=== PATIENT | male | born 1960 | race Caucasian/White ===

== ENCOUNTER 2020-02-12 14:51 | Inpatient (IN) ==
[2020-02-12] MEDS ORDERED: ONDANSETRON INJ 2 MG/ML 2 ML VIAL IV PRN (15:06)
[2020-02-12] MEDS ORDERED: NITROGLYCERIN SL 0.4 MG/TAB TAB SL PRN (15:06)
[2020-02-12] MEDS ORDERED: ACETAMINOPHEN 325 MG TAB PO PRN (15:06)
[2020-02-12] MEDS ORDERED: POLYETHYLENE (MIRALAX) 17 GM PACK PO PRN (15:06)
[2020-02-12] MEDS ORDERED: ALUMINUM/MAGNESIUM SUSP 30 ML UDC PO PRN (15:06)
[2020-02-12] MEDS ORDERED: MAGNESIUM HYDROXIDE SUSP 30 ML UDC PO PRN (15:06)
[2020-02-12 16:31] LABS: Basophils # (auto) 0.01 K/uL (0-0.2); Basophils % (auto) 0.1 %; Eosinophils # (auto) 0.14 K/uL (0-0.5); Eosinophils % (auto) 1.5 %; Hematocrit (blood only) 46.6 % (42-52); Hemoglobin 15.5 g/dL (14.0-18.0); Immature Granulocytes # (auto) 0.02 K/uL (0.00-0.02); Immature Granulocytes % (auto) 0.2 %; Lymphocytes # (auto) 1.27 K/uL (1.2-3.4); Lymphocytes % (auto) 13.7 %; Mean Corpuscular Hemoglobin 32.6 pg (25-34); Mean Corpuscular Volume 97.9 fL (80-100); Mean Platelet Volume 11.5 fL (7.4-10.4); Monocytes # (auto) 0.53 K/uL (0.11-0.59); Monocytes % (auto) 5.7 %; Neutrophils # (auto) 7.29 K/uL (1.4-6.5); Neutrophils % (auto) 78.8 %; Platelet Count 164 K/uL (130-400); RDW Coefficient of Variation 14.2 % (11.5-14.5); Red Blood Count 4.76 M/uL (4.7-6.1); White Blood Count 9.26 K/uL (4.8-10.8)
[2020-02-12 16:41] LABS: Mean Corpuscular Hgb Conc 33.3 g/dL (32-36)
[2020-02-12 16:42] LABS: INR 1.1 (0.9-1.1); Partial Thromboplastin Ratio 1.1; Partial Thromboplastin Time 29.3 Seconds (21.0-31.0); Prothrombin Time 11.7 Seconds (9.0-12.0)
[2020-02-12 16:48] LABS: Alanine Aminotransferase 29 U/L (12-78); Albumin Level 3.4 gm/dl (3.4-5.0); Aspartate Aminotransferase 13 U/L (15-37); BUN Creatinine Ratio 13.7 (10-20); Blood Urea Nitrogen 20 mg/dl (7-18); Calcium 9.5 mg/dl (8.5-10.1); Carbon Dioxide 24 mmol/L (21-32); Chloride 103 mmol/L (98-107); Est GFR (African American) 60.2; Glucose 139 mg/dl (70-99); Magnesium 2.3 mg/dl (1.8-2.4); Potassium 4.5 mmol/L (3.5-5.1); Sodium 137 mmol/L (136-145)
[2020-02-12 16:54] LABS: Albumin Globulin Ratio 0.9 (0.9-2); Alkaline Phosphatase 95 U/L (45-117); Bilirubin,Total 0.9 mg/dl (0.2-1); Globulin 3.6 gm/dl (2.5-4.0); Troponin I 0.068 ng/ml (0-0.045)
[2020-02-12] MEDS ORDERED: FUROSEMIDE 60 MG in SYRINGE 0 ML IV ONE (17:15)
--- NOTE | 2020-02-12 17:53 | History & Physical Report ---
Date of Service February 12, 2020 Assessment & Plan (1) Acute CHF: -Directly admitted to telemetry unit from cardiology office for evaluation and management of acute CHF, type to be determined. Suspect underlying ischemic disease. -Echo obtained, awaiting reports -Troponin mildly elevated 0.068, no reports of chest pain. EKG in the cardiology office today demonstrated evidence of prior anterior infarct and T wave inversions in the inferior leads -Lasix 60 mg IV twice daily, heparin drip, metoprolol tartrate 12.5 mg every 6 hours as per cardiology -N.p.o. after midnight for possible cath in the morning (2) Abnormal renal function: -Creatinine 1.45 -01/19-1.5, 02/09-1.6 -Likely underlying CKD -Monitor renal functions (3) DVT prophylaxis: -On IV heparin Admission and Anticipated Discharge Date Admission Date: February 12, 2020 History of Present Illness Chief Complaint: Report to cardiology for direct admission for management of CHF Primary Care Provider: Shaji Summers PA-C 59-year-old male without significant PMH due to lack of medical care over the past several years, was referred to the hospital as a direct admission by cardiology for evaluation and management of CHF. Patient recently reestablished with a PCP about 1 month ago after not being seen by medical provider since about 1994. Patient had reported progressive worsening shortness of breath and lower extremity edema over the past several months. Work-up demonstrated evidence of CHF and patient was referred to cardiology where he was seen in the clinic today. Patient reports progressive worsening of shortness of breath minimal exertion over the past several months and recent development of lower extremity edema and orthopnea over the past couple of weeks. Notes about a 12 pound weight gain. Patient was prescribed Lasix by PCP and reports small amount of improvement in lower extremity edema. Patient denies chest pain. No lightheadedness, dizziness, diaphoresis, syncopal events. Denies abdominal pain, nausea, vomiting, diarrhea. No other recent illnesses, fevers, chills. Denies urinary symptoms. EKG obtained on 01/15 showed evidence of anterior infarct. ProBNP on 02/02 14,460. EKG obtained in the office today demonstrated new T wave inversions in the inferior leads. At the time my exam, patient is resting in bed in no acute distress. Allergies Allergy/AdvReac Type Severity Reaction Status Date / Time rabbit dander Allergy Watery Eye Verified 02/12/20 17:33 ragweed pollen Allergy Watery Eye Verified 02/12/20 17:33 Home Medications Home Medications Medication Instructions Recorded Confirmed Type albuterol sulfate 2 puff INHALATION QID PRN 02/12/20 02/12/20 History bupropion HCl (smoking deter) 150 mg PO BID 02/12/20 02/12/20 History furosemide [Lasix] 20 mg PO DAILY 02/12/20 02/12/20 History tamsulosin [Flomax] 0.4 mg PO DAILY 02/12/20 02/12/20 History Past Med/Surg History Medical History BPH (benign prostatic hyperplasia) Surgical History No significant past surgical history Family History Mother Cancer Father Heart valve replaced Social History Smoking Status: Current every day smoker Cigarettes Per Day: 2; Hx Alcohol Use: Yes Alcohol type: beer Hx Substance Use: No Preferred Language: Gambian Communication Ability: Effective Beliefs That Will Affect Care: None Current Living Situation: Other Other Information That Helps Us Care for You: No Feels Safe at Home: Yes Assistive Devices: None Review of Systems Review of Systems: ROS per HPI, all other systems reviewed and negative Physical Exam Constitutional: WD/WN, vitals as above Eyes: PERRL, conjunctivae normal, anicteric sclerae ENMT: external ear and nose normal, oropharynx normal Respiratory: normal respiratory effort; no respiratory distress Auscultation: + diminished lung sounds Cardiovascular: Rate/Rhythm: regular rate and regular rhythm Vessels: normal peripheral pulses Extremities: + edema (+2 pitting edema BLE) Gastrointestinal (Abdomen): normal bowel sounds, soft, nontender, no hepatosplenomegaly Musculoskeletal: no cyanosis or clubbing, extremities motor strength 5/5 Skin: no rashes, warm and dry Neurologic: PERRL, EOMI, accommodation nl, no face palsy, no dysarthria Psychiatric: A+Ox3, euthymic affect Results & Data Results & Data ([facility]) Vital Signs (Past 12 Hours) Vital Signs Temp Pulse Pulse Resp BP Pulse Ox 02/12/20 17:02 96 H 02/12/20 16:01 36.7 C 99 H 20 133/92 95 Laboratory Results Short CBC 02/12/20 Range/Units 16:07 WBC 9.26 (4.8-10.8) K/uL Hgb 15.5 (14.0-18.0) g/dL Hct 46.6 (42-52) % Plt Count 164 (130-400) K/uL BMP 02/12/20 16:07 Sodium 137 Potassium 4.5 Chloride 103 Carbon Dioxide 24 BUN 20 H Creatinine 1.45 H Glucose 139 H Calcium 9.5 Cardiac Enzymes 02/12/20 Range/Units 16:07 Troponin I 0.068 H* (0-0.045) ng/ml Liver Function 02/12/20 Range/Units 16:07 Total Bilirubin 0.9 (0.2-1) mg/dl AST 13 L (15-37) U/L ALT 29 (12-78) U/L Alkaline Phosphatase 95 (45-117) U/L Albumin 3.4 (3.4-5.0) gm/dl Code Status & VTE Plan Code Status Patient is a full code as per my discussion with him. VTE Prophylaxis Plan VTE Prophylaxis will be ordered: Yes Supervising Physician Co-Signing Physician Notes Patient was seen and examined by me, care coordinated with MADDIE Gaytan. Please see her note above for further details. Pt is a 59-year-old male without significant medical hx due to lack of medical care over the past several years, was referred to the hospital as a direct admission by cardiology for evaluation and management of CHF. Pt is currently sitting up in bed, in no acute distress. He does report history of orthopnea and history of lower extremity edema bilaterally. His is present at the bedside, and reports that patient has been short of breath for past couple of months. Currently he is in no acute distress, he is alert and oriented answering questions appropriately. He denies any fevers, chills, chest pain. He says he has occasional cough however this has been chronic, patient is a smoker. Denies any significant sputum production. Mild diffuse rhonchi noted on lung exam, with bibasilar crackles. Heart sounds regular, with positive systolic murmur. Significant lower extremity edema, about 2+ pitting. Skin is warm dry, well-perfused. Patient moves all 4 extremities spont aneously. Abdomen is soft, obese, nontender mildly distended. Discussed with cardiology, plan for echocardiogram, ECG, basic blood work including renal function and troponin. Plan for aggressive diuresis with IV Lasix. Likely cardiac cath in the future after diuresis. MD Chivo
--- NOTE | 2020-02-12 18:05 | XRay Report ---
XR chest 1V portable HISTORY: Shortness of breath. COMPARISON: None. FINDINGS: The cardiac silhouette is mildly enlarged. There is perihilar interstitial and vascular thi ckening consistent with mild pulmonary edema. No pleural effusions. No pneumothorax. IMPRESSION: Cardiomegaly with mild interstitial pulmonary edema. ACT 112: Negative or not required by law. Electronically signed by: Chandu Ortiz M.D. 02/12/2020 6:04 PM
[2020-02-12] MEDS ORDERED: HEPARIN IV BOLUS 7,000 UNITS in SYRINGE 0 ML IV ONE (18:30)
[2020-02-12] MEDS: METOPROLOL TARTRATE 25 MG TAB PO SCH (18:53)
[2020-02-12] MEDS: HEPARIN SODIUM/DEXTROSE 25,000 UNITS/500 ML BAG IV SCH (18:54)
[2020-02-12] MEDS: PATIENT'S ALLERGY INFO NEEDS ENTERED SCH (19:34)
[2020-02-12] MEDS: BuPROPion SR 150 MG TABCR PO SCH (21:10)
[2020-02-13] MEDS: METOPROLOL TARTRATE 25 MG TAB PO SCH ×5 (00:16→23:57)
[2020-02-13] MEDS ORDERED: ALBUT/IPRATROP 3MG/0.5MG NEB 3 ML VIAL NEB STA (00:34)
[2020-02-13] MEDS ORDERED: FUROSEMIDE 60 MG in SYRINGE 0 ML IV SCH ×2 (01:00→06:00)
[2020-02-13 01:04] LABS: Hematocrit (blood only) 46.9 % (42-52); Mean Corpuscular Hemoglobin 31.6 pg (25-34); Mean Corpuscular Volume 98.7 fL (80-100); Mean Platelet Volume 10.9 fL (7.4-10.4); Platelet Count 182 K/uL (130-400); RDW Coefficient of Variation 14.1 % (11.5-14.5); Red Blood Count 4.75 M/uL (4.7-6.1); White Blood Count 8.63 K/uL (4.8-10.8)
[2020-02-13 01:25] LABS: Partial Thromboplastin Ratio 2.1
[2020-02-13 01:29] LABS: BUN Creatinine Ratio 14.4 (10-20); Calcium 9.3 mg/dl (8.5-10.1); Creatinine Clr Calc Pharmacy 53.3 ml/min; Est GFR (Non-African American) 42.3; Potassium 4.2 mmol/L (3.5-5.1)
[2020-02-13 01:35] LABS: Partial Thromboplastin Time 58.7 Seconds (21.0-31.0)
[2020-02-13 06:02] LABS: Estimated Average Glucose 166 mg/dl; Hemoglobin A1C 7.4 % (4.5-5.6)
[2020-02-13] MEDS: ALBUT/IPRATROP 3MG/0.5MG NEB 3 ML VIAL NEB PRN ×2 (06:05→19:07)
[2020-02-13 07:47] LABS: Partial Thromboplastin Ratio 1.8
[2020-02-13 07:51] LABS: Partial Thromboplastin Time 49.3 Seconds (21.0-31.0)
[2020-02-13] MEDS: TAMSULOSIN HCL 0.4 MG CAP PO SCH (07:52)
[2020-02-13] MEDS: BuPROPion SR 150 MG TABCR PO SCH ×2 (07:53→21:08)
--- NOTE | 2020-02-13 08:30 | Cardiology Consultation ---
Date of Consultation February 13, 2020 Assessment & Plan (1) Severe aortic stenosis: (2) CKD (chronic kidney disease): (3) Tobacco abuse: (4) DM2 (diabetes mellitus, type 2): (5) Heart failure with acute decompensation, type unknown: Patient initially presented in decompensated heart failure with etiology unknown. Stat echocardiogram revealed a severely reduced LV systolic function with apical dyskinesis and critical aortic stenosis. Ischemia has not been ruled out as a possible cause for his decreased EF and will require cardiac catheterization during this admission. Obviously, aortic stenosis is also possible nidus of his failure. He has been started on low-dose beta-astrid, IV Lasix and heparin for possible LV thrombus. We will continue with aggressive diuresis today and follow renal function did bump slightly after 2 doses of Lasix. Electrolytes remain within normal range and will continue to be followed and repleted as necessary. We will repeat a limited echocardiogram to further evaluate for possible apical thrombus and heparin will be continued for now We will hold off on making any other medication at additions at this time given his relative hypotension History of Present Illness Reason for Consultation: Acute decompensated CHF Requesting Physician: Delmis PERKINS Attending Physician: Jose Moncada MD History of Present Illness Chief complaint: Progressive shortness of breath Mr. Duron is a very pleasant 59-year-old gentleman who has been a refugee from medical care since 1996. He initially established with Hunter Lomeli PCP last week with complaints of progressive shortness of breath over several months. He and his state that he is always short of breath at baseline but they have always written that off to his cigarette use. However, over the last 3 months they have noticed he has been having increasing dyspnea with exertion. She states that is to the point now where he if he walks up from the basement steps he has to lean over the kitchen table for several minutes to get his breath back. This is occasionally associated with significant palpitations as well which he describes as his heart beating out of his chest. He completely denies any chest discomfort with these episodes though. He has also noticed significant orthopnea to the point where he can not lie down for more than a few minutes before he starts feeling like he is drowning. He has also developed significant lower extremity edema and abdominal distention. At his initial evaluation blood work was drawn which showed a BNP of over 14,000 and a GFR of 46. Initial EKG showed old anterior infarct pattern with repeat EKG confirming old inferior infarct pattern but now significant ST segment depressions in the inferior and lateral leads as well. During the interview today he was dyspneic with exertion. He was directly admitted to telemetry on 02/12/2020. Repeat chest x-ray confirmed vascular congestion. Stat echocardiogram showed severely reduced LV systolic function with an EF of less than 15% and critical aortic stenosis. Low-dose beta-astrid was started and Lasix was made IV twice daily. Also been well controlled overnight. Allergies Allergy/AdvReac Type Severity Reaction Status Date / Time rabbit dander Allergy Watery Eye Verified 02/12/20 17:33 ragweed pollen Allergy Watery Eye Verified 02/12/20 17:33 Home Medications Home Medications Medication Instructions Recorded Confirmed Type albuterol sulfate 2 puff INHALATION QID PRN 02/12/20 02/12/20 History bupropion HCl (smoking deter) 150 mg PO BID 02/12/20 02/12/20 History furosemide [Lasix] 20 mg PO DAILY 02/12/20 02/12/20 History tamsulosin [Flomax] 0.4 mg PO DAILY 02/12/20 02/12/20 History Patient History Medical History BPH (benign prostatic hyperplasia) Surgical History No significant past surgical history Family History Mother Cancer Father Heart valve replaced Social History Smoking Status: Current every day smoker Cigarettes Per Day: 2; Hx Alcohol Use: Yes Alcohol type: beer Hx Substance Use: No Preferred Language: Malaysian Communication Ability: Effective Beliefs That Will Affect Care: None Current Living Situation: Other Other Information That Helps Us Care for You: No Feels Safe at Home: Yes Assistive Devices: None Review of Systems Review of Systems: All systems reviewed & are unremarkable except as noted in HPI & below Physical Exam Physical Exam: General: Awake, alert and oriented x 3. No acute distress. HEENT: Normocephalic, atraumatic. Pupils equal, round and reactive to light and accommodation. Extraocular muscles are intact. Anicteric sclera. Moist mucous membranes. Neck: No JVD. No bruit. Cardiovascular: Regular. Positive S-4. Normal S-1 and S-2. No S-3. 3/6 mid to late systolic ejection murmur, greatest at the right sternal border, second intercostal space with radiation to the bilateral carotids. No rubs. Pulmonary: Clear to auscultation bilaterally. No rales, rhonchi, or wheezing. Abdomen: Bowel sounds x 4, soft. No rebound, guarding or tenderness. No organomegaly. Extremities: No clubbing, cyanosis or edema. +2 pedal pulses bilaterally. Skin: Warm and dry. Results & Data ([facility]) Vital Signs (Past 12 Hours) Vital Signs Temp Pulse Resp BP BP Pulse Ox 02/13/20 07:18 36.6 C 65 18 117/77 92 02/13/20 06:05 65 14 99 02/13/20 03:10 36.4 C L 70 16 113/83 97 02/13/20 00:42 70 16 97 02/13/20 00:00 36.7 C 75 18 122/87 97 Laboratory Results Laboratory Results - last 24 hr 02/12/20 02/12/20 02/12/20 16:07 16:07 16:07 WBC 9.26 RBC 4.76 Hgb 15.5 Hct 46.6 MCV 97.9 MCH 32.6 MCHC 33.3 RDW Std Deviation 51.0 H RDW Coeff of Alpa 14.2 Plt Count 164 MPV 11.5 H Immature Gran % (Auto) 0.2 Neut % (Auto) 78.8 Lymph % (Auto) 13.7 Edwards % (Auto) 5.7 Eos % (Auto) 1.5 Baso % (Auto) 0.1 Neut # (Auto) 7.29 H Lymph # (Auto) 1.27 Edwards # (Auto) 0.53 Eos # (Auto) 0.14 Baso # (Auto) 0.01 Immature Gran # (Auto) 0.02 PT 11.7 INR 1.1 APTT 29.3 PTT Ratio 1.1 Sodium 137 Potassium 4.5 Chloride 103 Carbon Dioxide 24 Anion Gap 10.0 BUN 20 H Creatinine 1.45 H Est Cr Clr Drug Dosing Not Reportable Est GFR ( Amer) 60.2 Est GFR (Non-Af Amer) 52.0 BUN/Creatinine Ratio 13.7 Glucose 139 H Estimat Average Glucose Hemoglobin A1c Calcium 9.5 Magnesium 2.3 Total Bilirubin 0.9 AST 13 L ALT 29 Alkaline Phosphatase 95 Troponin I 0.068 H* Total Protein 7.0 Albumin 3.4 Globulin 3.6 Albumin/Globulin Ratio 0.9 02/13/20 02/13/20 02/13/20 00:53 00:53 00:53 WBC 8.63 RBC 4.75 Hgb 15.0 Hct 46.9 MCV 98.7 MCH 31.6 MCHC 32.0 RDW Std Deviation 51.0 H RDW Coeff of Alpa 14.1 Plt Count 182 MPV 10.9 H Immature Gran % (Auto) Neut % (Auto) Lymph % (Auto) Edwards % (Auto) Eos % (Auto) Baso % (Auto) Neut # (Auto) Lymph # (Auto) Edwards # (Auto) Eos # (Auto) Baso # (Auto) Immature Gran # (Auto) PT INR APTT PTT Ratio Sodium 137 Potassium 4.2 Chloride 101 Carbon Dioxide 27 Anion Gap 10.0 BUN 25 H Creatinine 1.72 H Est Cr Clr Drug Dosing 53.3 Est GFR ( Amer) 49.0 Est GFR (Non-Af Amer) 42.3 BUN/Creatinine Ratio 14.4 Glucose 135 H Estimat Average Glucose 166 Hemoglobin A1c 7.4 H Calcium 9.3 Magnesium Total Bilirubin AST ALT Alkaline Phosphatase Troponin I Total Protein Albumin Globulin Albumin/Globulin Ratio 02/13/20 02/13/20 00:53 07:12 WBC RBC Hgb Hct MCV MCH MCHC RDW Std Deviation RDW Coeff of Alpa Plt Count MPV Immature Gran % (Auto) Neut % (Auto) Lymph % (Auto) Edwards % (Auto) Eos % (Auto) Baso % (Auto) Neut # (Auto) Lymph # (Auto) Edwards # (Auto) Eos # (Auto) Baso # (Auto) Immature Gran # (Auto) PT INR APTT 58.7 H* 49.3 H* PTT Ratio 2.1 1.8 Sodium Potassium Chloride Carbon Dioxide Anion Gap BUN Creatinine Est Cr Clr Drug Dosing Est GFR ( Amer) Est GFR (Non-Af Amer) BUN/Creatinine Ratio Glucose Estimat Average Glucose Hemoglobin A1c Calcium Magnesium Total Bilirubin AST ALT Alkaline Phosphatase Troponin I Total Protein Albumin Globulin Albumin/Globulin Ratio Medications Administered Current Inpatient Medications Acetaminophen (Acetaminophen 325 Mg Tab) 650 mg PO Q4H PRN PRN Reason: Pain or Fever Stop: 03/13/20 15:05 Al Hydrox/Mg Hydrox/Simethicone (Aluminum/Magnesium Susp 30 Ml Udc) 15 ml PO Q4H PRN PRN Reason: Dyspepsia Stop: 03/13/20 15:05 Albuterol (Albut/Ipratrop 3mg/0.5mg Neb 3 Ml Vial) 3 ml NEB Q2H PRN PRN Reason: Wheezing Stop: 03/14/20 00:33 Last Admin: 02/13/20 06:05 Dose: 3 ml Documented by: Bupropion HCl (Bupropion Sr 150 Mg Tabcr) 150 mg PO BID ESTUARDO Stop: 03/13/20 20:59 Last Admin: 02/13/20 07:53 Dose: 150 mg Documented by: Heparin Sodium/Dextrose (Heparin Sodium/Dextrose) 25,000 units in 500 mls @ 30 mls/hr IV .[id number] [facility]; Protocol Stop: 03/13/20 17:44 Last Titration: 02/13/20 06:52 Dose: 1,500 units/hr, 30 mls/hr Documented by: Furosemide 60 mg/ Syringe 6 mls @ 4 mls/min IV Q12H ESTUARDO Stop: 03/14/20 00:59 Last Admin: 02/13/20 02:27 Dose: 4 mls/min Documented by: Magnesium Hydroxide (Magnesium Hydroxide Susp 30 Ml Udc) 30 ml PO Q12H PRN PRN Reason: Constipation Stop: 03/13/20 15:05 Metoprolol Tartrate (Metoprolol Tartrate 25 Mg Tab) 12.5 mg PO Q6 ESTUARDO Stop: 03/13/20 17:59 Last Admin: 02/13/20 06:01 Dose: 12.5 mg Documented by: Nitroglycerin (Nitroglycerin Sl 0.4 Mg/Tab Tab) 0.4 mg SL UD PRN PRN Reason: Chest Pain Stop: 03/13/20 15:05 Ondansetron HCl (Ondansetron Inj 2 Mg/Ml 2 Ml Vial) 4 mg IV Q6H PRN PRN Reason: Nausea Stop: 03/13/20 15:05 Polyethylene Glycol (Polyethylene (Miralax) 17 Gm Pack) 17 gm PO DAILY PRN PRN Reason: Constipation Stop: 03/13/20 15:05 Tamsulosin HCl (Tamsulosin Hcl 0.4 Mg Cap) 0.4 mg PO DAILY [facility] Stop: 03/14/20 08:59 Last Admin: 02/13/20 07:52 Dose: 0.4 mg Documented by:
[2020-02-13] MEDS ORDERED: PERFLUTREN LIPID MICROSPHERE (DEFINITY) IV ONE (09:46)
[2020-02-13] MEDS: HEPARIN SODIUM/DEXTROSE 25,000 UNITS/500 ML BAG IV SCH (11:12)
[2020-02-13] MEDS: FUROSEMIDE 60 MG in SYRINGE 0 ML IV SCH ×2 (13:24→21:08)
--- NOTE | 2020-02-13 16:43 | Hospitalist Progress Note ---
Date of Service February 13, 2020 Assessment & Plan (1) Acute CHF: was sent from cardiology office for worsening SOB with exertion CXR on admission showed cardiomegaly with mild interstitial pulmonary edema. was starting on lasix 60mg IV BID cardiology on board case discused with Dr. Schneider Lasix increased to 60mg TID IV ECHO showed severely reduced LV systolic function with apical dyskinesis and critical aortic stenosis.EF 15% Will need cardiac work up to r/o any ischemia. 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 Continue IV heparin drip Plan to repeat a limited echo to assess for the apical thrombus Tobacco abuse Counseling on smoking cessation (5) DVT prophylaxis: On IV heparin drip Code status Full code Admission and Anticipated Discharge Date Admission Date: February 12, 2020 Subjective Pt was seen and examined Sitting in bed with no distress Pt said that her breathing slightly improves He said that his LE extremities swelling slightly improve Denies any chest pain, palpitation, dizziness and fever Physical Exam Physical Exam: General- No acute distress Head- atraumatic Eyes- PERRL, EOMI, ENT- oropharynx clear Neck- supple, no JVD Lungs- clear to auscultation Heart- regular rhythm; +murmur Abdomen- normal bowel sounds, soft, nontender Extremities- no calf tenderness, +edema Neuro- alert, oriented x 3; PERRL, EOMI; no facial palsy; no dysarthria Skin- warm & dry Results & Data Results & Data ([facility]) Vital Signs (Past 12 Hours) Vital Signs Temp Pulse Resp BP BP Pulse Ox 02/13/20 15:38 36.3 C L 64 22 107/72 92/62 L 94 02/13/20 11:35 36.9 C 69 13 95/67 L 92 02/13/20 07:18 36.6 C 65 18 117/77 92 02/13/20 06:05 65 14 99
[2020-02-13] MEDS ORDERED: GLUCOSE 10 TABS/TUBE PO PRN (19:22)
[2020-02-13] MEDS ORDERED: CARBOHYDRATES FOR HYPOGLYCEMIA PO PRN (19:22)
[2020-02-13] MEDS ORDERED: GLUCAGON FOR INJ 1 MG VIAL SQ PRN (19:22)
[2020-02-13] MEDS ORDERED: DEXTROSE 50% 50 ML SYRINGE IV PRN (19:22)
[2020-02-13] MEDS ORDERED: GLUCOSE 40% GEL 15 GM TUBE PO PRN (19:22)
[2020-02-13] MEDS: INSULIN ASPART 100 UNITS/ML 3 ML PEN SC SCH (21:08)
[2020-02-14] MEDS: ALBUT/IPRATROP 3MG/0.5MG NEB 3 ML VIAL NEB PRN ×2 (01:02→21:06)
[2020-02-14] MEDS: HEPARIN SODIUM/DEXTROSE 25,000 UNITS/500 ML BAG IV SCH ×2 (03:05→19:10)
[2020-02-14 05:00] LABS: Hematocrit (blood only) 45.4 % (42-52); Hemoglobin 15.3 g/dL (14.0-18.0); Mean Corpuscular Hemoglobin 32.8 pg (25-34); Mean Corpuscular Hgb Conc 33.7 g/dL (32-36); Mean Corpuscular Volume 97.2 fL (80-100); Mean Platelet Volume 11.3 fL (7.4-10.4); Platelet Count 166 K/uL (130-400); RDW Coefficient of Variation 14.1 % (11.5-14.5); RDW Standard Deviation 50.3 fL (36.4-46.3); Red Blood Count 4.67 M/uL (4.7-6.1); White Blood Count 8.74 K/uL (4.8-10.8)
[2020-02-14 05:18] LABS: BUN Creatinine Ratio 19.1 (10-20); Creatinine Clr Calc Pharmacy 43.9 ml/min; Est GFR (African American) 39.2; Est GFR (Non-African American) 33.8; Potassium 4.1 mmol/L (3.5-5.1)
[2020-02-14 05:27] LABS: Partial Thromboplastin Time 56.5 Seconds (21.0-31.0)
[2020-02-14] MEDS: FUROSEMIDE 60 MG in SYRINGE 0 ML IV SCH ×2 (05:53→14:43)
[2020-02-14] MEDS: INSULIN ASPART 100 UNITS/ML 3 ML PEN SC SCH ×4 (05:55→21:14)
[2020-02-14] MEDS: METOPROLOL TARTRATE 25 MG TAB PO SCH ×3 (06:34→17:45)
[2020-02-14] MEDS: BuPROPion SR 150 MG TABCR PO SCH ×2 (07:58→19:53)
[2020-02-14] MEDS: TAMSULOSIN HCL 0.4 MG CAP PO SCH (07:58)
--- NOTE | 2020-02-14 10:54 | Cardiology Progress Note ---
Date of Service February 14, 2020 Assessment & Plan (1) Severe aortic stenosis: (2) CKD (chronic kidney disease): (3) Tobacco abuse: (4) DM2 (diabetes mellitus, type 2): (5) Heart failure with acute decompensation, type unknown: Patient initially presented in decompensated heart failure with etiology unknown. Stat echocardiogram revealed a severely reduced LV systolic function with apical dyskinesis and critical aortic stenosis. Ischemia has not been ruled out as a possible cause for his decreased EF and will require cardiac catheterization during this admission. Obviously, aortic stenosis is also possible nidus of his failure. He has been started on low-dose beta-astrid, IV Lasix and heparin I will defer diuretic management to our Nephrology colleagues now that his creatinine is continue to dip. My hope is that his renal function will improve and he will continue to diurese it when may be all form cardiac catheterization early next week. At this point I am unable to increase his medications any further given his relative bradycardia and hypotension. My hope is that with further diuresis and the effect on the Starling curve was of of his LV we will see an increase in his blood pressure. Ultimately, will require CT surgery evaluation for aortic valve replacement and possible CABG depending on results of his catheterization. Continue monitor on telemetry. Admission and Anticipated Discharge Date Admission Date: February 12, 2020 Subjective Patient seen and examined, chart reviewed. and daughter at the bedside. States he still significantly orthopneic overnight and has not noticed much change in his breathing. He has been diuresing well and does feel his lower extremity edema is improving somewhat. He continues to deny any chest pain, palpitations, lightheadedness or dizziness. Telemetry reviewed: Normal sinus rhythm without arrhythmias or significant ectopy. Review of Systems Review of Systems: All systems reviewed & are unremarkable except as noted in HPI & below Physical Exam Physical Exam: General: Awake, alert and oriented x 3. No acute distress. HEENT: Normocephalic, atraumatic. Pupils equal, round and reactive to light and accommodation. Extraocular muscles are intact. Anicteric sclera. Moist mucous membranes. Neck: No JVD. No bruit. Cardiovascular: Regular. Positive S-4. Normal S-1 and S-2. No S-3. 3/6 mid to late systolic ejection murmur, greatest at the right sternal border, second intercostal space with radiation to the bilateral carotids. No rubs. Pulmonary: Clear to auscultation bilaterally. No rales, rhonchi, or wheezing. Abdomen: Bowel sounds x 4, soft. No rebound, guarding or tenderness. No organomegaly. Extremities: No clubbing, cyanosis or edema. +2 pedal pulses bilaterally. Skin: Warm and dry. Results & Data ([facility]) Vital Signs (Past 12 Hours) Vital Signs Temp Pulse Resp BP BP Pulse Ox 02/14/20 08:13 36.4 C L 66 18 104/70 93 02/14/20 06:33 63 118/85 02/14/20 05:52 66 101/61 02/14/20 02:55 36.3 C L 66 17 90/62 L 95 02/14/20 01:04 65 16 98 02/13/20 23:25 36.5 C 63 18 110/78 94
--- NOTE | 2020-02-14 12:37 | Electrocardiogram Report ---
Test Reason : Blood Pressure : / mmHG Vent. Rate : 066 BPM Atrial Rate : 066 BPM P-R Int : 182 ms QRS Dur : 094 ms QT Int : 460 ms P-R-T Axes : 057 039 107 degrees QTc Int : 482 ms Sinus rhythm Premature atrial complexes Possible Left atrial enlargement Anterior infarct , age undetermined Abnormal ECG No previous ECG available for comparison Confirmed by Rob Marlow ([id number]) on 02/14/2020 12:37:39 PM Referred By: True Stern Confirmed By:Rob Marlow
--- NOTE | 2020-02-14 16:01 | Hospitalist Progress Note ---
Date of Service February 14, 2020 Assessment & Plan (1) Acute CHF: was sent from cardiology office for worsening SOB with exertion CXR on admission showed cardiomegaly with mild interstitial pulmonary edema. was starting on lasix 60mg IV BID Cardiology on board lasix help due to bumped on creatinine ECHO showed severely reduced LV systolic function with apical dyskinesis and critical aortic stenosis.EF 15% Will need cardiac work up to r/o any ischemia. 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 Continue IV heparin drip Plan to repeat a limited echo to assess for the apical thrombus Tobacco abuse Counseling on smoking cessation (5) DVT prophylaxis: On IV heparin drip Code status Full code Admission and Anticipated Discharge Date Admission Date: February 12, 2020 Subjective Pt was seen and examined Sitting at the edge of the bed with no distress Pt said that he feels ok He said that his breathing is ok Denies any chest pain, palpitation, dizziness and SOB Physical Exam Physical Exam: General- No acute distress Head- atraumatic Eyes- PERRL, EOMI, ENT- oropharynx clear Neck- supple, no JVD Lungs- clear to auscultation Heart- regular rhythm; +murmur Abdomen- normal bowel sounds, soft, nontender Extremities- no calf tenderness, +edema Neuro- alert, oriented x 3; PERRL, EOMI; no facial palsy; no dysarthria Skin- warm & dry Results & Data Results & Data ([facility]) Vital Signs (Past 12 Hours) Vital Signs Temp Pulse Resp BP BP Pulse Ox 02/14/20 15:23 36.5 C 64 21 94/66 L 90/60 L 93 02/14/20 11:57 36.4 C L 64 18 94/60 L 91 02/14/20 08:13 36.4 C L 66 18 104/70 93 02/14/20 06:33 63 118/85 02/14/20 05:52 66 101/61
--- NOTE | 2020-02-14 16:08 | Nephrology Consultation ---
Date of Consultation February 14, 2020 Assessment & Plan (1) FRANSISCO (acute kidney injury): Patient with acute kidney injury likely due to cardiorenal syndrome. Patient has severe aortic stenosis and low EF. He likely preload dependent. Admission creatinine was 1.5. Patient likely has baseline CKD stage 3. He had a creatinine of 1.5 in December as well. -patient will need the gentle diuresis as discussed below -will check renal ultrasound for morphology. -will check urine protein and urine microscopy -avoid hypotension and monitor renal function with daily BMP. (2) Heart failure with acute decompensation, type unknown: Patient with the CHF responding well to Lasix. Agree with the diuresis to optimize his volume status before cardiac catheterization. Given severe aortic stenosis, will do gentle diuresis. Patient has already received 60 mg of IV Lasix this morning. Will not given additional Lasix today. Consider starting Lasix tomorrow at 20 mg IV twice daily. Target the net loss of about 1-2 L daily. (3) Severe aortic stenosis: Patient with severe aortic stenosis on echocardiogram and the preload dependent. Avoid aggressive diuresis. Cardiology planning cardiac catheterization early next week. Recommend holding Lasix the day prior to cardiac catheterization. History of Present Illness Reason for Consultation: FRANSISCO on CKD Requesting Physician: Jose Moncada MD Attending Physician: Jose Moncada MD History of Present Illness This 59-year-old male being seen for acute kidney injury on CKD. He was admitted on 02/12/2020 with shortness of breath due to CHF exacerbation. Creatinine on admission was 1.5 but has increased to 2 after starting him on IV Lasix 60 mg twice daily. Patient has not seen doctors since 1996. For he told me he had the a big kidney stone in the left kidney in 1996 and it was dissolved with medications. He has not seen doctors since then. He is making urine and was net -3 L yesterday. His breathing has improved. He still has leg swelling but is also improving. Echo shows an EF of 20 25% and severe aortic stenosis. Patient lives at home with his . He was seen today with the daughter at the bedside. 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 He currently smokes 2 cigarettes a day but has been a long-term heavy smoker Allergies Allergy/AdvReac Type Severity Reaction Status Date / Time rabbit dander Allergy Watery Eye Verified 02/12/20 17:33 ragweed pollen Allergy Watery Eye Verified 02/12/20 17:33 Home Medications Home Medications Medication Instructions Recorded Confirmed Type albuterol sulfate 2 puff INHALATION QID PRN 02/12/20 02/12/20 History bupropion HCl (smoking deter) 150 mg PO BID 02/12/20 02/12/20 History furosemide [Lasix] 20 mg PO DAILY 02/12/20 02/12/20 History tamsulosin [Flomax] 0.4 mg PO DAILY 02/12/20 02/12/20 History Patient History Medical History BPH (benign prostatic hyperplasia) Surgical History No significant past surgical history Family History Mother Cancer Father Heart valve replaced Social History Smoking Status: Current every day smoker Cigarettes Per Day: 2; Hx Alcohol Use: Yes Alcohol type: beer Hx Substance Use: No Preferred Language: Urdu Communication Ability: Effective Beliefs That Will Affect Care: None marital status: Single Current Living Situation: Other Other Information That Helps Us Care for You: No Feels Safe at Home: Yes Assistive Devices: None Review of Systems Review of Systems: All systems reviewed & are unremarkable except as noted in HPI & below Physical Exam Physical Exam: General exam: Appears comfortable, no acute distress HEENT: Pupils are equal and reactive to light Neck: No JVD, neck is supple trachea is midline Respiratory system: Clear breath sounds bilaterally. Gastrointestinal: Abdomen is soft, non distended, non tender, bowel sounds are present CVS: Regular rate and rhythm. No murmurs, rubs or gallops Musculoskeletal: No joint or muscle tenderness Extremities: Non tender, 1+ edema, peripheral pulses are present Neuro: Oriented, no tremors, no focal neurological deficits Skin: No rashes Results & Data ([facility]) Vital Signs (Past 12 Hours) Vital Signs Temp Pulse Resp BP BP Pulse Ox 02/14/20 15:23 36.5 C 64 21 94/66 L 90/60 L 93 02/14/20 11:57 36.4 C L 64 18 94/60 L 91 02/14/20 08:13 36.4 C L 66 18 104/70 93 09/25/20 06:33 63 118/85 02/14/20 05:52 66 101/61 Laboratory Results 02/14/20 04:52 02/14/20 04:52 WBC 8.74 RBC 4.67 L MCV 97.2 MCH 32.8 MCHC 33.7 RDW Std Deviation 50.3 H RDW Coeff of Alpa 14.1 Plt Count 166 MPV 11.3 H
[2020-02-14 16:29] LABS: Appearance Urine Cloudy (Clear); Bacteria Urine Automated 1+ (Negative); Bilirubin Urine Negative (Negative); Blood Urine Trace (Negative); Color Urine Yellow; Glucose Urine UA Negative (Negative); Ketones Urine Negative (Negative); Leukocyte Esterase Urine 3+ (Negative); Nitrite Urine Positive (Negative); Protein Urine Negative (Negative); Specific Gravity Urine 1.012 (1.000-1.030); Urobilinogen Urine Negative (Negative); WBC Urine Automated >30 /hpf (0-5); pH Urine 5.5 (4.5-7.5)
[2020-02-14 16:53] LABS: Creatinine Urine Random 67.1 mg/dl; Protein Creatinine Ratio Urine 0.2 (0-0.2); Total Protein Urine Random 13.4 mg/dl (0-11.9)
[2020-02-14 16:56] LABS: RBC Urine Automated 0-4 /hpf (0-4)
--- NOTE | 2020-02-14 20:48 | Ultrasound Report ---
RENAL ULTRASOUND CLINICAL HISTORY: CKD, renal stones COMPARISON STUDY: None. TECHNIQUE: Sonography of the kidneys and the urinary bladder was performed. FINDINGS: Left kidney is partially obscured on this examination. The left kidney measures approximate ly 8 cm in length. There is moderate left renal atrophy. No hydronephrosis is present. The right kidn ey measures 11.2 cm in maximal dimension. No calculus or mass is identified although sensitivity is d iminished on this exam. Both ureteral jets were identified. Mild bladder wall irregularity is noted. IMPRESSION: 1. No hydronephrosis. 2. Moderate left renal atrophy. 3. Mild bladder wall irregularity. ACT 112: Negative or not required by law. Electronically signed by: Moshe Jackson M.D. 02/14/2020 8:47 PM
[2020-02-15] MEDS: METOPROLOL TARTRATE 25 MG TAB PO SCH ×5 (00:04→23:35)
[2020-02-15 06:09] LABS: Partial Thromboplastin Ratio 1.8
[2020-02-15 06:26] LABS: Partial Thromboplastin Time 50.7 Seconds (21.0-31.0)
[2020-02-15 06:28] LABS: BUN Creatinine Ratio 20.5 (10-20); Calcium 9.6 mg/dl (8.5-10.1); Est GFR (African American) 32.8; Est GFR (Non-African American) 28.3; Potassium 4.2 mmol/L (3.5-5.1)
[2020-02-15] MEDS: TAMSULOSIN HCL 0.4 MG CAP PO SCH (08:27)
[2020-02-15] MEDS: BuPROPion SR 150 MG TABCR PO SCH ×2 (08:27→20:33)
[2020-02-15] MEDS: INSULIN ASPART 100 UNITS/ML 3 ML PEN SC SCH ×4 (08:28→20:36)
--- NOTE | 2020-02-15 08:56 | Nephrology Progress Note ---
Date of Service February 15, 2020 Assessment & Plan (1) FRANSISCO (acute kidney injury): Patient with acute kidney injury likely due to cardiorenal syndrome. Patient has severe aortic stenosis and low EF. He likely preload dependent. Admission creatinine was 1.5. Patient likely has baseline CKD stage 3. He had a creatinine of 1.5 in December as well. -Decrease the diuretic to 20 mg IV BID -USS shows L-8.0. R- 11.2 with mild left renal atrophy -PCR-0.4, few red cells. -avoid hypotension and monitor renal function with daily BMP. (2) Heart failure with acute decompensation, type unknown: Patient with the CHF responding well to Lasix. Agree with the diuresis to optimize his volume status before cardiac catheterization. Given severe aortic stenosis, will do gentle diuresis. Patient has already received 60 mg of IV Lasix this morning. Will not given additional Lasix today. Consider starting Lasix tomorrow at 20 mg IV twice daily. Target the net loss of about 1-2 L daily. (3) Severe aortic stenosis: Patient with severe aortic stenosis on echocardiogram and the preload dependent. Avoid aggressive diuresis. Cardiology planning cardiac catheterization early next week. Recommend holding Lasix the day prior to cardiac catheterization. Admission and Anticipated Discharge Date Admission Date: February 12, 2020 Results & Data ([facility]) Vital Signs (Past 12 Hours) Vital Signs Temp Pulse Resp BP BP Pulse Ox 02/15/20 08:13 36.5 C 56 L 18 108/72 90 02/15/20 05:50 68 115/80 02/15/20 03:45 36.7 C 60 18 110/75 93 02/15/20 00:02 37 C 62 18 102/69 94 02/14/20 21:07 72 20 96
[2020-02-15 10:50] LABS: Appearance Urine Cloudy (Clear); Bacteria Urine Automated 1+ (Negative); Bilirubin Urine Negative (Negative); Blood Urine Trace (Negative); Cast Urine Automated 0 /lpf (0-5); Color Urine Yellow; Glucose Urine UA Trace (Negative); Ketones Urine Negative (Negative); Leukocyte Esterase Urine 3+ (Negative); Nitrite Urine Positive (Negative); Protein Urine 1+ (Negative); Specific Gravity Urine 1.017 (1.000-1.030); Urobilinogen Urine Negative (Negative); WBC Urine Automated >30 /hpf (0-5); pH Urine 6.5 (4.5-7.5)
--- NOTE | 2020-02-15 10:57 | XRay Report ---
XR chest 2V PA/lateral HISTORY: 59 years-old Male chf patient presents with acute shortness of breath and possible congesti ve heart failure COMPARISON: Chest radiograph 02/12/2020 TECHNIQUE: PA and lateral views of the chest FINDINGS: Cardiac silhouette is moderately enlarged. No pneumothorax, pleural effusion or airspace consolidatio n for pneumonia. There is decreased pulmonary vascular congestion. No overt pulmonary edema. Degenera tive changes of the shoulders and spine. IMPRESSION: Cardiomegaly with decreased pulmonary vascular congestion. ACT 112: Negative or not required by law. The above report was generated using voice recognition software. It may contain grammatical, syntax o r spelling errors. Electronically signed by: Arthur Simon M.D. 02/15/2020 10:55 AM
--- NOTE | 2020-02-15 13:16 | Cardiology Progress Note ---
Date of Service February 15, 2020 Assessment & Plan (1) Severe aortic stenosis: (2) CKD (chronic kidney disease): (3) Tobacco abuse: (4) DM2 (diabetes mellitus, type 2): (5) Heart failure with acute decompensation, type unknown: Patient initially presented in decompensated heart failure with etiology unknown. Stat echocardiogram revealed a severely reduced LV systolic function with apical dyskinesis and critical aortic stenosis. Ischemia has not been ruled out as a possible cause for his decreased EF and will require cardiac catheterization during this admission. Obviously, aortic stenosis is also possible nidus of his failure. He has been started on low-dose beta-astrid, IV Lasix Apical thrombus ruled out we will discontinue IV heparin at this time. I will defer diuretic management to our Nephrology colleagues now that his creatinine is continue to dip. My hope is that his renal function will improve and he will continue to diurese it when may be all form cardiac catheterization early next week. At this point I am unable to increase his medications any further given his relative bradycardia and hypotension. My hope is that with further diuresis and the effect on the Starling curve was of of his LV we will see an increase in his blood pressure. Ultimately, will require CT surgery evaluation for aortic valve replacement and possible CABG depending on results of his catheterization. Continue monitor on telemetry. Admission and Anticipated Discharge Date Admission Date: February 12, 2020 Subjective Patient seen and examined, chart reviewed. Patient's at bedside. States he is feeling better. Notes he continues to diurese. Still unable to lie flat at night but no shortness of breath while up and around during the day. Contin ues to deny chest pain, palpitations, lightheadedness, dizziness or syncope. Telemetry reviewed: Normal sinus rhythm without arrhythmia or significant ectopy. Review of Systems Review of Systems: All systems reviewed & are unremarkable except as noted in HPI & below Physical Exam Physical Exam: General: Awake, alert and oriented x 3. No acute distress. HEENT: Normocephalic, atraumatic. Pupils equal, round and reactive to light and accommodation. Extraocular muscles are intact. Anicteric sclera. Moist mucous membranes. Neck: No JVD. No bruit. Cardiovascular: Regular. Positive S-4. Normal S-1 and S-2. No S-3. 3/6 mid to late systolic ejection murmur, greatest at the right sternal border, second intercostal space with radiation to the bilateral carotids. No rubs. Pulmonary: Clear to auscultation bilaterally. No rales, rhonchi, or wheezing. Abdomen: Bowel sounds x 4, soft. No rebound, guarding or tenderness. No organomegaly. Extremities: No clubbing, cyanosis or edema. +2 pedal pulses bilaterally. Skin: Warm and dry. Results & Data ([facility]) Vital Signs (Past 12 Hours) Vital Signs Temp Pulse Pulse Resp BP BP Pulse Ox 02/15/20 12:29 36.7 C 66 18 103/70 91 02/15/20 08:13 36.5 C 56 L 18 108/72 90 02/15/20 08:00 61 02/15/20 05:50 68 115/80 02/15/20 03:45 36.7 C 60 18 110/75 93
[2020-02-15] MEDS: HEPARIN SODIUM/DEXTROSE 25,000 UNITS/500 ML BAG IV SCH (13:49)
--- NOTE | 2020-02-15 19:21 | Hospitalist Progress Note ---
Date of Service February 15, 2020 Assessment & Plan (1) Acute CHF: acute systolic CHF was sent from cardiology office for worsening SOB with exertion CXR on admission showed cardiomegaly with mild interstitial pulmonary edema. was starting on lasix 60mg IV BID Cardiology on board lasix was on hold due to bumped on creatinine ECHO showed severely reduced LV systolic function with apical dyskinesis and critical aortic stenosis.EF 15% case discussed with Nephrology that recommended lasix 20mg BID IV Will need cardiac work up to r/o any ischemia. 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 Continue IV heparin drip Plan to repeat a limited echo to assess for the apical thrombus Tobacco abuse Counseling on smoking cessation (5) DVT prophylaxis: On IV heparin drip Code status Full code Admission and Anticipated Discharge Date Admission Date: February 12, 2020 Subjective Pt was seen and examined Sitting in chair with no distress Pt said that he feels fine denies any chest pain, palpitation and SOB Physical Exam Physical Exam: General- No acute distress Head- atraumatic Eyes- PERRL, EOMI, ENT- oropharynx clear Neck- supple, no JVD Lungs- clear to auscultation Heart- regular rhythm; +murmur Abdomen- normal bowel sounds, soft, nontender Extremities- no calf tenderness, +edema Neuro- alert, oriented x 3; PERRL, EOMI; no facial palsy; no dysarthria Skin- warm & dry Results & Data Results & Data ([facility]) Vital Signs (Past 12 Hours) Vital Signs Temp Pulse Pulse Resp BP BP Pulse Ox 02/15/20 18:29 77 109/74 02/15/20 16:16 63 02/15/20 15:27 36.4 C L 61 20 96/68 L 95 02/15/20 12:29 36.7 C 66 18 103/70 91 02/15/20 08:13 36.5 C 56 L 18 108/72 90 02/15/20 08:00 61
[2020-02-15] MEDS: FUROSEMIDE 20 MG in SYRINGE 0 ML IV SCH (19:49)
--- NOTE | 2020-02-15 19:57 | Nephrology Progress Note ---
Date of Service February 15, 2020 Assessment & Plan (1) FRANSISCO (acute kidney injury): Patient with acute kidney injury likely due to cardiorenal syndrome. Patient has severe aortic stenosis and low EF, likely preload dependent. Admission creatinine was 1.5. Patient likely has baseline CKD stage 3. He had a creatinine of 1.5 in December as well. - Now has metabolic alkalosis and Rise in serum creatinine secondary to overdiuresis. -Decrease the diuretic to 20 mg IV BID -USS shows L-8.0. R- 11.2 with mild left renal atrophy -PCR-0.4, few red cells. -avoid hypotension and monitor renal function with daily BMP. (2) Heart failure with acute decompensation, type unknown: Patient with the CHF responded well to Lasix. Needs to optimize his volume status before cardiac catheterization. Given severe aortic stenosis , needs gentle diuresis as he is preload dependant..Target the net loss of about 1-2 L daily. Decrease lasix to 20 mg BID as his Blood pressure has been soft. (3) Severe aortic stenosis: Patient with severe aortic stenosis on echocardiogram and the preload dependent.Cardiology on board.. Admission and Anticipated Discharge Date Admission Date: February 12, 2020 Subjective Seen and examined , looks comfortable, Pedal edema almost resoved. Review of Systems Review of Systems: All systems reviewed & are unremarkable except as noted in HPI & below Physical Exam Physical Exam: General- No acute distress Head- atraumatic Eyes- PERRL, EOMI, ENT- oropharynx clear Neck- supple, no JVD Lungs- clear to auscultation Heart- regular rhythm; +murmur Abdomen- normal bowel sounds, soft, nontender Extremities- no calf tenderness, +edema Neuro- alert, oriented x 3; PERRL, EOMI; no facial palsy; no dysarthria Skin- warm & dry Results & Data ([facility]) Vital Signs (Past 12 Hours) Vital Signs Temp Pulse Pulse Resp BP BP Pulse Ox 02/15/20 19:23 36.4 C L 61 19 105/70 95 02/15/20 18:29 77 109/74 02/15/20 16:16 63 02/15/20 15:27 36.4 C L 61 20 96/68 L 95 02/15/20 12:29 36.7 C 66 18 103/70 91 02/15/20 08:13 36.5 C 56 L 18 108/72 90 02/15/20 08:00 61 Laboratory Results 02/14/20 04:52 02/15/20 05:41
[2020-02-16] MEDS: HEPARIN SODIUM/DEXTROSE 25,000 UNITS/500 ML BAG IV SCH ×2 (05:01→19:54)
[2020-02-16] MEDS: METOPROLOL TARTRATE 25 MG TAB PO SCH ×4 (05:37→17:30)
[2020-02-16 06:19] LABS: Partial Thromboplastin Time 28.4 Seconds (21.0-31.0)
[2020-02-16 06:26] LABS: BUN Creatinine Ratio 24.8 (10-20); Calcium 9.3 mg/dl (8.5-10.1); Creatinine Clr Calc Pharmacy 40.5 ml/min; Est GFR (African American) 36.4; Est GFR (Non-African American) 31.4; Potassium 4.7 mmol/L (3.5-5.1)
--- NOTE | 2020-02-16 07:41 | Electrocardiogram Report ---
Test Reason : Blood Pressure : / mmHG Vent. Rate : 064 BPM Atrial Rate : 064 BPM P-R Int : 164 ms QRS Dur : 092 ms QT Int : 462 ms P-R-T Axes : 062 002 109 degrees QTc Int : 476 ms Normal sinus rhythm Anterior infarct (cited on or before 13-FEB-2020) Abnormal ECG When compared with ECG of 13-FEB-2020 06:57, (unconfirmed) No significant change was found Confirmed by Rob Marlow ([id number]) on 02/16/2020 7:41:20 AM Referred By: True Stern Confirmed By:Rob Marlow
[2020-02-16] MEDS: FUROSEMIDE 20 MG in SYRINGE 0 ML IV SCH ×2 (08:34→17:24)
[2020-02-16] MEDS: TAMSULOSIN HCL 0.4 MG CAP PO SCH (08:35)
[2020-02-16] MEDS: BuPROPion SR 150 MG TABCR PO SCH ×2 (08:35→19:54)
[2020-02-16] MEDS: INSULIN ASPART 100 UNITS/ML 3 ML PEN SC SCH ×4 (08:36→19:54)
--- NOTE | 2020-02-16 09:55 | Nephrology Progress Note ---
Date of Service February 16, 2020 Assessment & Plan (1) FRANSISCO (acute kidney injury): Patient with acute kidney injury likely due to cardiorenal syndrome. Patient has severe aortic stenosis and low EF, likely preload dependent. Admission creatinine was 1.5. Patient likely has baseline CKD stage 3. He had a creatinine of 1.5 in December as well. -serum Creatinine improved with lowering the diuretic dose. -Continue on diuretic to 20 mg IV BID -USS shows L-8.0. R- 11.2 with mild left renal atrophy -PCR-0.4, few red cells, repeat U/A on monday. -avoid hypotension and monitor renal function with daily BMP. - will need MAG -2 scan as non urgent for split renal function. (2) Heart failure with acute decompensation, type unknown: Patient with the CHF responded well to Lasix. Needs to optimize his volume status before cardiac catheterization. Given severe aortic stenosis , needs gentle diuresis as he is preload dependant.Target the net loss of about 1-2 L daily. Continue on 20 mg BID of Lasix Can convert to oral tomorrow. (3) Severe aortic stenosis: Patient with severe aortic stenosis on echocardiogram and the preload dependent.Cardiology on board.. Admission and Anticipated Discharge Date Admission Date: February 12, 2020 Subjective Comfortable, no shortness of breath.Pedal edema resolved. UOP has been good. Review of Systems Review of Systems: All systems reviewed & are unremarkable except as noted in Subjective Physical Exam Physical Exam: General- No acute distress Head- atraumatic Eyes- PERRL, EOMI, ENT- oropharynx clear Neck- supple, no JVD Lungs- clear to auscultation Heart- regular rhythm; +murmur Abdomen- normal bowel sounds, soft, nontender Extremities- no calf tenderness, +edema Neuro- alert, oriented x 3; PERRL, EOMI; no facial palsy; no dysarthria Skin- warm & dry Results & Data ([facility]) Vital Signs (Past 12 Hours) Vital Signs Temp Pulse Resp BP BP Pulse Ox 02/16/20 07:28 36.5 C 58 L 18 103/66 97 02/16/20 05:38 60 112/74 02/16/20 04:09 36.5 C 58 L 22 98/59 L 96 02/15/20 23:32 36.4 C L 61 18 100/67 94 Laboratory Results 02/14/20 04:52 02/16/20 05:43
[2020-02-16] MEDS: ALBUT/IPRATROP 3MG/0.5MG NEB 3 ML VIAL NEB PRN (13:11)
--- NOTE | 2020-02-16 14:21 | Cardiology Progress Note ---
Date of Service February 16, 2020 Assessment & Plan (1) Severe aortic stenosis: (2) CKD (chronic kidney disease): (3) Tobacco abuse: (4) DM2 (diabetes mellitus, type 2): (5) Heart failure with acute decompensation, type unknown: Patient initially presented in decompensated heart failure with etiology unknown. Stat echocardiogram revealed a severely reduced LV systolic function with apical dyskinesis and critical aortic stenosis. Ischemia has not been ruled out as a possible cause for his decreased EF and will require cardiac catheterization during this admission. Obviously, aortic stenosis is also possible nidus of his failure. He has been started on low-dose beta-astrid, IV Lasix We will plan for cardiac catheterization in the a.m. At this point I am unable to increase his medications any further given his relative bradycardia and hypotension. Ultimately, will require CT surgery evaluation for aortic valve replacement and possible CABG depending on results of his catheterization. Continue monitor on telemetry. If patient remains symptomatic after cardiac catheterization may require inpatient transfer for aortic valve replacement plus or minus CABG. Admission and Anticipated Discharge Date Admission Date: February 12, 2020 Subjective Patient seen and examined, chart reviewed. Patient's at bedside. States he is feeling well today. Was able to lie a little flatter overnight and denies any shortness of breath at rest. His states that he did have significant shortness of breath with walking the halls last evening. Telemetry reviewed: Normal sinus rhythm without significant arrhythmia or ectopy. Review of Systems Review of Systems: All systems reviewed & are unremarkable except as noted in HPI & below Physical Exam Physical Exam: General: Awake, alert and oriented x 3. No acute distress. HEENT: Normocephalic, atraumatic. Pupils equal, round and reactive to light and accommodation. Extraocular muscles are intact. Anicteric sclera. Moist mucous membranes. Neck: No JVD. No bruit. Cardiovascular: Regular. Positive S-4. Normal S-1 and S-2. No S-3. 3/6 mid to late systolic ejection murmur, greatest at the right sternal border, second intercostal space with radiation to the bilateral carotids. No rubs. Pulmonary: Clear to auscultation bilaterally. No rales, rhonchi, or wheezing. Abdomen: Bowel sounds x 4, soft. No rebound, guarding or tenderness. No organomegaly. Extremities: No clubbing, cyanosis or edema. +2 pedal pulses bilaterally. Skin: Warm and dry. Results & Data ([facility]) Vital Signs (Past 12 Hours) Vital Signs Temp Pulse Pulse Pulse Resp BP BP 02/16/20 13:13 64 18 02/16/20 12:59 64 99/64 L 02/16/20 11:47 36.6 C 59 L 18 99/63 L 02/16/20 10:09 53 L 02/16/20 07:28 36.5 C 58 L 18 103/66 02/16/20 05:38 60 112/74 02/16/20 04:09 36.5 C 58 L 22 98/59 L Pulse Ox 02/16/20 13:13 90 02/16/20 12:59 02/16/20 11:47 93 02/16/20 10:09 02/16/20 07:28 97 02/16/20 05:38 02/16/20 04:09 96
--- NOTE | 2020-02-16 19:16 | Hospitalist Progress Note ---
Date of Service February 16, 2020 Assessment & Plan (1) Acute CHF: Acute systolic CHF was sent from cardiology office for worsening SOB with exertion CXR on admission showed cardiomegaly with mild interstitial pulmonary edema. was starting on lasix 60mg IV BID Cardiology on board lasix was on hold due to bumped on creatinine ECHO showed severely reduced LV systolic function with apical dyskinesis and critical aortic stenosis.EF 15% case discussed with Nephrology that recommended lasix 20mg BID IV Continue lasix 20mg IV, will transition to oral tomorrow Continue low dose beta astrid Will monitor I/O and continue 2L fluid restrictions Plan for cardiac cath in am . 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 Continue IV heparin drip Plan to repeat a limited echo to assess for the apical thrombus Tobacco abuse Counseling on smoking cessation (5) DVT prophylaxis: On IV heparin drip Code status Full code Admission and Anticipated Discharge Date Admission Date: February 12, 2020 Subjective Pt was seen and examined Sitting in bed with no distress Pt said that his breathing feels much better today Denies any chest pain, palpitation, dizziness and SOB Physical Exam Physical Exam: General- No acute distress Head- atraumatic Eyes- PERRL, EOMI, ENT- oropharynx clear Neck- supple, no JVD Lungs- clear to auscultation Heart- regular rhythm; +murmur Abdomen- normal bowel sounds, soft, nontender Extremities- no calf tenderness, +edema Neuro- alert, oriented x 3; PERRL, EOMI; no facial palsy; no dysarthria Skin- warm & dry Results & Data Results & Data ([facility]) Vital Signs (Past 12 Hours) Vital Signs Temp Pulse Pulse Pulse Resp BP BP 02/16/20 17:30 95/64 L 02/16/20 15:26 36.6 C 61 18 103/70 02/16/20 13:13 64 18 02/16/20 12:59 64 99/64 L 02/16/20 11:47 36.6 C 59 L 18 99/63 L 02/16/20 10:09 53 L 02/16/20 07:28 36.5 C 58 L 18 103/66 Pulse Ox 02/16/20 17:30 02/16/20 15:26 94 02/16/20 13:13 90 02/16/20 12:59 02/16/20 11:47 93 02/16/20 10:09 02/16/20 07:28 97
[2020-02-17] MEDS: METOPROLOL TARTRATE 25 MG TAB PO SCH ×5 (00:04→23:38)
[2020-02-17 06:48] LABS: Partial Thromboplastin Time 27.3 Seconds (21.0-31.0)
[2020-02-17 07:10] LABS: Calcium 9.3 mg/dl (8.5-10.1); Creatinine Clr Calc Pharmacy 41.3 ml/min; Est GFR (African American) 37.4; Est GFR (Non-African American) 32.3; Potassium 4.9 mmol/L (3.5-5.1)
[2020-02-17] MEDS: INSULIN ASPART 100 UNITS/ML 3 ML PEN SC SCH ×4 (08:08→21:06)
[2020-02-17] MEDS: BuPROPion SR 150 MG TABCR PO SCH ×2 (08:09→20:58)
[2020-02-17] MEDS: TAMSULOSIN HCL 0.4 MG CAP PO SCH (08:09)
[2020-02-17] MEDS: FUROSEMIDE 20 MG in SYRINGE 0 ML IV SCH (08:09)
[2020-02-17] MEDS ORDERED: SODIUM CHLORIDE 0.9% 1000ML 1,000 ML IV SCH (09:15)
--- NOTE | 2020-02-17 09:25 | Cardiology Progress Note ---
Date of Service February 17, 2020 Assessment & Plan (1) Severe aortic stenosis: (2) CKD (chronic kidney disease): (3) Tobacco abuse: (4) DM2 (diabetes mellitus, type 2): (5) Heart failure with acute decompensation, type unknown: The patient has critical aortic stenosis by echocardiography and heart failure on the basis of valvular heart disease. He needs to be further evaluated with a cardiac catheterization especially in light of the need for possible aortic valve replacement. I have explained the risk, benefit and intent to the cardiac catheterization to the patient. He accepts these risks including the potential of contrast-induced renal failure. I think the patient is hemodynamically stable and out of heart failure. I will hold his diuretics until he is reassessed after the heart catheterization. He will receive gentle IV hydration to limit contrast-induced nephropathy. We will have further recommendations following the heart catheterization. Admission and Anticipated Discharge Date Admission Date: February 12, 2020 Subjective The patient had an uneventful night. He is diuresed quite a bit and was able to sleep laying down last night without orthopnea. Review of Systems Review of Systems: All systems reviewed & are unremarkable except as noted in HPI & below Nothing additional to add. Physical Exam Physical Exam: General: no acute distress and stated age Head: normocephalic, no masses, lesions, tenderness or abnormalities Eyes: conjunctiva are pink and non-injected, sclera clear Neck: supple, no adenopathy, no bruits, normal jugular venous pulse, no hepatojugular reflux Chest: normal shape and normal respiratory effort Lungs: clear to auscultation and percussion Cardiac Exam: - regular rate & rhythm, systolic murmur left sternal border- normal S1, normal S2 Pulses: 2(+) throughout Abdomen: abdomen soft, non-tender, no abnormal masses and no hepatosplenomegaly Musculoskeletal: no gait disturbance, no joint inflammation, no deforming arthritis Extremities: no edema and no cyanosis Neuro: grossly normal exam Results & Data ([facility]) Vital Signs (Past 12 Hours) Vital Signs Temp Pulse Pulse Resp BP Pulse Ox 02/17/20 08:55 64 02/17/20 08:07 36.4 C L 71 20 111/75 94 02/17/20 04:23 36.7 C 63 16 93/57 L 96 02/17/20 00:00 63 02/16/20 23:49 36.3 C L 61 16 88/57 L 93 Laboratory Results Laboratory Results - last 24 hr 02/16/20 02/16/20 02/16/20 11:18 16:23 19:48 APTT PTT Ratio Sodium Potassium Chloride Carbon Dioxide Anion Gap BUN Creatinine Est Cr Clr Drug Dosing Est GFR ( Amer) Est GFR (Non-Af Amer) BUN/Creatinine Ratio Glucose POC Glucose 177 H 298 H 154 H Calcium 02/17/20 02/17/20 02/17/20 06:04 06:04 07:05 APTT 27.3 PTT Ratio 1.0 Sodium 140 Potassium 4.9 Chloride 102 Carbon Dioxide 34 H Anion Gap 4.0 BUN 52 H Creatinine 2.15 H Est Cr Clr Drug Dosing 41.3 Est GFR ( Amer) 37.4 Est GFR (Non-Af Amer) 32.3 BUN/Creatinine Ratio 24.0 H Glucose 124 H POC Glucose 159 H Calcium 9.3 Medications Administered Current Inpatient Medications Acetaminophen (Acetaminophen 325 Mg Tab) 650 mg PO Q4H PRN PRN Reason: Pain or Fever Stop: 03/13/20 15:05 Al Hydrox/Mg Hydrox/Simethicone (Aluminum/Magnesium Susp 30 Ml Udc) 15 ml PO Q4H PRN PRN Reason: Dyspepsia Stop: 03/13/20 15:05 Albuterol (Albut/Ipratrop 3mg/0.5mg Neb 3 Ml Vial) 3 ml NEB Q2H PRN PRN Reason: Wheezing Stop: 03/14/20 00:33 Last Admin: 02/16/20 13:11 Dose: 3 ml Documented by: Bupropion HCl (Bupropion Sr 150 Mg Tabcr) 150 mg PO BID ESTUARDO Stop: 03/13/20 20:59 Last Admin: 02/17/20 08:09 Dose: 150 mg Documented by: Dextrose (Dextrose 50% 50 Ml Syringe) 25 - 50 ml IV UD PRN; Protocol PRN Reason: Hypoglycemia Protocol Stop: 03/14/20 19:21 Glucagon (Glucagon For Inj 1 Mg Vial) 1 mg SQ UD PRN; Protocol PRN Reason: Hypoglycemia Protocol Stop: 03/14/20 19:21 Glucose (Glucose 10 Tabs/Tube) 4 - 8 tabs PO UD PRN; Protocol PRN Reason: Hypoglycemia Protocol Stop: 03/14/20 19:21 Glucose (Glucose 40% Gel 15 Gm Tube) 15 - 30 gm PO UD PRN; Protocol PRN Reason: Hypoglycemia Protocol Stop: 03/14/20 19:21 Heparin Sodium/Dextrose (Heparin Sodium/Dextrose) 25,000 units in 500 mls @ 30 mls/hr IV .[id number] [facility]; Protocol Stop: 03/13/20 17:44 Last Admin: 02/16/20 19:54 Dose: Not Given Documented by: Furosemide 20 mg/ Syringe 2 mls @ 4 mls/min IV [id number] ESTUARDO Stop: 03/16/20 19:24 Last Admin: 02/17/20 08:09 Dose: 4 mls/min Documented by: Sodium Chloride (Nss 1000ml) 1,000 mls @ 100 mls/hr IV .Q10H [facility] Stop: 03/18/20 09:14 Insulin Aspart (Insulin Aspart 100 Units/Ml 3 Ml Pen) 0 units SC ACHS ESTUARDO Stop: 03/14/20 20:59 Last Admin: 02/17/20 08:08 Dose: Not Given Documented by: Magnesium Hydroxide (Magnesium Hydroxide Susp 30 Ml Udc) 30 ml PO Q12H PRN PRN Reason: Constipation Stop: 03/13/20 15:05 Metoprolol Tartrate (Metoprolol Tartrate 25 Mg Tab) 12.5 mg PO Q6 ESTUARDO Stop: 03/13/20 17:59 Last Admin: 02/17/20 06:25 Dose: Not Given Documented by: Miscellaneous (Carbohydrates For Hypoglycemia ) 15 - 30 gm PO UD PRN PRN Reason: Hypoglycemia Protocol Stop: 03/14/20 19:21 Nitroglycerin (Nitroglycerin Sl 0.4 Mg/Tab Tab) 0.4 mg SL UD PRN PRN Reason: Chest Pain Stop: 03/13/20 15:05 Ondansetron HCl (Ondansetron Inj 2 Mg/Ml 2 Ml Vial) 4 mg IV Q6H PRN PRN Reason: Nausea Stop: 03/13/20 15:05 Polyethylene Glycol (Polyethylene (Miralax) 17 Gm Pack) 17 gm PO DAILY PRN PRN Reason: Constipation Stop: 03/13/20 15:05 Tamsulosin HCl (Tamsulosin Hcl 0.4 Mg Cap) 0.4 mg PO DAILY ESTUARDO Stop: 03/14/20 08:59 Last Admin: 02/17/20 08:09 Dose: 0.4 mg Documented by:
--- NOTE | 2020-02-17 10:29 | Nephrology Progress Note ---
Date of Service February 17, 2020 Assessment & Plan (1) FRANSISCO (acute kidney injury): Patient with acute kidney injury likely due to cardiorenal syndrome. Patient has severe aortic stenosis and low EF, preload dependent. Admission creatinine was 1.5. Patient likely has baseline CKD stage 3. He had a creatinine of 1.5 in December as well; peak creatinine 2.4 02/14. renal imaging shows atrophied L kidney and hypertrophied R >> evidence of remote event wtih bloodflow obstruction unilaterally -serum Creatinine improved with lowering the diuretic dose. -diuretics on hold for now adn getting saline in prep for cath -USS shows L-8.0. R- 11.2 with mild left renal atrophy -PCR-0.4, few red cells, repeat U/A on monday. -avoid hypotension and monitor renal function with daily BMP >will follow up in [place] CKD clinic w/ renal at d/c (2) Heart failure with acute decompensation, type unknown: Patient with systolic HF which responded well to Lasix.now for cardiac catheterization. Given severe aortic stenosis , needs gentle diuresis as he is preload dependent >diuretics on hold for cath >> percardiology for now (3) Severe aortic stenosis: Patient with severe aortic stenosis on echocardiogram and the preload dependent.Cardiology on board. Admission and Anticipated Discharge Date Admission Date: February 12, 2020 Subjective for cardiac cath; diuretics on hold Review of Systems Review of Systems: All systems reviewed & are unremarkable except as noted in HPI & below Cardiovascular: + dyspnea on exertion (better) and + edema (marekdly improved) Physical Exam Constitutional: well developed and well nourished; no acute distress (sittign on tonny of bed on RA) Eyes: EOM intact bilaterally ENMT: Ears: no external ear abnormality Nose: no external nose abnormality Mouth: + dry oral mucous membranes Neck: no nuchal rigidity Respiratory: normal respiratory effort Auscultation: + diminished lung sounds Cardiovascular: Rate/Rhythm: regular rate and regular rhythm Extremities: + edema (trace BLE) Gastrointestinal (Abdomen): Inspection/Auscultation: normal bowel sounds Percussion/Palpation: abdomen soft; abdomen nontender Musculoskeletal: Extremities: strength 5/5 throughout clubbing+ Skin: no rashes, warm and dry Neurologic: mann, fluent speech, no tremor Psychiatric: A+Ox3, euthymic affect Genitourinary: no johns Results & Data ([facility]) Vital Signs (Past 12 Hours) Vital Signs Temp Pulse Pulse Resp BP Pulse Ox 02/17/20 08:55 64 02/17/20 08:07 36.4 C L 71 20 111/75 94 02/17/20 04:23 36.7 C 63 16 93/57 L 96 02/17/20 00:00 63 02/16/20 23:49 36.3 C L 61 16 88/57 L 93 Laboratory Results 02/14/20 04:52 02/17/20 06:04
[2020-02-17] MEDS ORDERED: fentaNYL citrate 100 MCG/2 ML VIAL ONE (11:59)
[2020-02-17] MEDS ORDERED: MIDAZOLAM HCL 1 MG/ML 2ML VIAL ONE (12:00)
[2020-02-17 12:53] LABS: iSTAT Arterial Blood Gas HCO3 30 meg/L (19-24); iSTAT Arterial Blood Gas pCO2 50 mmHg (35-46); iSTAT Arterial Blood Gas pH 7.39 (7.35-7.45); iSTAT Arterial Blood Gas pO2 < 32 mmHg (80-95); iSTAT Carbon Dioxide 31 mmol/L (24-31); iSTAT Hematocrit 48 % (42-52); iSTAT Hemoglobin 16.3 g/dl (14.0-18.0); iSTAT Potassium 4.6 mmol/L (3.3-5.0); iSTAT Sodium 140 mmol/L (135-144)
--- NOTE | 2020-02-17 13:15 | Cardiac Catheterization ---
Date of Service February 17, 2020 Cardiac Cath Report Cardiac Cath Report Procedure: 1. Coronary angiography 2. Left heart catheterization 3. Right heart catheterization 4. Left ventriculogram 5. Aortogram History: This is a 59-year-old male patient who presented in heart failure and was found to have severe aortic stenosis Procedure summary: After informed consent was obtained the patient was brought to the cardiac catheterization lab where access was obtained utilizing a retrograde Salinger technique from the right femoral artery and vein. Preformed 5 Indonesian diagnostic catheters were utilized for the coronary angiograms. A 5 Indonesian pigtail catheter was utilized for the left ventriculogram and aortogram. A 7 Indonesian Heyburn-Daniel catheter was utilized for the right heart pressures and cardiac outputs. Following the procedure the arterial site was closed utilizing a minx device. The patient was then returned to his room in stable condition. ACC data: Start time 12:21 PM End time 1304 p.m. Opening aortic pressure 113/66 Closing aortic pressure 122/82 Left ventricular pressure 179/48 Sedation 1 mg intravenous Versed IV fluid 20 cc normal saline 178 cc Optiray Fluoroscopy time 12 minutes Radiation 1836 mGy DAP 188.53 cGy/m Right dominant system AUC score 9 Hemodynamic data: Cardiac output by thermal dilution is 3.63 L/min Mean gradient across the aortic valve is 50.89 mmHg Estimated aortic valve area 0.52 cm Right atrial pressure is a mean of 10 mmHg Right ventricular pressure is 64 over 4 mmHg PA pressure 62/30 mmHg Pulmonary capillary wedge pressure mean of 27 mmHg Coronary angiography: Injections into the left coronary artery reveal the left main trunk to be widely patent the left circumflex artery consists mainly of a large lateral marginal branch. The left circumflex artery has minor nonobstructive coronary artery disease the LAD extends all the way around the apex of the heart. The LAD gives off several diagonal branches. The LAD system has minor coronary artery disease. Selective injections of the right coronary artery reveals it to be dominant. The right coronary artery trifurcates into several posterior descending branches as well as the posterior lateral branch. The right coronary artery has minor coronary artery disease. Left ventriculogram: The left ventricle is slightly dilated. There is severe left ventricular dysfunction and an estimated left ventricular ejection fraction of around 20%. The mitral valve is competent. Aortogram: The aortic root and valve are heavily calcified. Aortic root and ascending aorta are normal morphology and diameter. Summary: The patient has severe aortic stenosis and patent coronary anatomy. LV function is severely reduced. Recommendations: The recommendations are for surgical evaluation regarding AVR.
--- NOTE | 2020-02-17 13:19 | Cardiology Progress Note ---
Date of Service February 17, 2020 Assessment & Plan (1) Severe aortic stenosis: (2) CKD (chronic kidney disease): (3) Tobacco abuse: (4) DM2 (diabetes mellitus, type 2): (5) Heart failure with acute decompensation, type unknown: Cardiac catheterization reveals no significant obstructive coronary artery disease. Continues to diurese well and is clinically improving. Still unable to uptitrate medications given relative hypotension and bradycardia. Would like to watch him overnight and follow renal function. Reassess his clinical status in the a.m. by ambulating in the metzger. Ideally, would like to be able to discharge to home and have patient seen in the valve clinic as an outpatient. Should he remain significantly dyspneic with minimal exertion then I will plan on reviewing the films and data with her colleagues at [facility] to discuss possible inpatient transfer. Appreciate nephrology input, will defer diuresis to their expertise. We will obtain carotid Dopplers in anticipation of possible valve replacement. Admission and Anticipated Discharge Date Admission Date: February 12, 2020 Subjective Patient seen and examined, chart reviewed. States he was able to lay a little flatter last evening. No shortness of breath with ambulating in the room. Denies chest pain, palpitations, lightheadedness, dizziness or syncope. Telemetry reviewed: Normal sinus rhythm without arrhythmia or significant ectopy. Review of Systems Review of Systems: All systems reviewed & are unremarkable except as noted in HPI & below Physical Exam Physical Exam: General: Awake, alert and oriented x 3. No acute distress. HEENT: Normocephalic, atraumatic. Pupils equal, round and reactive to light and accommodation. Extraocular muscles are intact. Anicteric sclera. Moist mucous membranes. Neck: No JVD. No bruit. Cardiovascular: Regular. Positive S-4. Normal S-1 and S-2. No S-3. 3/6 mid to late systolic ejection murmur, greatest at the right sternal border, second intercostal space with radiation to the bilateral carotids. No rubs. Pulmonary: Clear to auscultation bilaterally. No rales, rhonchi, or wheezing. Abdomen: Bowel sounds x 4, soft. No rebound, guarding or tenderness. No organomegaly. Extremities: No clubbing, cyanosis or edema. +2 pedal pulses bilaterally. Skin: Warm and dry. Results & Data ([facility]) Vital Signs (Past 12 Hours) Vital Signs Temp Pulse Pulse Resp BP Pulse Ox 02/17/20 11:38 36.7 C 65 18 106/77 94 02/17/20 08:55 64 02/17/20 08:07 36.4 C L 71 20 111/75 94 02/17/20 04:23 36.7 C 63 16 93/57 L 96
[2020-02-17] MEDS: HEPARIN SODIUM/DEXTROSE 25,000 UNITS/500 ML BAG IV SCH (15:00)
[2020-02-17] MEDS ORDERED: predniSONE 50 MG TAB PO ONE (15:00)
--- NOTE | 2020-02-17 19:43 | Hospitalist Progress Note ---
Date of Service February 17, 2020 Assessment & Plan (1) Acute CHF: Acute systolic CHF was sent from cardiology office for worsening SOB with exertion CXR on admission showed cardiomegaly with mild interstitial pulmonary edema. was starting on lasix 60mg IV BID Cardiology on board lasix was on hold due to bumped on creatinine ECHO showed severely reduced LV systolic function with apical dyskinesis and critical aortic stenosis.EF 15% S/P cardiac cath reveals no significant obstructive coronary artery disease. 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 Lasix drip discontinued Plan to repeat a limited echo to assess for the apical thrombus Tobacco abuse Counseling on smoking cessation (5) DVT prophylaxis: will start on Lasix q8h Code status Full code Admission and Anticipated Discharge Date Admission Date: February 12, 2020 Subjective Pt was seen and examined Lying in bed with no distress Pt said that he feels fine He said that his breathing stable Denies any chest pain, palpitation, dizziness and SOB Physical Exam Physical Exam: General- No acute distress Head- atraumatic Eyes- PERRL, EOMI, ENT- oropharynx clear Neck- supple, no JVD Lungs- clear to auscultation Heart- regular rhythm; +murmur Abdomen- normal bowel sounds, soft, nontender Extremities- no calf tenderness, +edema Neuro- alert, oriented x 3; PERRL, EOMI; no facial palsy; no dysarthria Skin- warm & dry Results & Data [facility] Vital Signs (Past 12 Hours) Vital Signs Temp Pulse Pulse Pulse Resp BP Pulse Ox 02/17/20 19:26 36.5 C 72 20 105/72 92 02/17/20 17:26 61 17 125/80 95 02/17/20 16:30 62 17 119/82 95 02/17/20 15:30 60 18 120/83 92 02/17/20 15:13 62 18 114/78 90 02/17/20 14:40 64 116/78 91 02/17/20 14:36 67 16 120/84 02/17/20 14:25 68 16 120/84 92 02/17/20 14:11 67 16 115/77 67 L 02/17/20 13:56 36.4 C L 70 17 117/81 90 02/17/20 13:35 69 20 111/79 93 02/17/20 13:20 70 20 106/80 94 02/17/20 11:38 36.7 C 65 18 106/77 94 02/17/20 08:55 64 02/17/20 08:07 36.4 C L 71 20 111/75 94
[2020-02-17] MEDS ORDERED: INSULIN GLARGINE SOLOSTAR 100 UNITS/ML 3 ML PEN SC STA (20:32)
[2020-02-18] MEDS: METOPROLOL TARTRATE 25 MG TAB PO SCH ×2 (06:10→11:49)
[2020-02-18 06:47] LABS: Partial Thromboplastin Time 27.5 Seconds (21.0-31.0)
[2020-02-18 07:05] LABS: BUN Creatinine Ratio 21.8 (10-20); Calcium 9.3 mg/dl (8.5-10.1); Creatinine Clr Calc Pharmacy 50.6 ml/min; Est GFR (African American) 48.3; Est GFR (Non-African American) 41.7; Potassium 4.9 mmol/L (3.5-5.1)
--- NOTE | 2020-02-18 07:23 | Ultrasound Report ---
BILATERAL CAROTID DOPPLER STUDY HISTORY: severe aortic stenosis COMPARISON: None. TECHNIQUE: Real-time, grayscale, and color Doppler sonography of the carotid arteries was performed. Imaging reviewed in the transverse and longitudinal planes. All measurements were calculated based on NASCET criteria. FINDINGS: Antegrade flow is seen in the bilateral vertebral arteries. The brachial pressures are hemodynamically similar. Mild calcified plaque within the bilateral carotid bifurcations. Delayed upstroke within the majority of the cervical arteries (parvus tardus) which can be seen in th e setting of aortic stenosis. The peak systolic velocity within the right ICA is 79 cm/s. The right systolic ratio is 1.1. The peak systolic velocity within the left ICA is 47 cm/s. The left systolic ratio is 0.6. IMPRESSION: No hemodynamically significant stenosis seen within the carotid arteries. Parvus tardus waveforms sug gesting aortic stenosis. ACT 112: Negative or not required by law. Electronically signed by: Chandu Ortiz M.D. 02/18/2020 7:21 AM
[2020-02-18] MEDS: INSULIN ASPART 100 UNITS/ML 3 ML PEN SC SCH ×2 (07:41→11:48)
[2020-02-18] MEDS: TAMSULOSIN HCL 0.4 MG CAP PO SCH (08:56)
[2020-02-18] MEDS: BuPROPion SR 150 MG TABCR PO SCH (08:56)
--- NOTE | 2020-02-18 09:24 | Nephrology Progress Note ---
Date of Service February 18, 2020 Assessment & Plan (1) FRANSISCO (acute kidney injury): Patient with acute kidney injury likely due to cardiorenal syndrome. Patient has severe aortic stenosis and low EF, preload dependent. Admission creatinine was 1.5. Patient likely has baseline CKD stage 3: He had a creatinine of 1.5 in December as well; peak creatinine 2.4 02/14, trending down now to 1.7 today. renal imaging shows atrophied L kidney and hypertrophied R >> evidence of remote event with bloodflow obstruction unilaterally -serum Creatinine improved with lowering the diuretic dose. -diuretics on hold for now and recommend cont to hold if clinically feasible until at least tomorrow AM -USS shows L-8.0. R- 11.2 with mild left renal atrophy -PCR-0.4, few red cells; can repeat UA as OP -care coordinated w/ Dr Moncada DISCHARGE RECOMMENDATIONS (d/c summary updated) -pls arrange follow up hospital discharge appointment with Dr Teresa Peoples nephrology in [place] in next 2 weeks -recommend lasix 20 mg twice daily by mouth at discharge to start on 02/19/20 or as per cardiology recommendations -recommend repeat bmp about a week after hospital discharge (2) Heart failure with acute decompensation, type unknown: Patient with systolic HF which responded well to Lasix. now for cardiac catheterization. Given severe aortic stenosis, needs gentle diuresis as he is preload dependent >diuretics on hold for cath >> per cardiology for now but recommend holding until tomorrow am, then start 20 mg po bid17 or as per cardiology recs (3) Severe aortic stenosis: Patient with severe aortic stenosis on echocardiogram and the preload dependent. Cardiology on board. Admission and Anticipated Discharge Date Admission Date: February 12, 2020 Subjective cath reportedly clean ; ambulating w/o signif sob; no edema or voinding concerns; states will no longer smoke after d/c Review of Systems Review of Systems: All systems reviewed & are unremarkable except as noted in HPI & below Physical Exam Constitutional: well developed and well nourished; no acute distress (sittign on tonny of bed on RA) Eyes: EOM intact bilaterally ENMT: Ears: no external ear abnormality Nose: no external nose abnormality Mouth: + dry oral mucous membranes Neck: no nuchal rigidity Respiratory: normal respiratory effort Auscultation: + diminished lung sounds Cardiovascular: Rate/Rhythm: regular rate and regular rhythm Heart Sounds: + murmur Extremities: no edema Gastrointestinal (Abdomen): Inspection/Auscultation: normal bowel sounds Percussion/Palpation: abdomen soft; abdomen nontender Musculoskeletal: Extremities: strength 5/5 throughout Skin: no rashes, warm and dry Neurologic: mann, fluent speech, no tremor Psychiatric: A+Ox3, euthymic affect Results & Data ([facility]) Vital Signs (Past 12 Hours) Vital Signs Temp Pulse Pulse Resp BP BP Pulse Ox 02/18/20 07:50 36.5 C 61 18 126/83 97 02/18/20 07:00 66 02/18/20 04:00 36.7 C 65 18 110/71 96 02/17/20 23:22 36.5 C 65 18 112/76 97 Laboratory Results 02/14/20 04:52 02/18/20 06:14
[2020-02-18 11:14] LABS: Appearance Urine Cloudy (Clear); Bacteria Urine Automated Negative (Negative); Bilirubin Urine Negative (Negative); Blood Urine 1+ (Negative); Cast Urine Automated 0 /lpf (0-5); Color Urine Yellow; Epithelial Cell Urine Auto 0-5 /lpf (0-5); Glucose Urine UA Negative (Negative); Ketones Urine Negative (Negative); Leukocyte Esterase Urine 3+ (Negative); Nitrite Urine Positive (Negative); Protein Urine 1+ (Negative); Specific Gravity Urine 1.026 (1.000-1.030); Urobilinogen Urine Negative (Negative); WBC Urine Automated >30 /hpf (0-5)
--- NOTE | 2020-02-18 12:36 | Cardiology Progress Note ---
Date of Service February 18, 2020 Assessment & Plan (1) Severe aortic stenosis: (2) CKD (chronic kidney disease): (3) Tobacco abuse: (4) DM2 (diabetes mellitus, type 2): (5) Heart failure with acute decompensation, type unknown: Nonischemic cardiomyopathy with severely reduced EF secondary to severe aortic stenosis. Cardiac cath without significant obstructive disease. The patient will ultimately require valve replacement. Clinically he is significantly improved and is able to ambulate without significant dyspnea. I believe the most prudent course of action at this point would be to discharge him home and my office will call to establish him with the valve clinic so that he may be seen by interventional cardiology as well as cardiothoracic surgery to determine whether SAVR or TAVR would be preferred. Will defer diuretic management to our nephrology colleagues. He is now diuresed over 6 L and renal function continues to improve. Admission and Anticipated Discharge Date Admission Date: February 12, 2020 Subjective Patient seen and examined, chart reviewed. His is also at the bedside and she reports that he walked the hallway last night without any shortness of breath whatsoever. He states he feels well overnight without any issues. His edema has resolved and his breathing is significantly improved as well. He continues to deny chest pain. Telemetry reviewed: Normal sinus rhythm without arrhythmia or significant ectopy. Review of Systems Review of Systems: All systems reviewed & are unremarkable except as noted in HPI & below Physical Exam Physical Exam: General: Awake, alert and oriented x 3. No acute distress. HEENT: Normocephalic, atraumatic. Pupils equal, round and reactive to light and accommodation. Extraocular muscles are intact. Anicteric sclera. Moist mucous membranes. Neck: No JVD. No bruit. Cardiovascular: Regular. Positive S-4. Normal S-1 and S-2. No S-3. 3/6 mid to late systolic ejection murmur, greatest at the right sternal border, second intercostal space with radiation to the bilateral carotids. No rubs. Pulmonary: Clear to auscultation bilaterally. No rales, rhonchi, or wheezing. Abdomen: Bowel sounds x 4, soft. No rebound, guarding or tenderness. No organomegaly. Extremities: No clubbing, cyanosis or edema. +2 pedal pulses bilaterally. Skin: Warm and dry. Results & Data ([facility]) Vital Signs (Past 12 Hours) Vital Signs Temp Pulse Pulse Resp BP BP Pulse Ox 02/18/20 07:50 36.5 C 61 18 126/83 97 02/18/20 07:00 66 02/18/20 04:00 36.7 C 65 18 110/71 96
--- NOTE | 2020-02-18 13:27 | Hospitalist Progress Note ---
Date of Service February 18, 2020 Assessment & Plan (1) Acute CHF: Acute systolic CHF was sent from cardiology office for worsening SOB with exertion CXR on admission showed cardiomegaly with mild interstitial pulmonary edema. was starting on lasix 60mg IV BID Cardiology on board lasix was on hold due to bumped on creatinine ECHO showed severely reduced LV systolic function with apical dyskinesis and critical aortic stenosis.EF 15% S/P cardiac cath reveals no significant obstructive coronary artery disease. severe aortic stenosis and patent coronary anatomy on cardiac cath Lasix was on hod due to contrast from cardiac cath Will need surgical evaluation regarding AVR by CT surgeon at [facility] Case discussed with nephrology that recommended lasix 20mg BID on discharge (2) CKD (chronic kidney disease): Acute kidney Failure Creatinine on admission 1.45, baseline unknown Creatinine worsening from 2.07 to 2.4-->2.2 --> 1.7 today Diuresis has been on hold Nephrology on board Recommended to discharge on Lasix 20mg BID to start on 02/19/20 Check BMP in 1 week Follow up with Dr Teresa Peoples nephrology in [place] in next 2 weeks (3) DM2 (diabetes mellitus, type 2): Newly dx Diabetes Recent Hba1c 7.4 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 Lasix drip discontinued Plan to repeat a limited echo to assess for the apical thrombus Tobacco abuse Counseling on smoking cessation (5) DVT prophylaxis: On Heparin subq Code status Full code Disposition Discharge home today Admission and Anticipated Discharge Date Admission Date: February 12, 2020 Subjective Pt was seen and examined Sitting in bed with no distress Pt said that he feels much better He said that he walked around with no distress He said that swelling and his breathing improve significantly Denies any chest pain, palpitation, dizziness and SOB Physical Exam Physical Exam: General- No acute distress Head- atraumatic Eyes- PERRL, EOMI, ENT- oropharynx clear Neck- supple, no JVD Lungs- clear to auscultation Heart- regular rhythm; +murmur Abdomen- normal bowel sounds, soft, nontender Extremities- no calf tenderness, edema improves Neuro- alert, oriented x 3; PERRL, EOMI; no facial palsy; no dysarthria Skin- warm & dry Results & Data Results & Data ([facility]) Vital Signs (Past 12 Hours) Vital Signs Temp Pulse Pulse Resp BP BP Pulse Ox 02/18/20 07:50 36.5 C 61 18 126/83 97 02/18/20 07:00 66 02/18/20 04:00 36.7 C 65 18 110/71 96
[2020-02-18] MEDS ORDERED: INSULIN GLARGINE SOLOSTAR 100 UNITS/ML 3 ML PEN SC SCH (21:00)
--- NOTE | 2020-02-19 23:45 | Discharge Summary ---
Date of Service February 18, 2020 Admission HPI Per Admitting Provider 59-year-old male without significant PMH due to lack of medical care over the past several years, was referred to the hospital as a direct admission by cardiology for evaluation and management of CHF. Patient recently reestablished with a PCP about 1 month ago after not being seen by medical provider since about 1994. Patient had reported progressive worsening shortness of breath and lower extremity edema over the past several months. Work-up demonstrated evidence of CHF and patient was referred to cardiology where he was seen in the clinic today. Patient reports progressive worsening of shortness of breath minimal exertion over the past several months and recent development of lower extremity edema and orthopnea over the past couple of weeks. Notes about a 12 pound weight gain. Patient was prescribed Lasix by PCP and reports small amount of improvement in lower extremity edema. Patient denies chest pain. No lightheadedness, dizziness, diaphoresis, syncopal events. Denies abdominal pain, nausea, vomiting, diarrhea. No other recent illnesses, fevers, chills. Denies urinary symptoms. EKG obtained on 01/15 showed evidence of anterior infarct. ProBNP on 02/02 14,460. EKG obtained in the office today demonstrated new T wave inversions in the inferior leads. At the time my exam, patient is resting in bed in no acute distress. Admission Exam Per Admitting Provider Constitutional: WD/WN, vitals as above Eyes: PERRL, conjunctivae normal, anicteric sclerae ENMT: external ear and nose normal, oropharynx normal Respiratory: normal respiratory effort; no respiratory distress Auscultation: + diminished lung sounds Cardiovascular: regular rate and regular rhythm Vessels: normal peripheral pulses Extremities: + edema (+2 pitting edema BLE) Gastrointestinal: normal bowel sounds, soft, nontender, no hepatosplenomegaly Musculoskeletal: no cyanosis or clubbing, extremities motor strength 5/5 Skin: no rashes, warm and dry Neurologic: PERRL, EOMI, accommodation nl, no face palsy, no dysarthria Psychiatric: A+Ox3, euthymic affect Principal Diagnosis Acute Congestive heart failure CKD (chronic kidney disease): Acute kidney Failure DM2 (diabetes mellitus, type 2): Elevated troponin: Abnormal UA Tobacco abuse Discharge Exam General- No acute distress Head- atraumatic Eyes- PERRL, EOMI, ENT- oropharynx clear Neck- supple, no JVD Lungs- clear to auscultation Heart- regular rhythm; +murmur Abdomen- normal bowel sounds, soft, nontender Extremities- no calf tenderness, edema improves Neuro- alert, oriented x 3; PERRL, EOMI; no facial palsy; no dysarthria Skin- warm & dry Discharge Data Allergies Allergy/AdvReac Type Severity Reaction Status Date / Time rabbit dander Allergy Watery Eye Verified 02/12/20 17:33 ragweed pollen Allergy Watery Eye Verified 02/12/20 17:33 IV Dye AdvReac Vomiting Uncoded 02/17/20 09:59 Consultations 02/12/20 15:06 Consult Cardiology Routine 02/13/20 17:06 Consult Nephrology Routine Procedures Performed Operation Date: 02/17/20 12:00 Actual Procedures s Cineradiography w/Routine Exam - Jimmy Whyte, p Cath, Right and Left Heart - Jimmy Whyte, Ordered Studies 02/14/20 16:03 US renal/blad retro comp Routine 02/17/20 11:44 CL Cath Imgs for PACS use only Stat 02/17/20 13:19 US carotid doppler BI Routine BILATERAL CAROTID DOPPLER STUDY HISTORY: severe aortic stenosis COMPARISON: None. TECHNIQUE: Real-time, grayscale, and color Doppler sonography of the carotid arteries was performed. Imaging reviewed in the transverse and longitudinal planes. All measurements were calculated based on NASCET criteria. FINDINGS: Antegrade flow is seen in the bilateral vertebral arteries. The brachial pressures are hemodynamically similar. Mild calcified plaque within the bilateral carotid bifurcations. Delayed upstroke within the majority of the cervical arteries (parvus tardus) which can be seen in the setting of aortic stenosis. The peak systolic velocity within the right ICA is 79 cm/s. The right systolic ratio is 1.1. The peak systolic velocity within the left ICA is 47 cm/s. The left systolic ratio is 0.6. IMPRESSION: No hemodynamically significant stenosis seen within the carotid arteries. Parvus tardus waveforms suggesting aortic stenosis. ACT 112: Negative or not required by law. Electronically signed by: Chandu Ortiz M.D. 02/18/2020 7:21 AM Dictated: 02/18/20712 Transcribed: 02/18/20712 XR chest 2V PA/lateral HISTORY: 59 years-old Male chf patient presents with acute shortness of breath and possible congestive heart failure COMPARISON: Chest radiograph 02/12/2020 TECHNIQUE: PA and lateral views of the chest FINDINGS: Cardiac silhouette is moderately enlarged. No pneumothorax, pleural effusion or airspace consolidation for pneumonia. There is decreased pulmonary vascular congestion. No overt pulmonary edema. Degenerative changes of the shoulders and spine. IMPRESSION: Cardiomegaly with decreased pulmonary vascular congestion. ACT 112: Negative or not required by law. The above report was generated using voice recognition software. It may contain grammatical, syntax or spelling errors. Electronically signed by: Arthur Simon M.D. 02/15/2020 10:55 AM Dictated: 02/15/201053 Transcribed: 02/15/201053 RENAL ULTRASOUND CLINICAL HISTORY: CKD, renal stones COMPARISON STUDY: None. TECHNIQUE: Sonography of the kidneys and the urinary bladder was performed. FINDINGS: Left kidney is partially obscured on this examination. The left kidney measures approximately 8 cm in length. There is moderate left renal atrophy. No hydronephrosis is present. The right kidney measures 11.2 cm in maximal dimension. No calculus or mass is identified although sensitivity is diminished on this exam. Both ureteral jets were identified. Mild bladder wall irregularity is noted. IMPRESSION: 1. No hydronephrosis. 2. Moderate left renal atrophy. 3. Mild bladder wall irregularity. ACT 112: Negative or not required by law. Electronically signed by: Moshe Jackson M.D. 02/14/2020 8:47 PM Dictated: 02/14/202044 Transcribed: 02/14/202044 Diabetes Follow up Diabetes Follow-up Needed for Newly Diagnosed Diabetes Hospital Course (1) Acute CHF: Acute systolic CHF was sent from cardiology office for worsening SOB with exertion CXR on admission showed cardiomegaly with mild interstitial pulmonary edema. was starting on lasix 60mg IV BID Cardiology on board lasix was on hold due to bumped on creatinine ECHO showed severely reduced LV systolic function with apical dyskinesis and critical aortic stenosis.EF 15% S/P cardiac cath reveals no significant obstructive coronary artery disease. severe aortic stenosis and patent coronary anatomy on cardiac cath Lasix was on hod due to contrast from cardiac cath Will need surgical evaluation regarding AVR by CT surgeon at [facility] Case discussed with nephrology that recommended lasix 20mg BID on discharge (2) CKD (chronic kidney disease): Acute kidney Failure Creatinine on admission 1.45, baseline unknown Creatinine worsening from 2.07 to 2.4-->2.2 --> 1.7 today Diuresis has been on hold Nephrology on board Recommended to discharge on Lasix 20mg BID to start on 02/19/20 Check BMP in 1 week Follow up with Dr Teresa Peoples nephrology in [place] in next 2 weeks (3) DM2 (diabetes mellitus, type 2): Newly dx Diabetes Recent Hba1c 7.4 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 Lasix drip discontinued Plan to repeat a limited echo to assess for the apical thrombus Tobacco abuse Counseling on smoking cessation (5) DVT prophylaxis: On Heparin subq Code status Full code Disposition Discharge home today Total Time Total Time Spent Total Time Spent (In Minutes): 35 minutes Total Time Includes: Examination of the Patient, Discharge Planning, Medication Reconciliation, Communication With Other Providers and Other Discharge Plan Discharge Items Patient Disposition: Home - Self-Care Reason For Visit: ACUTE CHF Discharge Diagnosis: Acute Congestive heart failure CKD (chronic kidney disease): Acute kidney Failure DM2 (diabetes mellitus, type 2): Elevated troponin: Abnormal UA Tobacco abuse Activity: Resume your previous activity Non-emergency contact: Primary Care Provider Call non-emergency contact if: you have any medication questions Follow-up/Referrals: Kurt Moore MD [Surgeon] - 03/18/20 2:40 pm (Date & Time 03/18/2020 2:40 PM Provider Kurt Moore MD Department Nephrology [address] [place] [address] ) Shaji Summers PA-C [Primary Care Provider] - 02/24/20 9:20 am (Date & Time 02/24/2020 9:20 AM Provider Shaji Summers PA-C Department [facility] ) Diet: Carb Consistent or DM2 and Heart Healthy Addtl Attending Provider Instructions: Follow up with your primary care provider Melina on 02/23 @ 9:20 AM Follow up with cardiology dr. Schneider (Office will call you to schedule for the appointment) cardiology will arrange for the referral to see the [facility] thoracic surgeon in [place] for the severe aortic stenosis Follow up with Nephrology Dr. Moore on 03/18 @ 2:40PM Check BMP in 1 week to monitor your renal function Continue monitor your blood sugar and bring your blood sugar log at your next appointment with your provider Follow up a health diabetes diet and limited concentrated sweet intake. Follow a low salt diet Check Hba1c in 3 to 6 months to monitor your diabetes Lasix increased to 20 mg twice daily by mouth (to start on 02/19/20) Please seek medical attention or call your provider if you develop any urinary symptoms or fever Counseling on smoking cessation Pending Studies at Discharge: No Stand-Alone Forms: My [facility], Smoking Cessation Medications and DC Order Prescriptions: New metoprolol tartrate 25 mg Tablet 12.5 mg PO Q6 30 Days Qty: 60 RF: 0 Continued tamsulosin [Flomax] 0.4 mg Capsule 0.4 mg PO DAILY RF: 0 albuterol sulfate 90 mcg/actuation Hfa Aerosol Inhaler 2 puff INHALATION QID PRN (Reason: Shortness Of Breath) RF: 0 bupropion HCl (smoking deter) 150 mg Tablet Extended Release 12 Hr 150 mg PO BID RF: 0 Changed furosemide [Lasix] 20 mg Tablet 20 mg PO BID 30 Days Qty: 60 RF: 0 Discharge Orders: Discharge Order (Routine); Ordered 02/18/20 Ordered By: Jose Humphrey/Other Patient Handouts: Managing Type 2 Diabetes, Diabetes: Meal Planning, A1C Admission Data Admit Date/Time: 02/12/20 15:48 Attending Provider: Jose Moncada Admit Provider: True Stern Primary Care Provider: Shaji Summers Other Providers: Guy Jimenez ; True Stern ; [place] Other Interventions: Discharge Summary Assessment (RN) Last Done: 02/18/20 14:13
== END 2020-02-18 14:34 | disposition home or self-care (01) | DRG 281 ==
LOC: 2S 15:48 → SUATTDRO 15:48 → 2S 02-14 12:42

== ENCOUNTER 2022-05-27 12:07 | Inpatient (IN) ==
--- NOTE | 2022-05-27 12:15 | Emergency Department Note ---
Impression & Plan Acute hypotension ADMIT ED Provider Note HPI: The patient is a 62-year-old gentleman with history of left MCA stroke status post mechanical thrombectomy at [facility] in March 2022, atrial fibrillation, peripheral artery disease, presents to the emergency department today with hypotension from [facility]. Patient reportedly had had some issues with hypotension in the 90s systolic over the past several days, over concern for possible cirrhosis and fluid overload he was not fluid resuscitated. Patient seemed less responsive today and remained hypotensive and therefore was sent to the ED for further assessment. On arrival here to the ED the patient is alert to verbal stimuli, he is able to answer simple questions without issue, per EMS his blood pressure was in the 90s systolic during transit. ROS: - Per HPI *Outpatient medications and allergy history reviewed. *Pertinent external medical records reviewed. PE: General: Listless appearing, alert to verbal stimuli HEENT: Normocephalic, trachea midline Eyes: Extraocular eye movement is intact, no scleral erythema Pulmonary: Clear to auscultation bilaterally, no wheezing Cardio: Regular rate and rhythm GI: Abdomen is soft, nontender : No suprapubic tenderness MSK: No evidence of trauma or malformation of the extremities, no edema Skin: No evidence of rash Neuro: Alert, no focal deficits Psychiatric: Cooperative ekg monitor: - An order was placed for continuous cardiac monitoring - Patient was noted to be in sinus rhythm with a rate of 95 EKG: (As interpreted by myself): Rate: 99 Rhythm: Sinus rhythm Intervals: Within normal limits ST changes: No ST elevation Time: 1217 Interventions provided in ED: -IV fluid bolus, IV albumin, IV vancomycin, IV cefepime Medical Decision Making: Patient presented to the emergency department with concern for hypotension from his nursing facility. Per report from the hospitalist at [facility], Dr. Solano, patient has had some decline in his condition over the past several days, he has had hypotension as well as fluid retention suspicious for possible underlying liver disease given his history of alcohol abuse. He was therefore sent to the ED today for further evaluation. On arrival here to the ED the patient is alert, he is chronically ill-appearing, he is listless appearing, he was placed on nasal cannula oxygen for hypoxia on room air at 81%, his oxygen saturations did improve with nasal cannula oxygen. Chest x-ray does not show any evidence of pneumonia, CT imaging of the abdomen pelvis unfortunately does show evidence of metastatic disease in the liver. This is apparently a new diagnosis for the patient. His lab work also shows evidence of a moderate transaminitis, no leukocytosis is noted but the patient's lactic acid is elevated at 5.4, blood cultures were ordered and patient was started on broad-spectrum antibiotics with vancomycin and cefepime. High-sensitivity troponin level is elevated at 66, patient was not complaining of any chest pain reportedly and did not complain of any chest pain on arrival here, EKG does not show any acute ischemic changes. We will trend this level upon admission. Low suspicion for ACS at this time. Patient's blood pressure was in the 70s initially on arrival, he was given a small bolus of normal saline and then eventually a bolus of albumin over concern for liver disease, he did respond well to the albumin infusion with improvement in his systolic blood pressures greater than 100. Patient was only given a 500 cc bolus of normal saline secondary to concern for ongoing liver disease and possible third spacing of any further IV fluid. He was therefore given an albumin infusion instead. On my reassessment patient's vital signs are stable, he continues to appear somewhat listless and chronically ill. He is alert to verbal stimuli and is able to answer my questions appropriately. I discussed all of the above findings with the patient's significant other who he has been with for over 30 years at the bedside. She was made aware that his condition at this time is fair however given his comorbidities and new finding of metastatic disease of the liver I feel he may benefit from inpatient admission for discussi on of possible treatment options but ultimately may require palliative care consult. She expressed an agreement and understanding. Case was discussed with the on-call midlevel provider for [facility], Delmis garcia, and the patient was admitted in stable condition for further care Disposition discussion held by myself with: Patient and significant other at the bedside * CRITICAL CARE TIME: ( 45 ) minutes -Stabilization of hypotension with systolic pressures in the 70s requiring albu min infusion for correction, time spent at the bedside, interpretation of diagnostic studies, discussion with other healthcare providers and arrangement of admission Diagnosis: 1. Hypotension, acute 2. Metastatic liver disease 3. Transaminitis 4. Peripheral edema 5. Elevated troponin 6. Lactic acidosis Disposition: Admission Myke De DO Emergency Medicine Past Med/Surg History Medical History (Updated 05/27/22 @ 17:21 by Myke De DO) BPH (benign prostatic hyperplasia) Surgical History No significant past surgical history Family History Mother Cancer Father Heart valve replaced Social History Smoking Status: Former smoker Cigarettes Per Day: 2; Hx Alcohol Use: Yes Alcohol type: beer Hx Substance Use: No Preferred Language: Mongolian Communication Ability: Effective Beliefs That Will Affect Care: None marital status: Single Current Living Situation: Other Feels Safe at Home: Yes Assistive Devices: None Allergies Allergies Allergy/AdvReac Type Severity Reaction Status Date / Time rabbit dander Allergy Mild Watery Eye Verified 05/27/22 15:34 ragweed pollen Allergy Mild Watery Eye Verified 05/27/22 15:34 Iodinated Contrast Media AdvReac Intermediate Vomiting Verified 05/27/22 15:34 Home Meds Home Medications Medication Instructions Recorded Confirmed tamsulosin 0.4 mg capsule (Flomax) 0.4 mg PO DAILY 02/12/20 05/27/22 acetaminophen 325 mg tablet 650 mg PO Q4H PRN Pain 05/27/22 05/27/22 (Tylenol) apixaban 5 mg tablet (Eliquis) 5 mg PO BID 05/27/22 05/27/22 atorvastatin 40 mg tablet 40 mg PO HS 05/27/22 05/27/22 bacitracin 500 unit/gram topical 1 applic topical BID 05/27/22 05/27/22 ointment bisacodyl 10 mg rectal suppository 10 mg [place] DAILY PRN Constipation 05/27/22 05/27/22 clotrimazole 1 % topical cream 1 applic topical BID 05/27/22 05/27/22 (Clotrimazole AF) empagliflozin 25 mg tablet 25 mg PO QAM 05/27/22 05/27/22 (Jardiance) folic acid 1 mg tablet 1 mg PO DAILY 05/27/22 05/27/22 furosemide 40 mg tablet (Lasix) 40 mg PO BID 05/27/22 05/27/22 insulin aspart U-100 100 unit/mL 10 unit subcut TIDM 05/27/22 05/27/22 subcutaneous solution insulin glargine 100 unit/mL 27 unit subcut HS 05/27/22 05/27/22 subcutaneous solution (Lantus U-100 Insulin) lactulose 10 gram/15 mL oral 10 g PO BID 05/27/22 05/27/22 solution magnesium hydroxide 400 mg/5 mL 30 ml PO DAILY PRN Constipation 05/27/22 05/27/22 oral suspension (Milk of Magnesia) melatonin 3 mg tablet 9 mg PO HS 05/27/22 05/27/22 metoprolol succinate 50 mg 50 mg PO DAILY 05/27/22 05/27/22 tablet,extended release 24 hr multivitamin with minerals 1 tab PO DAILY 05/27/22 05/27/22 ondansetron HCl 4 mg tablet 4 mg PO Q4H PRN NAUSEA/VOMITING 05/27/22 05/27/22 polyethylene glycol 3350 17 17 g PO QDL PRN Constipation 05/27/22 05/27/22 gram/dose oral powder (Miralax) potassium chloride 20 mEq 40 meq PO BID 05/27/22 05/27/22 tablet,extended release risperidone 0.25 mg tablet 0.25 mg PO Q8H 05/27/22 05/27/22 sacubitril 24 mg-valsartan 26 mg 1 tab PO Q12H 05/27/22 05/27/22 tablet (Entresto) sennosides 8.6 mg tablet (senna) 17.2 mg PO BID 05/27/22 05/27/22 sennosides 8.6 mg-docusate sodium 1 tab-cap PO QDL PRN Constipation 05/27/22 05/27/22 50 mg tablet (Senokot-S) thiamine HCl (vitamin B1) 100 mg 100 mg PO DAILY 05/27/22 05/27/22 tablet Results & Data (ED) Vital Signs Vital Signs - 24 hr 05/27/22 12:29 05/27/22 13:04 05/27/22 13:04 Temperature 36.5 C Temperature Source Oral Pulse Rate 95 H 98 H Pulse Rate from SpO2 Sensor 98 H Respiratory Rate 12 15 Blood Pressure 75/46 L Blood Pressure Mean 55 Pulse Oximetry 95 81 L 81 L Oxygen Delivery Method Nasal Cannula Nasal Cannula Room Air Oxygen Flow Rate 2 Sepsis New/Unexplained Change in Mental Status Yes Sepsis Action Taken by Nursing Physician Notified Oxygen Flow Rate - Titration 5 Pulse Oximetry Post Tiitration 99 05/27/22 13:11 05/27/22 13:11 05/27/22 13:13 Temperature Temperature Source Pulse Rate 114 H 107 H Pulse Rate from SpO2 Sensor 114 H 98 H Respiratory Rate 9 L 16 Blood Pressure 64/44 L Blood Pressure Mean 50 Pulse Oximetry 100 100 Oxygen Delivery Method Nasal Cannula Nasal Cannula Oxygen Flow Rate 5 5 Sepsis New/Unexplained Change in Mental Status Sepsis Action Taken by Nursing Oxygen Flow Rate - Titration Pulse Oximetry Post Tiitration 05/27/22 13:13 05/27/22 13:15 05/27/22 13:30 Temperature Temperature Source Pulse Rate 92 H Pulse Rate from SpO2 Sensor 91 H Respiratory Rate 12 Blood Pressure 80/55 L 75/55 L Blood Pressure Mean 63 61 Pulse Oximetry 100 Oxygen Delivery Method Oxygen Flow Rate Sepsis New/Unexplained Change in Mental Status Sepsis Action Taken by Nursing Oxygen Flow Rate - Titration Pulse Oximetry Post Tiitration 05/27/22 13:30 05/27/22 13:45 05/27/22 13:53 Temperature Temperature Source Pulse Rate 93 H 105 H 92 H Pulse Rate from SpO2 Sensor 92 H 104 H 92 H Respiratory Rate 11 L 8 L 9 L Blood Pressure Blood Pressure Mean Pulse Oximetry 100 100 100 Oxygen Delivery Method Nasal Cannula Nasal Cannula Oxygen Flow Rate 5 5 Sepsis New/Unexplained Change in Mental Status Sepsis Action Taken by Nursing Oxygen Flow Rate - Titration Pulse Oximetry Post Tiitration 05/27/22 13:53 05/27/22 14:00 05/27/22 14:00 Temperature Temperature Source Pulse Rate 93 H Pulse Rate from SpO2 Sensor 93 H Respiratory Rate 16 Blood Pressure 81/56 L 97/62 L Blood Pressure Mean 64 73 Pulse Oximetry 100 Oxygen Delivery Method Nasal Cannula Oxygen Flow Rate 5 Sepsis New/Unexplained Change in Mental Status Sepsis Action Taken by Nursing Oxygen Flow Rate - Titration Pulse Oximetry Post Tiitration 05/27/22 14:32 05/27/22 14:32 05/27/22 14:45 Temperature Temperature Source Pulse Rate 85 Pulse Rate from SpO2 Sensor 87 Respiratory Rate 12 Blood Pressure 111/74 104/71 Blood Pressure Mean 86 82 Pulse Oximetry 100 Oxygen Delivery Method Nasal Cannula Oxygen Flow Rate 4 Sepsis New/Unexplained Change in Mental Status Sepsis Action Taken by Nursing Oxygen Flow Rate - Titration Pulse Oximetry Post Tiitration 05/27/22 14:45 05/27/22 15:00 05/27/22 15:00 Temperature Temperature Source Pulse Rate 89 89 Pulse Rate from SpO2 Sensor 88 84 Respiratory Rate 10 L 8 L Blood Pressure 107/71 Blood Pressure Mean 83 Pulse Oximetry 100 99 Oxygen Delivery Method Nasal Cannula Nasal Cannula Oxygen Flow Rate 4 4 Sepsis New/Unexplained Change in Mental Status Sepsis Action Taken by Nursing Oxygen Flow Rate - Titration Pulse Oximetry Post Tiitration 05/27/22 15:15 05/27/22 15:15 Temperature Temperature Source Pulse Rate 87 Pulse Rate from SpO2 Sensor 87 Respiratory Rate 9 L Blood Pressure 110/69 Blood Pressure Mean 82 Pulse Oximetry 100 Oxygen Delivery Method Nasal Cannula Oxygen Flow Rate 4 Sepsis New/Unexplained Change in Mental Status Sepsis Action Taken by Nursing Oxygen Flow Rate - Titration Pulse Oximetry Post Tiitration Laboratory Data 05/27/22 13:14 05/27/22 13:14 Lab Results 05/27/22 05/27/22 05/27/22 Range/Units 13:14 13:14 13:14 WBC 6.91 (4.8-10.8) K/ul RBC 2.50 L (4.63-6.08) M/uL Hgb 8.2 L (14.0-18.0) g/dl Hct 25.5 L (40.1-51.0) % MCV 102.0 H (80.0-100.0) fL MCH 32.8 (25.0-34.0) pg MCHC 32.2 (32.0-36.0) g/dL RDW Std Deviation 57.9 H (36.4-46.3) fL RDW Coeff of Alpa 16.1 H (11.5-14.5) % Plt Count 51 L (130-400) K/uL MPV 13.4 H (9.4-12.4) fL Immature Gran % (Auto) 7.5 % Neut % (Auto) 71.1 % Lymph % (Auto) 17.5 % [place] % (Auto) 3.6 % Eos % (Auto) 0.0 % Baso % (Auto) 0.3 % Neut # (Auto) 4.91 (1.4-6.5) K/uL Lymph # (Auto) 1.21 (1.2-3.4) K/uL [place] # (Auto) 0.25 (0.24-0.82) K/uL Eos # (Auto) 0.00 (0-0.50) K/uL Baso # (Auto) 0.02 (0-0.2) K/uL Immature Gran # (Auto) 0.52 H (0.00-0.02) K/uL Absolute Nucleated RBC 0.33 H (0-0) K/uL Nucleated RBC % (auto) 4.8 % Polychromasia 1+ Anisocytosis Present PT 11.7 (9.0-12.0) Seconds INR 1.1 (0.9-1.1) APTT 22.0 (21.0-31.0) Seconds PTT Ratio 0.8 VBG pH (7.36-7.41) VBG pCO2 (38-50) mmHg VBG pO2 mmHg VBG HCO3 mmol/L VBG O2 Saturation % VBG Base Excess mEq/L Sodium 147 H (136-145) mmol/L Potassium 3.6 (3.5-5.1) mmol/L Chloride 104 (98-107) mmol/L Carbon Dioxide 32 (21-32) mmol/L Anion Gap 11 (3-11) BUN 25 H (6-23) mg/dl Creatinine 1.11 (0.6-1.4) mg/dl Est Cr Clr Drug Dosing Not Reportable Est GFR ( Amer) 81.5 ml/min Est GFR (Non-Af Amer) 70.3 ml/min BUN/Creatinine Ratio 22.5 H (10-20) Glucose 143 H (70-99(Fasting)) mg/dl Lactate (0.4-2.0) mmol/L Calcium 7.6 L (8.5-10.1) mg/dl Magnesium 2.0 (1.7-2.4) mg/dl Total Bilirubin 0.9 (0.2-1.0) mg/dl Direct Bilirubin 0.4 H (0-0.2) mg/dl AST 92 H (13-39) U/L ALT 184 H (7-52) U/L Alkaline Phosphatase 452 H (34-104) U/L Troponin I High Sens 66.4 H* (0-20) pg/ml Total Protein 5.3 L (6.0-8.3) gm/dl Albumin 3.0 L (3.4-5.0) gm/dl Procalcitonin (0-0.5) ng/ml SARS-CoV-2 (PCR) (Negative) Influenza Type A (PCR) (Neg) Influenza Type B (PCR) (Neg) RSV (RT-PCR) (Neg) 05/27/22 05/27/22 05/27/22 Range/Units 13:14 13:14 13:14 WBC (4.8-10.8) K/ul RBC (4.63-6.08) M/uL Hgb (14.0-18.0) g/dl Hct (40.1-51.0) % MCV (80.0-100.0) fL MCH (25.0-34.0) pg MCHC (32.0-36.0) g/dL RDW Std Deviation (36.4-46.3) fL RDW Coeff of Alpa (11.5-14.5) % Plt Count (130-400) K/uL MPV (9.4-12.4) fL Immature Gran % (Auto) % Neut % (Auto) % Lymph % (Auto) % [place] % (Auto) % Eos % (Auto) % Baso % (Auto) % Neut # (Auto) (1.4-6.5) K/uL Lymph # (Auto) (1.2-3.4) K/uL [place] # (Auto) (0.24-0.82) K/uL Eos # (Auto) (0-0.50) K/uL Baso # (Auto) (0-0.2) K/uL Immature Gran # (Auto) (0.00-0.02) K/uL Absolute Nucleated RBC (0-0) K/uL Nucleated RBC % (auto) % Polychromasia Anisocytosis PT (9.0-12.0) Seconds INR (0.9-1.1) APTT (21.0-31.0) Seconds PTT Ratio VBG pH 7.38 (7.36-7.41) VBG pCO2 59 H (38-50) mmHg VBG pO2 31 mmHg VBG HCO3 35 mmol/L VBG O2 Saturation < 60.0 % VBG Base Excess 7.7 mEq/L Sodium (136-145) mmol/L Potassium (3.5-5.1) mmol/L Chloride (98-107) mmol/L Carbon Dioxide (21-32) mmol/L Anion Gap (3-11) BUN (6-23) mg/dl Creatinine (0.6-1.4) mg/dl Est Cr Clr Drug Dosing Est GFR ( Amer) ml/min Est GFR (Non-Af Amer) ml/min BUN/Creatinine Ratio (10-20) Glucose (70-99(Fasting)) mg/dl Lactate 5.4 H* (0.4-2.0) mmol/L Calcium (8.5-10.1) mg/dl Magnesium (1.7-2.4) mg/dl Total Bilirubin (0.2-1.0) mg/dl Direct Bilirubin (0-0.2) mg/dl AST (13-39) U/L ALT (7-52) U/L Alkaline Phosphatase (34-104) U/L Troponin I High Sens (0-20) pg/ml Total Protein (6.0-8.3) gm/dl Albumin (3.4-5.0) gm/dl Procalcitonin 31.04 H (0-0.5) ng/ml SARS-CoV-2 (PCR) (Negative) Influenza Type A (PCR) (Neg) Influenza Type B (PCR) (Neg) RSV (RT-PCR) (Neg) 05/27/22 05/27/22 Range/Units 14:35 15:42 WBC (4.8-10.8) K/ul RBC (4.63-6.08) M/uL Hgb (14.0-18.0) g/dl Hct (40.1-51.0) % MCV (80.0-100.0) fL MCH (25.0-34.0) pg MCHC (32.0-36.0) g/dL RDW Std Deviation (36.4-46.3) fL RDW Coeff of Alpa (11.5-14.5) % Plt Count (130-400) K/uL MPV (9.4-12.4) fL Immature Gran % (Auto) % Neut % (Auto) % Lymph % (Auto) % [place] % (Auto) % Eos % (Auto) % Baso % (Auto) % Neut # (Auto) (1.4-6.5) K/uL Lymph # (Auto) (1.2-3.4) K/uL [place] # (Auto) (0.24-0.82) K/uL Eos # (Auto) (0-0.50) K/uL Baso # (Auto) (0-0.2) K/uL Immature Gran # (Auto) (0.00-0.02) K/uL Absolute Nucleated RBC (0-0) K/uL Nucleated RBC % (auto) % Polychromasia Anisocytosis PT (9.0-12.0) Seconds INR (0.9-1.1) APTT (21.0-31.0) Seconds PTT Ratio VBG pH (7.36-7.41) VBG pCO2 (38-50) mmHg VBG pO2 mmHg VBG HCO3 mmol/L VBG O2 Saturation % VBG Base Excess mEq/L Sodium (136-145) mmol/L Potassium (3.5-5.1) mmol/L Chloride (98-107) mmol/L Carbon Dioxide (21-32) mmol/L Anion Gap (3-11) BUN (6-23) mg/dl Creatinine (0.6-1.4) mg/dl Est Cr Clr Drug Dosing Est GFR ( Amer) ml/min Est GFR (Non-Af Amer) ml/min BUN/Creatinine Ratio (10-20) Glucose (70-99(Fasting)) mg/dl Lactate 3.4 H* (0.4-2.0) mmol/L Calcium (8.5-10.1) mg/dl Magnesium (1.7-2.4) mg/dl Total Bilirubin (0.2-1.0) mg/dl Direct Bilirubin (0-0.2) mg/dl AST (13-39) U/L ALT (7-52) U/L Alkaline Phosphatase (34-104) U/L Troponin I High Sens (0-20) pg/ml Total Protein (6.0-8.3) gm/dl Albumin (3.4-5.0) gm/dl Procalcitonin (0-0.5) ng/ml SARS-CoV-2 (PCR) NEGATIVE (Negative) Influenza Type A (PCR) Negative (Neg) Influenza Type B (PCR) Negative (Neg) RSV (RT-PCR) Negative (Neg) Administered Medications Discontinued Medications Albumin Human (Albumin 25% 100 Ml) 25 gm in 100 mls @ 50 mls/hr IV ONE ONE Stop: 05/27/22 14:17 Last Admin: 05/27/22 13:17 Dose: 50 mls/hr Documented By: LUCERO Vancomycin HCl 2,000 mg/ (Sodium Chloride) 540 mls @ 200 mls/hr IV NOW ONE Stop: 05/27/22 16:50 Last Admin: 05/27/22 15:07 Dose: 200 mls/hr Documented By: MICHAEL Cefepime HCl (Maxipime) 2,000 mg in 20 mls @ 5 mls/min IV NOW STA; Protocol Stop: 05/27/22 14:12 Last Admin: 05/27/22 14:44 Dose: 5 mls/min Documented By: MICHAEL Ioversol (Optiray 320 500ml) 120 ml IV ONCE ONE Stop: 05/27/22 14:21 Last Admin: 05/27/22 14:21 Dose: 120 ml Documented By: DEVENDRA Ondansetron HCl (Ondansetron Inj 2 Mg/Ml 2 Ml Vial) 4 mg IV NOW STA Stop: 05/27/22 13:59 Last Admin: 05/27/22 14:10 Dose: 4 mg Documented By: MICHAEL Imaging Data Radiologist's Impression: Chest X-Ray 05/27/22 12:15 XR chest 1V portable HISTORY: 62 years-old Male Sepsis acute sepsis COMPARISON: Chest radiographs 02/15/2020 TECHNIQUE: AP view of the chest FINDINGS: Cardiac silhouette is enlarged. Prior median sternotomy with cardiac valvular prosthesis. No pneumothorax, large pleural effusion or overt pulmonary edema. Mild subsegmental left basilar densities. Degenerative changes of the shoulders and spine. IMPRESSION: 1. Cardiomegaly without acute process. 2. Mild subsegmental left basilar opacities, likely representing atelectasis. A mild pneumonitis could appear similarly. ACT 112: Negative or not required by law. The above report was generated using voice recognition software. It may contain grammatical, syntax or spelling errors. Electronically signed by: Karthik Simon M.D. 05/27/2022 12:36 PM Abdomen/Pelvis CT 05/27/22 12:16 CT ANGIOGRAM OF THE CHEST; CT SCAN OF THE ABDOMEN AND PELVIS WITH IV CONTRAST CLINICAL HISTORY: Hypertension. Change in mental status. Lower extremity edema. Fall. COMPARISON STUDY: Chest x-ray dated 05/27/2022. Renal ultrasound dated 02/14/2020. TECHNIQUE: Following the IV administration of 120 of Optiray 320, CT angiogram of the chest is performed from the upper abdomen to the thoracic inlet utilizing the pulmonary embolus protocol. Images are reviewed in the axial, sagittal, coronal planes. 3-D MIPS images are created and assessed. Subsequently, CT scan of the abdomen and pelvis was performed from the lung bases to the proximal f emora. Images are reviewed in the axial, sagittal, and coronal planes. IV contrast was administered without complication. A dose lowering technique was utilized adhering to the principles of ALARA. The examinations are compromised by motion artifact, as well as by streak artifact from the arms which could not be elevated above the chest or abdomen. CT DOSE: 2328.51 mGy.cm FINDINGS: CHEST: Thyroid: Imaged portions of the thyroid gland are normal in size and attenuation. Thoracic aorta: There is advanced atherosclerotic calcification of the thoracic aorta, which is normal in caliber and demonstrates standard 3-vessel arch anatomy. No dissection is seen. Pulmonary vasculature: The pulmonary trunk is normal in caliber. There are no filling defects identified in the main, lobar, or segmental pulmonary arteries to indicate pulmonary embolus. Evaluation of the peripheral branches is compromised by motion artifact. Heart: The patient is status post midline sternotomy and aortic valve surgery. The heart is enlarged and without pericardial effusion. The coronary arteries are densely calcified. Lungs and pleural spaces: Evaluation of the lung parenchyma is significantly degraded by motion artifact. The trachea and central airways are clear. No airspace consolidation or pleural effusion is identified. Foci of scarring/atelectasis are seen in both lungs. Mediastinum: There are pathologically enlarged mediastinal lymph nodes. An AP window jag aggregate on image #169 measures 4.1 x 2.8 cm. An anterior mediastinal node on image #169 measures 2.2 x 1.3 cm. Makayla: An enlarged right hilar node on image #142 measures 2.5 x 1.4 cm. No right hilar adenopathy is identified. Axillae: There is no axillary lymphadenopathy. A lead in the right infra- axillary soft tissues on image #148 measures 1.9 x 1.1 cm. Bony thorax: No lytic or blastic lesions are identified. There are numerous healed left-sided rib fractures. Degenerative change is noted in the shoulders and thoracic spine. ABDOMEN AND PELVIS: Liver: The contrast-enhanced liver is enlarged, measuring 20.7 cm in length. The liver is diffusely infiltrated by metastatic disease. A employee representative right lobe lesion on image #107 measures 2.6 cm. There is no intrahepatic biliary ductal dilatation. The hepatic veins and portal veins are patent. Gallbladder: There are calcified gallstones without CT evidence of acute cholecystitis. Spleen: Normal in size and attenuation. Pancreas: Mildly atrophic and grossly unremarkable. Adrenal glands: The adrenal glands are markedly thickened and hyperemic. The right adrenal gland measures up to 1.7 cm in thickness and the right adrenal gland measures up to 1.9 cm. Kidneys: There is asymmetric cortical atrophy of the left kidney as compared to the right. No hydronephrosis is seen. The right kidney enhances normally. Enhancement of the left kidney is slightly diminished. Abdominal vasculature: There is advanced atherosclerotic calcification and mild ectasia of the abdominal aorta. Stomach and bowel: There is a tiny hiatal hernia. The small bowel loops are normal in caliber. There is significant gaseous distention of the colon with air-fluid levels identified. The right colon measures up to 9 cm in diameter. No transition point or obstructing lesion is identified. The appendix is well- visualized and normal. Peritoneum/retroperitoneum: No intraperitoneal free air is seen. There is trace free fluid in the left lower quadrant. There are intraperitoneal and retroperitoneal implants. A left retroperitoneal implant posterior to left kidney on image #205 measures 1.4 cm. An implant along the anterior transverse colon on image #269 measures 2.2 cm. An implant anterior to the left adrenal gland on image #169 measures 1.7 cm. Lymphadenopathy: A prominent left retroperitoneal node on image #153 measures 8 mm in short axis. Pelvic viscera: The prostate gland is mildly enlarged and heterogeneous. The bladder is distended, and the wall is thickened/trabeculated indicating chronic outlet obstruction. Skeletal structures: There is mild to moderate lumbosacral spondylosis. No lytic or blastic lesions are seen. Soft tissues: Soft tissue contusion is suggested in the right flank on image #193. IMPRESSION: 1. Streak and motion compromised examinations. 2. There is no evidence of pulmonary embolus in the main, lobar, or segmental pulmonary arteries. 3. There is no airspace consolidation or pleural effusion. 4. Cardiomegaly. 5. There is evidence of extensive/diffuse metastatic disease. 6. The liver is enlarged and diffusely infiltrated by metastatic disease. 7. There are pathologically enlarged mediastinal and left hilar lymph nodes. 8. A metastatic soft tissue implant is seen in the right infra-axillary tissues. 9. Metastatic implants are seen in the peritoneum and retroperitoneum. 10. The adrenal glands are markedly thickened, likely representing adrenal metastases. 11. The colon is significantly distended and gas-filled with scattered air-fluid levels. No transitional point or obstructing lesion is seen and this could represent colonic ileus. Correlate clinically for evidence of a nonspecific colitis/diarrheal illness. 12. Cholelithiasis. 13. Soft tissue contusion is suggested in the right flank. 14. Additional findings as above. ACT 112: Positive. There are findings on this exam that require communication between the performing entity and the patient following Patient Test Result Information Act ([place] Act 112) guidelines. Electronically signed by: Kobi Nguyen M.D. 05/27/2022 3:01 PM Chest CTA 05/27/22 12:16 CT ANGIOGRAM OF THE CHEST; CT SCAN OF THE ABDOMEN AND PELVIS WITH IV CONTRAST CLINICAL HISTORY: Hypertension. Change in mental status. Lower extremity edema. Fall. COMPARISON STUDY: Chest x-ray dated 05/27/2022. Renal ultrasound dated 02/14/2020. TECHNIQUE: Following the IV administration of 120 of Optiray 320, CT angiogram of the chest is performed from the upper abdomen to the thoracic inlet utilizing the pulmonary embolus protocol. Images are reviewed in the axial, sagittal, coronal planes. 3-D MIPS images are created and assessed. Subsequently, CT scan of the abdomen and pelvis was performed from the lung bases to the proximal femora. Images are reviewed in the axial, sagittal, and coronal planes. IV contrast was administered without complication. A dose lowering technique was utilized adhering to the principles of ALARA. The examinations are compromised by motion artifact, as well as by streak artifact from the arms which could not be elevated above the chest or abdomen. CT DOSE: 2328.51 mGy.cm FINDINGS: CHEST: Thyroid: Imaged portions of the thyroid gland are normal in size and attenuation. Thoracic aorta: There is advanced atherosclerotic calcification of the thoracic aorta, which is normal in caliber and demonstrates standard 3-vessel arch anatomy. No dissection is seen. Pulmonary vasculature: The pulmonary trunk is normal in caliber. There are no filling defects identified in the main, lobar, or segmental pulmonary arteries to indicate pulmonary embolus. Evaluation of the peripheral branches is compromised by motion artifact. Heart: The patient is status post midline sternotomy and aortic valve surgery. The heart is enlarged and without pericardial effusion. The coronary arteries are densely calcified. Lungs and pleural spaces: Evaluation of the lung parenchyma is significantly degraded by motion artifact. The trachea and central airways are clear. No airs pace consolidation or pleural effusion is identified. Foci of scarring/atelectasis are seen in both lungs. Mediastinum: There are pathologically enlarged mediastinal lymph nodes. An AP window jag aggregate on image #169 measures 4.1 x 2.8 cm. An anterior mediastinal node on image #169 measures 2.2 x 1.3 cm. Makayla: An enlarged right hilar node on image #142 measures 2.5 x 1.4 cm. No right hilar adenopathy is identified. Axillae: There is no axillary lymphadenopathy. A lead in the right infra- axillary soft tissues on image #148 measures 1.9 x 1.1 cm. Bony thorax: No lytic or blastic lesions are identified. There are numerous healed left-sided rib fractures. Degenerative change is noted in the shoulders and thoracic spine. ABDOMEN AND PELVIS: Liver: The contrast-enhanced liver is enlarged, measuring 20.7 cm in length. The liver is diffusely infiltrated by metastatic disease. A employee representative right lobe lesion on image #107 measures 2.6 cm. There is no intrahepatic biliary ductal dilatation. The hepatic veins and portal veins are patent. Gallbladder: There are calcified gallstones without CT evidence of acute cholecystitis. Spleen: Normal in size and attenuation. Pancreas: Mildly atrophic and grossly unremarkable. Adrenal glands: The adrenal glands are markedly thickened and hyperemic. The right adrenal gland measures up to 1.7 cm in thickness and the right adrenal gland measures up to 1.9 cm. Kidneys: There is asymmetric cortical atrophy of the left kidney as compared to the right. No hydronephrosis is seen. The right kidney enhances normally. Enhancement of the left kidney is slightly diminished. Abdominal vasculature: There is advanced atherosclerotic calcification and mild ectasia of the abdominal aorta. Stomach and bowel: There is a tiny hiatal hernia. The small bowel loops are normal in caliber. There is significant gaseous distention of the colon with air-fluid levels identified. The right colon measures up to 9 cm in diameter. No transition point or obstructing lesion is identified. The appendix is well-vis ualized and normal. Peritoneum/retroperitoneum: No intraperitoneal free air is seen. There is trace free fluid in the left lower quadrant. There are intraperitoneal and retro peritoneal implants. A left retroperitoneal implant posterior to left kidney on image #205 measures 1.4 cm. An implant along the anterior transverse colon on image #269 measures 2.2 cm. An implant anterior to the left adrenal gland on image #169 measures 1.7 cm. Lymphadenopathy: A prominent left retroperitoneal node on image #153 measures 8 mm in short axis. Pelvic viscera: The prostate gland is mildly enlarged and heterogeneous. The bladder is distended, and the wall is thickened/trabeculated indicating chronic outlet obstruction. Skeletal structures: There is mild to moderate lumbosacral spondylosis. No lytic or blastic lesions are seen. Soft tissues: Soft tissue contusion is suggested in the right flank on image #193. IMPRESSION: 1. Streak and motion compromised examinations. 2. There is no evidence of pulmonary embolus in the main, lobar, or segmental pulmonary arteries. 3. There is no airspace consolidation or pleural effusion. 4. Cardiomegaly. 5. There is evidence of extensive/diffuse metastatic disease. 6. The liver is enlarged and diffusely infiltrated by metastatic disease. 7. There are pathologically enlarged mediastinal and left hilar lymph nodes. 8. A metastatic soft tissue implant is seen in the right infra-axillary tissues. 9. Metastatic implants are seen in the peritoneum and retroperitoneum. 10. The adrenal glands are markedly thickened, likely representing adrenal metastases. 11. The colon is significantly distended and gas-filled with scattered air-fluid levels. No transitional point or obstructing lesion is seen and this could represent colonic ileus. Correlate clinically for evidence of a nonspecific colitis/diarrheal illness. 12. Cholelithiasis. 13. Soft tissue contusion is suggested in the right flank. 14. Additional findings as above. ACT 112: Positive. There are findings on this exam that require communication between the performing entity and the patient following Patient Test Result Information Act ([place] Act 112) guidelines. Electronically signed by: Kobi Nguyen M.D. 05/27/2022 3:01 PM Discharge Plan Visit Data Chief Complaint: Hypotension Stated Complaint: HYPOTENSION ED Provider: Myke De Discharge Problem: Acute hypotension Forms Stand Alone Forms: My [facility] Prescriptions Prescriptions: No Action tamsulosin [Flomax] 0.4 mg Capsule 0.4 mg PO DAILY furosemide [Lasix] 40 mg Tablet 40 mg PO BID Rx Instructions: TAKES AT 0900 & 1600. atorvastatin 40 mg Tablet 40 mg PO HS sennosides [senna] 8.6 mg Tablet 17.2 mg PO BID acetaminophen [Tylenol] 325 mg Tablet 650 mg PO Q4H PRN (Reason: Pain) insulin glargine [Lantus U-100 Insulin] 100 unit/mL Solution 27 unit SUBCUT HS metoprolol succinate 50 mg Tablet Extended Release 24 Hr 50 mg PO DAILY ondansetron HCl [Zofran] 4 mg Tablet 4 mg PO Q4H PRN (Reason: NAUSEA/VOMITING) sennosides-docusate sodium [Senokot-S] 8.6-50 mg Tablet 1 tab-cap PO QDL PRN (Reason: Constipation) thiamine HCl (vitamin B1) 100 mg Tablet 100 mg PO DAILY bacitracin 500 unit/gram Ointment 1 applic TOPICAL BID Rx Instructions: APPLY TO NOSE. risperidone 0.25 mg Tablet 0.25 mg PO Q8H magnesium hydroxide [Milk of Magnesia] 400 mg/5 mL Suspension 30 ml PO DAILY PRN (Reason: Constipation) insulin aspart U-100 100 unit/mL Solution 10 unit SUBCUT TIDM bisacodyl 10 mg Suppository 10 mg [place] DAILY PRN (Reason: Constipation) folic acid 1 mg Tablet 1 mg PO DAILY multivitamin with minerals Tablet 1 tab PO DAILY polyethylene glycol 3350 [Miralax] 17 gram/dose Powder 17 g PO QDL PRN (Reason: Constipation) clotrimazole [Clotrimazole AF] 1 % Cream 1 applic TOPICAL BID lactulose 10 gram/15 mL Solution 10 g PO BID Eliquis 5 mg Tablet 5 mg PO BID potassium chloride 20 mEq Tablet Extended Release 40 meq PO BID Jardiance 25 mg Tablet 25 mg PO QAM Entresto 24-26 mg Tablet 1 tab PO Q12H melatonin 3 mg Tablet 9 mg PO HS Referrals Referrals: Shaji Summers, ROSIE [Outside Practitioners] -
[2022-05-27] MEDS ORDERED: ALBUMIN 25% 100 mL 25 GM/100 ML VIAL IV ONE (12:18)
--- NOTE | 2022-05-27 12:37 | XRay Report ---
XR chest 1V portable HISTORY: 62 years-old Male Sepsis acute sepsis COMPARISON: Chest radiographs 02/15/2020 TECHNIQUE: AP view of the chest FINDINGS: Cardiac silhouette is enlarged. Prior median sternotomy with cardiac valvular prosthesis. No pneumoth orax, large pleural effusion or overt pulmonary edema. Mild subsegmental left basilar densities. Dege nerative changes of the shoulders and spine. IMPRESSION: 1. Cardiomegaly without acute process. 2. Mild subsegmental left basilar opacities, likely representing atelectasis. A mild pneumonitis coul d appear similarly. ACT 112: Negative or not required by law. The above report was generated using voice recognition software. It may contain grammatical, syntax o r spelling errors. Electronically signed by: Karthik Simon M.D. 05/27/2022 12:36 PM
[2022-05-27 13:33] LABS: Base Excess VBG 7.7 mEq/L; HCO3 VBG 35 mmol/L; Oxygen Saturation VBG < 60.0 %; PCO2 VBG 59 mmHg (38-50); PO2 VBG 31 mmHg; pH VBG 7.38 (7.36-7.41)
[2022-05-27 13:43] LABS: INR 1.1 (0.9-1.1); Partial Thromboplastin Ratio 0.8; Prothrombin Time 11.7 Seconds (9.0-12.0)
[2022-05-27 13:54] LABS: Anisocytosis Present; Basophils # (auto) 0.02 K/uL (0-0.2); Basophils % (auto) 0.3 %; Hematocrit (blood only) 25.5 % (40.1-51.0); Hemoglobin 8.2 g/dl (14.0-18.0); Immature Granulocytes # (auto) 0.52 K/uL (0.00-0.02); Immature Granulocytes % (auto) 7.5 %; Lymphocytes # (auto) 1.21 K/uL (1.2-3.4); Lymphocytes % (auto) 17.5 %; Mean Corpuscular Hemoglobin 32.8 pg (25.0-34.0); Mean Corpuscular Hgb Conc 32.2 g/dL (32.0-36.0); Mean Platelet Volume 13.4 fL (9.4-12.4); Monocytes # (auto) 0.25 K/uL (0.24-0.82); Monocytes % (auto) 3.6 %; Neutrophils # (auto) 4.91 K/uL (1.4-6.5); Neutrophils % (auto) 71.1 %; Nucleated RBC # (auto) 0.33 K/uL (0-0); Nucleated RBC % (auto) 4.8 %; Platelet Count 51 K/uL (130-400); Polychromasia 1+; RDW Coefficient of Variation 16.1 % (11.5-14.5); RDW Standard Deviation 57.9 fL (36.4-46.3); White Blood Count 6.91 K/ul (4.8-10.8)
[2022-05-27 13:57] LABS: Alanine Aminotransferase 184 U/L (7-52); Alkaline Phosphatase 452 U/L (34-104); Anion Gap 11 (3-11); Aspartate Aminotransferase 92 U/L (13-39); BUN Creatinine Ratio 22.5 (10-20); Bilirubin Direct 0.4 mg/dl (0-0.2); Bilirubin,Total 0.9 mg/dl (0.2-1.0); Blood Urea Nitrogen 25 mg/dl (6-23); Calcium 7.6 mg/dl (8.5-10.1); Carbon Dioxide 32 mmol/L (21-32); Chloride 104 mmol/L (98-107); Est GFR (African American) 81.5 ml/min; Est GFR (Non-African American) 70.3 ml/min; Glucose 143 mg/dl (70-99(Fasting)); Potassium 3.6 mmol/L (3.5-5.1); Sodium 147 mmol/L (136-145); Total Protein 5.3 gm/dl (6.0-8.3)
[2022-05-27] MEDS ORDERED: ONDANSETRON INJ 2 MG/ML 2 ML VIAL IV STA (13:58)
[2022-05-27] MEDS ORDERED: CEFEPIME 2,000 MG/20 ML VIAL IV STA (14:09)
[2022-05-27] MEDS ORDERED: VANCOMYCIN HCL 2,000 MG in SODIUM CHLORIDE 0.9% 500 ML IV ONE (14:09)
[2022-05-27] MEDS ORDERED: VANCOMYCIN CONSULT ACTIVE PRN (14:09)
[2022-05-27 14:10] LABS: Troponin I High Sensitivity 66.4 pg/ml (0-20)
[2022-05-27] MEDS ORDERED: OPTIRAY 320 500ml IV ONE ×2 (14:20→19:17)
--- NOTE | 2022-05-27 15:04 | CT Scan Report ---
CT ANGIOGRAM OF THE CHEST; CT SCAN OF THE ABDOMEN AND PELVIS WITH IV CONTRAST CLINICAL HISTORY: Hypertension. Change in mental status. Lower extremity edema. Fall. COMPARISON STUDY: Chest x-ray dated 05/27/2022. Renal ultrasound dated 02/14/2020. TECHNIQUE: Following the IV administration of 120 of Optiray 320, CT angiogram of the chest is perfor med from the upper abdomen to the thoracic inlet utilizing the pulmonary embolus protocol. Images are reviewed in the axial, sagittal, coronal planes. 3-D MIPS images are created and assessed. Subsequen tly, CT scan of the abdomen and pelvis was performed from the lung bases to the proximal femora. Imag es are reviewed in the axial, sagittal, and coronal planes. IV contrast was administered without comp lication. A dose lowering technique was utilized adhering to the principles of ALARA. The examination s are compromised by motion artifact, as well as by streak artifact from the arms which could not be elevated above the chest or abdomen. CT DOSE: 2328.51 mGy.cm FINDINGS: CHEST: Thyroid: Imaged portions of the thyroid gland are normal in size and attenuation. Thoracic aorta: There is advanced atherosclerotic calcification of the thoracic aorta, which is rey l in caliber and demonstrates standard 3-vessel arch anatomy. No dissection is seen. Pulmonary vasculature: The pulmonary trunk is normal in caliber. There are no filling defects identif ied in the main, lobar, or segmental pulmonary arteries to indicate pulmonary embolus. Evaluation of the peripheral branches is compromised by motion artifact. Heart: The patient is status post midline sternotomy and aortic valve surgery. The heart is enlarged and without pericardial effusion. The coronary arteries are densely calcified. Lungs and pleural spaces: Evaluation of the lung parenchyma is significantly degraded by motion artif act. The trachea and central airways are clear. No airspace consolidation or pleural effusion is iden tified. Foci of scarring/atelectasis are seen in both lungs. Mediastinum: There are pathologically enlarged mediastinal lymph nodes. An AP window jag aggregate on image #169 measures 4.1 x 2.8 cm. An anterior mediastinal node on image #169 measures 2.2 x 1.3 cm . Makayla: An enlarged right hilar node on image #142 measures 2.5 x 1.4 cm. No right hilar adenopathy is identified. Axillae: There is no axillary lymphadenopathy. A lead in the right infra-axillary soft tissues on jory ge #148 measures 1.9 x 1.1 cm. Bony thorax: No lytic or blastic lesions are identified. There are numerous healed left-sided rib fra ctures. Degenerative change is noted in the shoulders and thoracic spine. ABDOMEN AND PELVIS: Liver: The contrast-enhanced liver is enlarged, measuring 20.7 cm in length. The liver is diffusely i nfiltrated by metastatic disease. A community health representative right lobe lesion on image #107 measures 2.6 cm. T here is no intrahepatic biliary ductal dilatation. The hepatic veins and portal veins are patent. Gallbladder: There are calcified gallstones without CT evidence of acute cholecystitis. Spleen: Normal in size and attenuation. Pancreas: Mildly atrophic and grossly unremarkable. Adrenal glands: The adrenal glands are markedly thickened and hyperemic. The right adrenal gland sugey ures up to 1.7 cm in thickness and the right adrenal gland measures up to 1.9 cm. Kidneys: There is asymmetric cortical atrophy of the left kidney as compared to the right. No hydrone phrosis is seen. The right kidney enhances normally. Enhancement of the left kidney is slightly dimin ished. Abdominal vasculature: There is advanced atherosclerotic calcification and mild ectasia of the abdomi nal aorta. Stomach and bowel: There is a tiny hiatal hernia. The small bowel loops are normal in caliber. There is significant gaseous distention of the colon with air-fluid levels identified. The right colon sugey ures up to 9 cm in diameter. No transition point or obstructing lesion is identified. The appendix is well-visualized and normal. Peritoneum/retroperitoneum: No intraperitoneal free air is seen. There is trace free fluid in the lef t lower quadrant. There are intraperitoneal and retroperitoneal implants. A left retroperitoneal impl ant posterior to left kidney on image #205 measures 1.4 cm. An implant along the anterior transverse colon on image #269 measures 2.2 cm. An implant anterior to the left adrenal gland on image #169 sugey ures 1.7 cm. Lymphadenopathy: A prominent left retroperitoneal node on image #153 measures 8 mm in short axis. Pelvic viscera: The prostate gland is mildly enlarged and heterogeneous. The bladder is distended, an d the wall is thickened/trabeculated indicating chronic outlet obstruction. Skeletal structures: There is mild to moderate lumbosacral spondylosis. No lytic or blastic lesions a re seen. Soft tissues: Soft tissue contusion is suggested in the right flank on image #193. IMPRESSION: 1. Streak and motion compromised examinations. 2. There is no evidence of pulmonary embolus in the main, lobar, or segmental pulmonary arteries. 3. There is no airspace consolidation or pleural effusion. 4. Cardiomegaly. 5. There is evidence of extensive/diffuse metastatic disease. 6. The liver is enlarged and diffusely infiltrated by metastatic disease. 7. There are pathologically enlarged mediastinal and left hilar lymph nodes. 8. A metastatic soft tissue implant is seen in the right infra-axillary tissues. 9. Metastatic implants are seen in the peritoneum and retroperitoneum. 10. The adrenal glands are markedly thickened, likely representing adrenal metastases. 11. The colon is significantly distended and gas-filled with scattered air-fluid levels. No transitio nal point or obstructing lesion is seen and this could represent colonic ileus. Correlate clinically for evidence of a nonspecific colitis/diarrheal illness. 12. Cholelithiasis. 13. Soft tissue contusion is suggested in the right flank. 14. Additional findings as above. ACT 112: Positive. There are findings on this exam that require communication between the performing entity and the patient following Patient Test Result Information Act ([place] Act 112) guidelines. Electronically signed by: Kobi Nguyen M.D. 05/27/2022 3:01 PM
[2022-05-27 15:27] LABS: Influenza A virus by PCR Negative (Neg); Influenza B virus by PCR Negative (Neg); RSV by PCR Negative (Neg); SARS CoV2 RNA(COVID-19) Ceph NEGATIVE (Negative)
--- NOTE | 2022-05-27 16:10 | Electrocardiogram Report ---
Test Reason : Blood Pressure : / mmHG Vent. Rate : 099 BPM Atrial Rate : 099 BPM P-R Int : 148 ms QRS Dur : 080 ms QT Int : 346 ms P-R-T Axes : 054 039 237 degrees QTc Int : 444 ms Sinus rhythm with Premature atrial complexes Possible Left atrial enlargement Low voltage QRS Abnormal ECG When compared with ECG of 14-FEB-2020 08:38, Significant changes have occurred Confirmed by Zack Hoffman ([id number]) on 05/27/2022 4:10:19 PM Referred By: [facility] Confirmed By:Zack Hoffman
--- NOTE | 2022-05-27 18:38 | History & Physical Report ---
Date of Service May 27, 2022 Assessment & Plan (1) Acute hypotension: (2) Elevated lactic acid level: Plan: Admit to telemetry Patient presenting from [facility] for evaluation of hypotension. BP improved in ED after albumin infusion. Please refer to HPI for details of recent hospital admissions. Possible sepsis. Noted to be afebrile, no leukocytosis. No obvious source identified at this time. UA pending. Noted history of MSSA UTI 04/2022. S/p cefepime and Vanco in the ED. Continue with Vanco and Zosyn. Procalcitonin 31, lactate 5.4 --> 3.4. Continue to trend. Follow cultures Will give albumin infusions to help support blood pressure to be able to c ontinue patient's diuretic (3) Metastatic disease: (4) Transaminitis: (5) Pancytopenia: Plan: CT ABD/pelvis shows signs of diffuse metastatic disease Labs show transaminitis which has been present since 04/2022 along with pancytopenia Trend CBC, transfuse PRN Ultrasound-guided biopsy of liver lesions Will need outpatient follow-up with oncology. Given lethargy and transaminitis, will check ammonia level. Patient on lactulose --will increase dose and give rectally if ammonia level significantly elevated. Consider GI consult Palliative care consult - discussed with significant other at bedside (6) Elevated troponin: Plan: Likely demand ischemia in the setting of acute illness, hypotension HS troponin 66.4 Continue to trend (7) DM type 2 (diabetes mellitus, type 2): Plan: Hgb A1c 9.1 03/2022 NovoLog per protocol while hospitalized (8) Nonischemic cardiomyopathy: Plan: History of, EF resolved after aortic valve replacement EF 55 to 59% Echo 04/05/2022 Continue home dose Lasix, albumin as above (9) Paroxysmal atrial fibrillation: Plan: Rate controlled on metoprolol, anticoagulated on Eliquis (10) History of aortic valve replacement with bioprosthetic valve: Plan: Echo 04/05/2022-aortic valve prosthesis stenosis is absent (11) Chronic left arterial ischemic stroke, MCA (middle cerebral artery): Plan: In the setting of atrial fibrillation, continue Eliquis DVT prophylaxis On Eliquis History of Present Illness Chief Complaint: Hypotension Primary Care Provider: [facility] 62-year-old male with PMH DM type II, HLD, nonischemic cardiomyopathy, severe aortic valve stenosis s/p bioprosthetic aortic valve replacement, paroxysmal atrial fibrillation anticoagulant Eliquis, BPH, and other problems listed below who presents to the ED from [facility] for evaluation of hypotension. History obtained from review of outpatient record and patient's significant other who is the bedside. 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 Thrombectomy was attempted however occlusion was found to be chronic. Patient discharged to [facility] for rehab and returned home on 04/17/2022. 04/24/2022-04/27/2022 -admitted to [facility] for heart failure exacerbation, patient signed out AMA 04/30/2022-05/20/2022-admitted to [facility] for trauma after falling down a set of 15 steps. Injuries included epistaxis, forehead lacerations, bilateral open nasal bone fracture, maxillary fracture, C5 spinous process fracture, nondisplaced fracture of middle finger. Incidental findings on imaging during admission included mediastinal lymphadenopathy, pulmonary nodules, liver lesions. Patient discharged to [facility] again where he remains today. Per significant other at the bedside, she states that the patient has not been participating in therapy and that he has been too weak. Over the past several days, she notes increasing lower extremity edema and legs have been weeping. No reported fevers. Appetite has been fair. Patient sent to the ED today for evaluation of hypotension. Upon arrival, patient was hypotensive at 64/44. This improved after a dose of albumin. Labs show WBC 6.9K, Hgb 8.2, platelets 51K, initial lactate 5.4 --> 3.4, HS troponin 66.4, procalcitonin 31.04, transaminitis -T bili 0.9, AST 92, ALT 184, alk phos 452. CT abdomen pelvis shows signs of diffuse metastatic disease. Patient was given IV cefepime and IV Vanco. Allergies Allergy/AdvReac Type Severity Reaction Status Date / Time rabbit dander Allergy Mild Watery Eye Verified 05/27/22 15:34 ragweed pollen Allergy Mild Watery Eye Verified 05/27/22 15:34 Iodinated Contrast Media AdvReac Intermediate Vomiting Verified 05/27/22 15:34 Home Medications Medication Instructions Recorded Confirmed Type tamsulosin 0.4 mg capsule (Flomax) 0.4 mg PO DAILY 02/12/20 05/27/22 History acetaminophen 325 mg tablet 650 mg PO Q4H PRN Pain 05/27/22 05/27/22 History (Tylenol) apixaban 5 mg tablet (Eliquis) 5 mg PO BID 05/27/22 05/27/22 History atorvastatin 40 mg tablet 40 mg PO HS 05/27/22 05/27/22 History bacitracin 500 unit/gram topical 1 applic topical BID 05/27/22 05/27/22 History ointment bisacodyl 10 mg rectal suppository 10 mg AK DAILY PRN Constipation 05/27/22 05/27/22 History clotrimazole 1 % topical cream 1 applic topical BID 05/27/22 05/27/22 History (Clotrimazole AF) empagliflozin 25 mg tablet 25 mg PO QAM 05/27/22 05/27/22 History (Jardiance) folic acid 1 mg tablet 1 mg PO DAILY 05/27/22 05/27/22 History furosemide 40 mg tablet (Lasix) 40 mg PO BID 05/27/22 05/27/22 History insulin aspart U-100 100 unit/mL 10 unit subcut TIDM 05/27/22 05/27/22 History subcutaneous solution insulin glargine 100 unit/mL 27 unit subcut HS 05/27/22 05/27/22 History subcutaneous solution (Lantus U-100 Insulin) lactulose 10 gram/15 mL oral 10 g PO BID 05/27/22 05/27/22 History solution magnesium hydroxide 400 mg/5 mL 30 ml PO DAILY PRN Constipation 05/27/22 05/27/22 History oral suspension (Milk of Magnesia) melatonin 3 mg tablet 9 mg PO HS 05/27/22 05/27/22 History metoprolol succinate 50 mg 50 mg PO DAILY 05/27/22 05/27/22 History tablet,extended release 24 hr multivitamin with minerals 1 tab PO DAILY 05/27/22 05/27/22 History ondansetron HCl 4 mg tablet 4 mg PO Q4H PRN NAUSEA/VOMITING 05/27/22 05/27/22 History polyethylene glycol 3350 17 17 g PO QDL PRN Constipation 05/27/22 05/27/22 History gram/dose oral powder (Miralax) potassium chloride 20 mEq 40 meq PO BID 05/27/22 05/27/22 History tablet,extended release risperidone 0.25 mg tablet 0.25 mg PO Q8H 05/27/22 05/27/22 History sacubitril 24 mg-valsartan 26 mg 1 tab PO Q12H 05/27/22 05/27/22 History tablet (Entresto) sennosides 8.6 mg tablet (senna) 17.2 mg PO BID 05/27/22 05/27/22 History sennosides 8.6 mg-docusate sodium 1 tab-cap PO QDL PRN Constipation 05/27/22 05/27/22 History 50 mg tablet (Senokot-S) thiamine HCl (vitamin B1) 100 mg 100 mg PO DAILY 05/27/22 05/27/22 History tablet Past Med/Surg History Medical History BPH (benign prostatic hyperplasia) Chronic left arterial ischemic stroke, MCA (middle cerebral artery) DM type 2 (diabetes mellitus, type 2) HLD (hyperlipidemia) HTN (hypertension) Nonischemic cardiomyopathy PAD (peripheral artery disease) Paroxysmal atrial fibrillation Surgical History (Updated 05/27/22 @ 18:35 by MADDIE Antoine) History of aortic valve replacement with bioprosthetic valve Family History Mother Cancer Father Heart valve replaced Social History Smoking Status: Former smoker Cigarettes Per Day: 2; Hx Alcohol Use: Yes Alcohol type: beer Hx Substance Use: No Preferred Language: Bengali Communication Ability: Effective Beliefs That Will Affect Care: None marital status: Single Current Living Situation: Other Feels Safe at Home: Yes Assistive Devices: None Review of Systems Review of Systems: Unobtainable due to reduced consciousness Physical Exam Constitutional: well developed, well nourished and + ill appearing; no acute distress Eyes: PERRL, conjunctivae normal, anicteric sclerae Faint bilateral periorbital ecchymosis noted ENMT: external ear and nose normal, oropharynx normal Respiratory: normal respiratory effort; no respiratory distress Auscultation: + diminished lung sounds Cardiovascular: Rate/Rhythm: regular rate and regular rhythm Vessels: normal peripheral pulses Extremities: + edema (+2-3 pitting edema BLE) Gastrointestinal (Abdomen): normal bowel sounds, soft, nontender, no hepatosplenomegaly Musculoskeletal: Extremities: no cyanosis and no clubbing Generally weak throughout Skin: no rashes, warm and dry Psychiatric: Orientation: oriented to person; + not alert (Awakens to verbal stimuli), + not oriented to place and + not oriented to time Results & Data Results & Data ([facility]) Vital Signs (Past 12 Hours) Vital Signs Temp Pulse Resp BP BP Pulse Ox O2 Del Method 05/27/22 17:30 16 132/87 100 Nasal Cannula 05/27/22 15:15 87 9 L 100 Nasal Cannula 05/27/22 15:15 110/69 05/27/22 15:00 89 8 L 99 Nasal Cannula 05/27/22 15:00 107/71 05/27/22 14:45 89 10 L 100 Nasal Cannula 05/27/22 14:45 104/71 05/27/22 14:32 85 12 100 Nasal Cannula 05/27/22 14:32 111/74 05/27/22 14:00 93 H 16 100 Nasal Cannula 05/27/22 14:00 97/62 L 05/27/22 13:53 81/56 L 05/27/22 13:53 92 H 9 L 100 Nasal Cannula 05/27/22 13:45 105 H 8 L 100 Nasal Cannula 05/27/22 13:30 93 H 11 L 100 05/27/22 13:30 75/55 L 05/27/22 13:15 92 H 12 100 05/27/22 13:13 80/55 L 05/27/22 13:13 107 H 16 100 Nasal Cannula 05/27/22 13:11 64/44 L 05/27/22 13:11 114 H 9 L 100 Nasal Cannula 05/27/22 13:04 98 H 15 81 L Room Air 05/27/22 13:04 81 L Nasal Cannula 05/27/22 12:29 36.5 C 95 H 12 75/46 L 95 Nasal Cannula O2 Flow Rate 05/27/22 17:30 4 05/27/22 15:15 4 05/27/22 15:15 05/27/22 15:00 4 05/27/22 15:00 05/27/22 14:45 4 05/27/22 14:45 05/27/22 14:32 4 05/27/22 14:32 05/27/22 14:00 5 05/27/22 14:00 05/27/22 13:53 05/27/22 13:53 5 05/27/22 13:45 5 05/27/22 13:30 05/27/22 13:30 05/27/22 13:15 05/27/22 13:13 05/27/22 13:13 5 05/27/22 13:11 05/27/22 13:11 5 05/27/22 13:04 05/27/22 13:04 2 05/27/22 12:29 Laboratory Results Short CBC 05/27/22 Range/Units 13:14 WBC 6.91 (4.8-10.8) K/ul Hgb 8.2 L (14.0-18.0) g/dl Hct 25.5 L (40.1-51.0) % Plt Count 51 L (130-400) K/uL BMP 05/27/22 13:14 Sodium 147 H Potassium 3.6 Chloride 104 Carbon Dioxide 32 BUN 25 H Creatinine 1.11 Glucose 143 H Calcium 7.6 L Liver Function 05/27/22 Range/Units 13:14 Total Bilirubin 0.9 (0.2-1.0) mg/dl Direct Bilirubin 0.4 H (0-0.2) mg/dl AST 92 H (13-39) U/L ALT 184 H (7-52) U/L Alkaline Phosphatase 452 H (34-104) U/L Albumin 3.0 L (3.4-5.0) gm/dl Diagnostic Findings Chest X-Ray 05/27/22 12:15 XR chest 1V portable HISTORY: 62 years-old Male Sepsis acute sepsis COMPARISON: Chest radiographs 02/15/2020 TECHNIQUE: AP view of the chest FINDINGS: Cardiac silhouette is enlarged. Prior median sternotomy with cardiac valvular prosthesis. No pneumothorax, large pleural effusion or overt pulmonary edema. Mild subsegmental left basilar densities. Degenerative changes of the shoulders and spine. IMPRESSION: 1. Cardiomegaly without acute process. 2. Mild subsegmental left basilar opacities, likely representing atelectasis. A mild pneumonitis could appear similarly. ACT 112: Negative or not required by law. The above report was generated using voice recognition software. It may contain grammatical, syntax or spelling errors. Electronically signed by: Karthik Simon M.D. 05/27/2022 12:36 PM Abdomen/Pelvis CT 05/27/22 12:16 CT ANGIOGRAM OF THE CHEST; CT SCAN OF THE ABDOMEN AND PELVIS WITH IV CONTRAST CLINICAL HISTORY: Hypertension. Change in mental status. Lower extremity edema. Fall. COMPARISON STUDY: Chest x-ray dated 05/27/2022. Renal ultrasound dated 02/14/2020. TECHNIQUE: Following the IV administration of 120 of Optiray 320, CT angiogram of the chest is performed from the upper abdomen to the thoracic inlet utilizing the pulmonary embolus protocol. Images are reviewed in the axial, sagittal, coronal planes. 3-D MIPS images are created and assessed. Subsequently, CT scan of the abdomen and pelvis was performed from the lung bases to the proximal femora. Images are reviewed in the axial, sagittal, and coronal planes. IV contrast was administered without complication. A dose lowering technique was utilized adhering to the principles of ALARA. The examinations are compromised by motion artifact, as well as by streak artifact from the arms which could not be elevated above the chest or abdomen. CT DOSE: 2328.51 mGy.cm FINDINGS: CHEST: Thyroid: Imaged portions of the thyroid gland are normal in size and attenuation. Thoracic aorta: There is advanced atherosclerotic calcification of the thoracic aorta, which is normal in caliber and demonstrates standard 3-vessel arch anatomy. No dissection is seen. Pulmonary vasculature: The pulmonary trunk is normal in caliber. There are no filling defects identified in the main, lobar, or segmental pulmonary arteries to indicate pulmonary embolus. Evaluation of the peripheral branches is compromised by motion artifact. Heart: The patient is status post midline sternotomy and aortic valve surgery. The heart is enlarged and without pericardial effusion. The coronary arteries are densely calcified. Lungs and pleural spaces: Evaluation of the lung parenchyma is significantly degraded by motion artifact. The trachea and central airways are clear. No airspace consolidation or pleural effusion is identified. Foci of scarring/atelectasis are seen in both lungs. Mediastinum: There are pathologically enlarged mediastinal lymph nodes. An AP window jag aggregate on image #169 measures 4.1 x 2.8 cm. An anterior med iastinal node on image #169 measures 2.2 x 1.3 cm. Makayla: An enlarged right hilar node on image #142 measures 2.5 x 1.4 cm. No right hilar adenopathy is identified. Axillae: There is no axillary lymphadenopathy. A lead in the right infra- axillary soft tissues on image #148 measures 1.9 x 1.1 cm. Bony thorax: No lytic or blastic lesions are identified. There are numerous healed left-sided rib fractures. Degenerative change is noted in the shoulders and thoracic spine. ABDOMEN AND PELVIS: Liver: The contrast-enhanced liver is enlarged, measuring 20.7 cm in length. The liver is diffusely infiltrated by metastatic disease. A appliance service representative right lobe lesion on image #107 measures 2.6 cm. There is no intrahepatic biliary ductal dilatation. The hepatic veins and portal veins are patent. Gallbladder: There are calcified gallstones without CT evidence of acute cholecystitis. Spleen: Normal in size and attenuation. Pancreas: Mildly atrophic and grossly unremarkable. Adrenal glands: The adrenal glands are markedly thickened and hyperemic. The right adrenal gland measures up to 1.7 cm in thickness and the right adrenal gland measures up to 1.9 cm. Kidneys: There is asymmetric cortical atrophy of the left kidney as compared to the right. No hydronephrosis is seen. The right kidney enhances normally. Enhancement of the left kidney is slightly diminished. Abdominal vasculature: There is advanced atherosclerotic calcification and mild ectasia of the abdominal aorta. Stomach and bowel: There is a tiny hiatal hernia. The small bowel loops are normal in caliber. There is significant gaseous distention of the colon with air-fluid levels identified. The right colon measures up to 9 cm in diameter. No transition point or obstructing lesion is identified. The appendix is well- visualized and normal. Peritoneum/retroperitoneum: No intraperitoneal free air is seen. There is trace free fluid in the left lower quadrant. There are intraperitoneal and retroperitoneal implants. A left retroperitoneal implant posterior to left kidney on image #205 measures 1.4 cm. An implant along the anterior transverse colon on image #269 measures 2.2 cm. An implant anterior to the left adrenal gland on image #169 measures 1.7 cm. Lymphadenopathy: A prominent left retroperitoneal node on image #153 measures 8 mm in short axis. Pelvic viscera: The prostate gland is mildly enlarged and heterogeneous. The bladder is distended, and the wall is thickened/trabeculated indicating chronic outlet obstruction. Skeletal structures: There is mild to moderate lumbosacral spondylosis. No lytic or blastic lesions are seen. Soft tissues: Soft tissue contusion is suggested in the right flank on image #193. IMPRESSION: 1. Streak and motion compromised examinations. 2. There is no evidence of pulmonary embolus in the main, lobar, or segmental pulmonary arteries. 3. There is no airspace consolidation or pleural effusion. 4. Cardiomegaly. 5. There is evidence of extensive/diffuse metastatic disease. 6. The liver is enlarged and diffusely infiltrated by metastatic disease. 7. There are pathologically enlarged mediastinal and left hilar lymph nodes. 8. A metastatic soft tissue implant is seen in the right infra-axillary tissues. 9. Metastatic implants are seen in the peritoneum and retroperitoneum. 10. The adrenal glands are markedly thickened, likely representing adrenal metastases. 11. The colon is significantly distended and gas-filled with scattered air-fluid levels. No transitional point or obstructing lesion is seen and this could rep resent colonic ileus. Correlate clinically for evidence of a nonspecific colitis/diarrheal illness. 12. Cholelithiasis. 13. Soft tissue contusion is suggested in the right flank. 14. Additional findings as above. ACT 112: Positive. There are findings on this exam that require communication between the performing entity and the patient following Patient Test Result Information Act ([place] Act 112) guidelines. Electronically signed by: Kobi Nguyen M.D. 05/27/2022 3:01 PM Chest CTA 05/27/22 12:16 CT ANGIOGRAM OF THE CHEST; CT SCAN OF THE ABDOMEN AND PELVIS WITH IV CONTRAST CLINICAL HISTORY: Hypertension. Change in mental status. Lower extremity edema. Fall. COMPARISON STUDY: Chest x-ray dated 05/27/2022. Renal ultrasound dated 02/14/2020. TECHNIQUE: Following the IV administration of 120 of Optiray 320, CT angiogram of the chest is performed from the upper abdomen to the thoracic inlet utilizing the pulmonary embolus protocol. Images are reviewed in the axial, sagittal, coronal planes. 3-D MIPS images are created and assessed. Subsequently, CT scan of the abdomen and pelvis was performed from the lung bases to the proximal femora. Images are reviewed in the axial, sagittal, and coronal planes. IV contrast was administered without complication. A dose lowering technique was utilized adhering to the principles of ALARA. The examinations are compromised by motion artifact, as well as by streak artifact from the arms which could not be elevated above the chest or abdomen. CT DOSE: 2328.51 mGy.cm FINDINGS: CHEST: Thyroid: Imaged portions of the thyroid gland are normal in size and attenuation. Thoracic aorta: There is advanced atherosclerotic calcification of the thoracic aorta, which is normal in caliber and demonstrates standard 3-vessel arch anatomy. No dissection is seen. Pulmonary vasculature: The pulmonary trunk is normal in caliber. There are no filling defects identified in the main, lobar, or segmental pulmonary arteries to indicate pulmonary embolus. Evaluation of the peripheral branches is compromised by motion artifact. Heart: The patient is status post midline sternotomy and aortic valve surgery. The heart is enlarged and without pericardial effusion. The coronary arteries are densely calcified. Lungs and pleural spaces: Evaluation of the lung parenchyma is significantly degraded by motion artifact. The trachea and central airways are clear. No airspace consolidation or pleural effusion is identified. Foci of scarring/atelectasis are seen in both lungs. Mediastinum: There are pathologically enlarged mediastinal lymph nodes. An AP window jag aggregate on image #169 measures 4.1 x 2.8 cm. An anterior mediastinal node on image #169 measures 2.2 x 1.3 cm. Makayla: An enlarged right hilar node on image #142 measures 2.5 x 1.4 cm. No right hilar adenopathy is identified. Axillae: There is no axillary lymphadenopathy. A lead in the right infra- axillary soft tissues on image #148 measures 1.9 x 1.1 cm. Bony thorax: No lytic or blastic lesions are identified. There are numerous healed left-sided rib fractures. Degenerative change is noted in the shoulders and thoracic spine. ABDOMEN AND PELVIS: Liver: The contrast-enhanced liver is enlarged, measuring 20.7 cm in length. The liver is diffusely infiltrated by metastatic disease. A appliance service representative right lobe lesion on image #107 measures 2.6 cm. There is no intrahepatic biliary ductal dilatation. The hepatic veins and portal veins are patent. Gallbladder: There are calcified gallstones without CT evidence of acute cholecystitis. Spleen: Normal in size and attenuation. Pancreas: Mildly atrophic and grossly unremarkable. Adrenal glands: The adrenal glands are markedly thickened and hyperemic. The right adrenal gland measures up to 1.7 cm in thickness and the right adrenal gland measures up to 1.9 cm. Kidneys: There is asymmetric cortical atrophy of the left kidney as compared to the right. No hydronephrosis is seen. The right kidney enhances normally. Enhancement of the left kidney is slightly diminished. Abdominal vasculature: There is advanced atherosclerotic calcification and mild ectasia of the abdominal aorta. Stomach and bowel: There is a tiny hiatal hernia. The small bowel loops are normal in caliber. There is significant gaseous distention of the colon with air-fluid levels identified. The right colon measures up to 9 cm in diameter. No transition point or obstructing lesion is identified. The appendix is well- visualized and normal. Peritoneum/retroperitoneum: No intraperitoneal free air is seen. There is trace free fluid in the left lower quadrant. There are intraperitoneal and retroperitoneal implants. A left retroperitoneal implant posterior to left kidney on image #205 measures 1.4 cm. An implant along the anterior transverse colon on image #269 measures 2.2 cm. An implant anterior to the left adrenal gland on image #169 measures 1.7 cm. Lymphadenopathy: A prominent left retroperitoneal node on image #153 measures 8 mm in short axis. Pelvic viscera: The prostate gland is mildly enlarged and heterogeneous. The bladder is distended, and the wall is thickened/trabeculated indicating chronic outlet obstruction. Skeletal structures: There is mild to moderate lumbosacral spondylosis. No lytic or blastic lesions are seen. Soft tissues: Soft tissue contusion is suggested in the right flank on image #193. IMPRESSION: 1. Streak and motion compromised examinations. 2. There is no evidence of pulmonary embolus in the main, lobar, or segmental pu lmonary arteries. 3. There is no airspace consolidation or pleural effusion. 4. Cardiomegaly. 5. There is evidence of extensive/diffuse metastatic disease. 6. The liver is enlarged and diffusely infiltrated by metastatic disease. 7. There are pathologically enlarged mediastinal and left hilar lymph nodes. 8. A metastatic soft tissue implant is seen in the right infra-axillary tissues. 9. Metastatic implants are seen in the peritoneum and retroperitoneum. 10. The adrenal glands are markedly thickened, likely representing adrenal metastases. 11. The colon is significantly distended and gas-filled with scattered air-fluid levels. No transitional point or obstructing lesion is seen and this could represent colonic ileus. Correlate clinically for evidence of a nonspecific col itis/diarrheal illness. 12. Cholelithiasis. 13. Soft tissue contusion is suggested in the right flank. 14. Additional findings as above. ACT 112: Positive. There are findings on this exam that require communication between the performing entity and the patient following Patient Test Result Information Act ([place] Act 112) guidelines. Electronically signed by: Kobi Nguyen M.D. 05/27/2022 3:01 PM Code Status & VTE Plan Code Status Patient is a full code as per discussion with significant other at the bedside. Supervising Physician Co-Signing Physician Notes Patient seen and examined by me, care coordinated with MADDIE Antoine, please refer to her note above for further detail. Pt is a 62 yo male with DM type II, HLD, nonischemic cardiomyopathy, severe aortic valve stenosis s/p bioprosthetic aortic valve replacement, paroxysmal atrial fibrillation anticoagulant Eliquis, BPH, who presents from [facility] for evaluation of hypotension/lethargy. 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 Thrombectomy was attempted however occlusion was found to be chronic. Patient discharged to [facility] for rehab and returned home on 04/17/2022. 04/24/2022-04/27/2022 -admitted to [facility] for heart failure exacerbation, patient signed out AMA 04/30/2022-05/20/2022-admitted to [facility] for trauma after falling down a set of 15 steps. Injuries included epistaxis, forehead lacerations, bilateral open nasal bone fracture, maxillary fracture, C5 spinous process fracture, nondisplaced fracture of middle finger. Incidental findings on imaging during admission included mediastinal lymphadenopathy, pulmonary nodules, liver lesions. Patient discharged to [facility] again where he remained. Currently patient is lying in bed, in no acute distress, however not able to participate much in conversation. He opens his eyes to voice, he tells me that he is in the hospital, however not able to provide any more history than that. Denies any complaints, denies any pain, when asked if he feels comfortable he says yes. Granddaughter and significant other present at the bedside. 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 Discussed CODE STATUS, they believe that patient would want to be DNR/DNI, however they will discuss with other family members. I contacted box spring maker and radiologist to see how we could obtain biopsy of one of the lesions. After my discussion, ordered radiology biopsy. Family aware that the patient will need PET scan and biopsy from previous conversations with healthcare providers. However patient did not have a chance yet for further work-up. Discussed that in best case scenario, patient gets better, gets biopsy and will be discharged from hospital, however at this moment his condition could deteriorate even further. Family is in understanding. Will await cultures, will continue IV antibiotics. We will continue to closely monitor. We will provide IV albumin to help with blood pressure. MD Leena
[2022-05-27] MEDS ORDERED: GLUCOSE 10 TAB/TUBE PO PRN (19:07)
[2022-05-27] MEDS ORDERED: DEXTROSE 50% 50 ML SYRINGE IV PRN (19:07)
[2022-05-27] MEDS ORDERED: GLUCAGON FOR INJ 1 MG VIAL SQ PRN (19:07)
[2022-05-27] MEDS ORDERED: ACETAMINOPHEN 325 MG TAB PO PRN (19:07)
[2022-05-27] MEDS ORDERED: GLUCOSE 40% GEL 15 GM TUBE PO PRN (19:07)
[2022-05-27] MEDS ORDERED: PIPERACILLIN/TAZOBACTAM 3.375 GM in DEXTROSE 5% 100 ML IV ONE (20:00)
[2022-05-27] MEDS ORDERED: VALSARTAN/SACUBITRIL 26/24MG TAB PO SCH (21:00)
[2022-05-27] MEDS ORDERED: FUROSEMIDE 40 MG TAB PO SCH (21:00)
[2022-05-27] MEDS ORDERED: POTASSIUM CHLORIDE CRTAB 20 MEQ TABCR PO SCH (21:00)
[2022-05-27] MEDS ORDERED: INSULIN ASPART PER UNIT SC SCH (21:00)
[2022-05-27] MEDS ORDERED: ATORVASTATIN 40 MG TAB PO SCH (21:00)
[2022-05-27] MEDS ORDERED: APIXABAN 5 MG TABLET PO SCH (21:00)
[2022-05-27] MEDS ORDERED: SENNA 8.6 MG TAB PO SCH (21:00)
[2022-05-27] MEDS ORDERED: OLANZapine 10 MG/2.1 ML SDV IM PRN (21:10)
[2022-05-27] MEDS: ALBUMIN 25% 100 mL 25 GM/100 ML VIAL IV SCH (21:11)
[2022-05-27] MEDS: risperiDONE 0.5 MG TABLET PO SCH (22:06)
[2022-05-27] MEDS: LACTULOSE SYRUP 10 GM/15 ML BTL 960 ML PO SCH (22:06)
[2022-05-27 22:42] LABS: Appearance Urine Cloudy (Clear); Bacteria Urine Automated 1+ (Negative); Bilirubin Urine Negative (Negative); Blood Urine 1+ (Negative); Color Urine Yellow; Epithelial Cell Urine Auto 0-5 /lpf (0-5); Glucose Urine UA 3+ (Negative); Ketones Urine Negative (Negative); Leukocyte Esterase Urine 1+ (Negative); Nitrite Urine Negative (Negative); Protein Urine 1+ (Negative); RBC Urine Automated 0-4 /hpf (0-4); Specific Gravity Urine 1.021 (1.000-1.030); Urobilinogen Urine Negative (Negative); pH Urine 5.5 (4.5-7.5)
[2022-05-27] MEDS ORDERED: Nursing to Pharmacy Communication SCH (23:30)
[2022-05-28] MEDS: INSULIN ASPART PER UNIT SC SCH ×5 (00:51→23:50)
[2022-05-28] MEDS: METOPROLOL TARTRATE 1 MG/ML VIAL IV SCH ×5 (01:07→23:49)
[2022-05-28] MEDS: VANCOMYCIN HCL 1,000 MG in SODIUM CHLORIDE 0.9% 250 ML IV SCH ×3 (01:07→23:50)
[2022-05-28] MEDS: PIPERACILLIN/TAZOBACTAM 3.375 GM in DEXTROSE 5% 100 ML IV SCH ×3 (02:36→17:32)
[2022-05-28] MEDS: ALBUMIN 25% 100 mL 25 GM/100 ML VIAL IV SCH (06:17)
--- NOTE | 2022-05-28 07:06 | CT Scan Report ---
CT head/brain wo con CLINICAL HISTORY: 62 years-old Male with AMS. Acutely altered mental status TECHNIQUE: Multiple axial CT images of the head were obtained without contrast. A dose lowering tech nique was utilized adhering to the principles of ALARA. CT DOSE: 614.27 mGy.cm COMPARISON: None. FINDINGS: No acute intracranial hemorrhage, midline shift, intracranial mass, hydrocephalus, territorial ischem ia or abnormal extra-axial collection. Mild involutional changes. Cerebral vascular calcifications. No acute calvarial fracture. Comminuted and displaced bilateral nasal bone fractures without signific ant adjacent soft tissue swelling. The paranasal sinuses, mastoid air cells, and middle ear cavities are clear. IMPRESSION: 1. No acute intracranial abnormality or calvarial fracture identified. 2. Age-indeterminate comminuted and displaced bilateral nasal bone fractures without significant soft tissue swelling, possibly subacute or chronic. Correlate with point tenderness. ACT 112: Negative or not required by law. The above report was generated using voice recognition software. It may contain grammatical, syntax o r spelling errors. Electronically signed by: Karthik Simon M.D. 05/28/2022 7:03 AM
[2022-05-28 07:34] LABS: Albumin Globulin Ratio 1.8 (0.9-2); Albumin Level 3.3 gm/dl (3.4-5.0); BUN Creatinine Ratio 19.6 (10-20); Bilirubin,Total 1.1 mg/dl (0.2-1.0); Calcium 7.6 mg/dl (8.5-10.1); Est GFR (African American) 85.2 ml/min; Est GFR (Non-African American) 73.5 ml/min; Globulin 1.8 gm/dl (2.5-4.0); Potassium 3.5 mmol/L (3.5-5.1); Total Protein 5.1 gm/dl (6.0-8.3)
--- NOTE | 2022-05-28 07:38 | Hospitalist Progress Note ---
Date of Service May 28, 2022 Assessment & Plan (1) Acute hypotension: (2) Elevated lactic acid level: Plan: Patient presenting from [facility] for evaluation of hypotension/lethargy. BP improved in ED after albumin infusion. Please refer to HPI for details of recent hospital admissions. Possible sepsis. Noted to be afebrile, no leukocytosis. No obvious source identified at this time. Ucultx pending. Noted history of MSSA UTI 04/2022. S/p cefepime and Vanco in the ED. Continue with Vanco and Zosyn. Procalcitonin 31, lactate 5.4 --> 3.4 -> 1.1 (now normal) Follow cultures - pending gave albumin infusions to help support blood pressure to be able to continue patient's diuretic (3) Metastatic disease: (4) Transaminitis: (5) Pancytopenia: Plan: CT ABD/pelvis shows signs of diffuse metastatic disease Labs show transaminitis which has been present since 04/2022 along with pancytopenia Trend CBC, transfuse PRN Discussed with GI and radiology, about biopsy of one of the lesionsultrasound- guided biopsy of liver lesions ordered Will need outpatient follow-up with oncology. Given lethargy and transaminitis, checked ammonia level - 27 wnl. Patient on lactulose --will increase dose and give rectally if ammonia level significantly elevated. Consider GI consult Palliative care consult - discussed with significant other at bedside Hemoglobin on admission 8.2, this morning 6.4, possibly due to IV fluids Obtained blood consent form Alis over the phone, as patient is unable to participate in any meaningful conversation Will transfuse 1 unit PRBCs Will provide IV Lasix Prognosis is guarded (6) Elevated troponin: Plan: Likely demand ischemia in the setting of acute illness, hypotension HS troponin 66.4 -> 71 ->63 (7) DM type 2 (diabetes mellitus, type 2): Plan: Hgb A1c 9.1 03/2022 NovoLog per protocol while hospitalized (8) Nonischemic cardiomyopathy: Plan: History of, EF resolved after aortic valve replacement EF 55 to 59% Echo 04/05/2022 Continue home dose Lasix, albumin as above (9) Paroxysmal atrial fibrillation: Plan: Rate controlled on metoprolol, anticoagulated on Eliquis Eliquis on hold now for thrombocytopenia (10) History of aortic valve replacement with bioprosthetic valve: Plan: Echo 04/05/2022-aortic valve prosthesis stenosis is absent (11) Chronic left arterial ischemic stroke, MCA (middle cerebral artery): Plan: In the setting of atrial fibrillation, Eliquis on hold as above DVT prophylaxis - Eliquis on hold CODE: DNR/DNI -after discussing with family overnight, prognosis is guarded Admission and Anticipated Discharge Date Admission Date: May 27, 2022 Subjective Patient seen in follow-up of encephalopathy, hypotension, metastatic disease Overnight patient became more lethargic, unable to take p.o. medications, NG tube was discussed and declined. Family wanted to change CODE STATUS to DNR/DNI which was done by the cobbler apprentice. This morning, patient is lying in bed, in no acute distress, however only opens his eyes to voice and touch, able to answer few simple questions appropriately, however again not participating in any conversation. Closes his eyes immediately. Hemoglobin down this morning, called his significant other about blood consent. Alis agreed to a blood transfusion. Will provide unit of PRBCs. Patient denies chest pain abdominal pain shortness of breath, says not feeling v marie well. Review of Systems Review of Systems: Unobtainable due to cognitive status Physical Exam Physical Exam: Constitutional:L well developed, we ll nourished and + ill appearing; no acute distress Eyes: PERRL, conjunctiva e normal, anicteri c sclerae Faint b ilateral periorbit al ecchymosis note d ENMT: trauma to nose not ed Respiratory: normal respiratory effort; no respir atory distress Au scultation: + dimi nished lung sounds Cardiovascular:L Rate/Rhythm: regul ar rate and regula r rhythm Vessels: normal peripheral pulses Extremiti es: + edema (+2 pi tting edema BLE) Gastrointestinal ( Abdomen): normal bowel sound s, soft, nontender , +obese Musculoskeletal: Generally weak, no t participating in exam much Skin: no rashes, warm an d dry Psychiatric: Awakens to voice a nd touch, answers some but not able to answer all ques tions or participa te in conversation Results & Data Results & Data ([facility]) Vital Signs (Past 12 Hours) Vital Signs Temp Pulse Pulse Resp BP BP Pulse Ox 05/27/22 20:00 05/28/22 06:17 84 169/104 H 05/27/22 23:00 74 05/28/22 02:53 36.4 C L 82 18 134/80 99 05/28/22 01:07 82 119/75 05/27/22 23:12 37.0 C 82 18 109/74 90 O2 Del Method O2 Flow Rate 05/27/22 20:00 Nasal Cannula 2 05/28/22 06:17 05/27/22 23:00 05/28/22 02:53 Nasal Cannula 05/28/22 01:07 05/27/22 23:12 Nasal Cannula Laboratory Results 05/28/22 05/28/22 05/28/22 Range/Units 06:59 06:59 06:59 WBC Pending (4.8-10.8) K/ul RBC Pending (4.63-6.08) M/uL Hgb Pending (14.0-18.0) g/dl Hct Pending (40.1-51.0) % MCV Pending (80.0-100.0) fL MCH Pending (25.0-34.0) pg MCHC Pending (32.0-36.0) g/dL RDW Std Deviation (36.4-46.3) fL RDW Coeff of Alpa (11.5-14.5) % Plt Count Pending (130-400) K/uL MPV (9.4-12.4) fL Immature Gran % (Auto) % Neut % (Auto) % Lymph % (Auto) % [place] % (Auto) % Eos % (Auto) % Baso % (Auto) % Neut # (Auto) (1.4-6.5) K/uL Lymph # (Auto) (1.2-3.4) K/uL [place] # (Auto) (0.24-0.82) K/uL Eos # (Auto) (0-0.50) K/uL Baso # (Auto) (0-0.2) K/uL Immature Gran # (Auto) (0.00-0.02) K/uL Absolute Nucleated RBC (0-0) K/uL Nucleated RBC % (auto) % Polychromasia Anisocytosis PT (9.0-12.0) Seconds INR (0.9-1.1) APTT (21.0-31.0) Seconds PTT Ratio VBG pH (7.36-7.41) VBG pCO2 (38-50) mmHg VBG pO2 mmHg VBG HCO3 mmol/L VBG O2 Saturation % VBG Base Excess mEq/L Sodium 149 H (136-145) mmol/L Potassium 3.5 (3.5-5.1) mmol/L Chloride 108 H (98-107) mmol/L Carbon Dioxide 35 H (21-32) mmol/L Anion Gap 6 (3-11) BUN 21 (6-23) mg/dl Creatinine 1.07 (0.6-1.4) mg/dl Est Cr Clr Drug Dosing 73.0 Est GFR ( Amer) 85.2 ml/min Est GFR (Non-Af Amer) 73.5 ml/min BUN/Creatinine Ratio 19.6 (10-20) Glucose 115 H (70-99(Fasting)) mg/dl POC Glucose (70-99) mg/dl Lactate (0.4-2.0) mmol/L Calcium 7.6 L (8.5-10.1) mg/dl Magnesium (1.7-2.4) mg/dl Total Bilirubin 1.1 H (0.2-1.0) mg/dl Direct Bilirubin (0-0.2) mg/dl AST 89 H (13-39) U/L ALT 147 H (7-52) U/L Alkaline Phosphatase 322 H (34-104) U/L Ammonia 33.0 (18-72) umol/L Troponin I High Sens (0-20) pg/ml Total Protein 5.1 L (6.0-8.3) gm/dl Albumin 3.3 L (3.4-5.0) gm/dl Globulin 1.8 L (2.5-4.0) gm/dl Albumin/Globulin Ratio 1.8 (0.9-2) Procalcitonin (0-0.5) ng/ml Urine Color Urine Appearance (Clear) Urine pH (4.5-7.5) Ur Specific Ramsay (1.000-1.030) Urine Protein (Negative) Urine Glucose (UA) (Negative) Urine Ketones (Negative) Urine Blood (Negative) Urine Nitrite (Negative) Urine Bilirubin (Negative) Urine Urobilinogen (Negative) Ur Leukocyte Esterase (Negative) Urine WBC (Auto) (0-5) /hpf Urine RBC (Auto) (0-4) /hpf U Hyaline Cast (Auto) (0-5) /lpf U Epithel Cells (Auto) (0-5) /lpf Urine Bacteria (Auto) (Negative) Urine Yeast SARS-CoV-2 (PCR) (Negative) Influenza Type A (PCR) (Neg) Influenza Type B (PCR) (Neg) RSV (RT-PCR) (Neg) 05/28/22 05/28/22 05/28/22 Range/Units 06:27 00:45 00:21 WBC (4.8-10.8) K/ul RBC (4.63-6.08) M/uL Hgb (14.0-18.0) g/dl Hct (40.1-51.0) % MCV (80.0-100.0) fL MCH (25.0-34.0) pg MCHC (32.0-36.0) g/dL RDW Std Deviation (36.4-46.3) fL RDW Coeff of Alpa (11.5-14.5) % Plt Count (130-400) K/uL MPV (9.4-12.4) fL Immature Gran % (Auto) % Neut % (Auto) % Lymph % (Auto) % [place] % (Auto) % Eos % (Auto) % Baso % (Auto) % Neut # (Auto) (1.4-6.5) K/uL Lymph # (Auto) (1.2-3.4) K/uL [place] # (Auto) (0.24-0.82) K/uL Eos # (Auto) (0-0.50) K/uL Baso # (Auto) (0-0.2) K/uL Immature Gran # (Auto) (0.00-0.02) K/uL Absolute Nucleated RBC (0-0) K/uL Nucleated RBC % (auto) % Polychromasia Anisocytosis PT (9.0-12.0) Seconds INR (0.9-1.1) APTT (21.0-31.0) Seconds PTT Ratio VBG pH (7.36-7.41) VBG pCO2 (38-50) mmHg VBG pO2 mmHg VBG HCO3 mmol/L VBG O2 Saturation % VBG Base Excess mEq/L Sodium (136-145) mmol/L Potassium (3.5-5.1) mmol/L Chloride (98-107) mmol/L Carbon Dioxide (21-32) mmol/L Anion Gap (3-11) BUN (6-23) mg/dl Creatinine (0.6-1.4) mg/dl Est Cr Clr Drug Dosing Est GFR ( Amer) ml/min Est GFR (Non-Af Amer) ml/min BUN/Creatinine Ratio (10-20) Glucose (70-99(Fasting)) mg/dl POC Glucose 108 H 114 H (70-99) mg/dl Lactate (0.4-2.0) mmol/L Calcium (8.5-10.1) mg/dl Magnesium (1.7-2.4) mg/dl Total Bilirubin (0.2-1.0) mg/dl Direct Bilirubin (0-0.2) mg/dl AST (13-39) U/L ALT (7-52) U/L Alkaline Phosphatase (34-104) U/L Ammonia (18-72) umol/L Troponin I High Sens 63.6 H* (0-20) pg/ml Total Protein (6.0-8.3) gm/dl Albumin (3.4-5.0) gm/dl Globulin (2.5-4.0) gm/dl Albumin/Globulin Ratio (0.9-2) Procalcitonin (0-0.5) ng/ml Urine Color Urine Appearance (Clear) Urine pH (4.5-7.5) Ur Specific [place] (1.000-1.030) Urine Protein (Negative) Urine Glucose (UA) (Negative) Urine Ketones (Negative) Urine Blood (Negative) Urine Nitrite (Negative) Urine Bilirubin (Negative) Urine Urobilinogen (Negative) Ur Leukocyte Esterase (Negative) Urine WBC (Auto) (0-5) /hpf Urine RBC (Auto) (0-4) /hpf U Hyaline Cast (Auto) (0-5) /lpf U Epithel Cells (Auto) (0-5) /lpf Urine Bacteria (Auto) (Negative) Urine Yeast SARS-CoV-2 (PCR) (Negative) Influenza Type A (PCR) (Neg) Influenza Type B (PCR) (Neg) RSV (RT-PCR) (Neg) 05/27/22 05/27/22 05/27/22 Range/Units 20:39 20:17 18:03 WBC (4.8-10.8) K/ul RBC (4.63-6.08) M/uL Hgb (14.0-18.0) g/dl Hct (40.1-51.0) % MCV (80.0-100.0) fL MCH (25.0-34.0) pg MCHC (32.0-36.0) g/dL RDW Std Deviation (36.4-46.3) fL RDW Coeff of Alpa (11.5-14.5) % Plt Count (130-400) K/uL MPV (9.4-12.4) fL Immature Gran % (Auto) % Neut % (Auto) % Lymph % (Auto) % [place] % (Auto) % Eos % (Auto) % Baso % (Auto) % Neut # (Auto) (1.4-6.5) K/uL Lymph # (Auto) (1.2-3.4) K/uL [place] # (Auto) (0.24-0.82) K/uL Eos # (Auto) (0-0.50) K/uL Baso # (Auto) (0-0.2) K/uL Immature Gran # (Auto) (0.00-0.02) K/uL Absolute Nucleated RBC (0-0) K/uL Nucleated RBC % (auto) % Polychromasia Anisocytosis PT (9.0-12.0) Seconds INR (0.9-1.1) APTT (21.0-31.0) Seconds PTT Ratio VBG pH (7.36-7.41) VBG pCO2 (38-50) mmHg VBG pO2 mmHg VBG HCO3 mmol/L VBG O2 Saturation % VBG Base Excess mEq/L Sodium (136-145) mmol/L Potassium (3.5-5.1) mmol/L Chloride (98-107) mmol/L Carbon Dioxide (21-32) mmol/L Anion Gap (3-11) BUN (6-23) mg/dl Creatinine (0.6-1.4) mg/dl Est Cr Clr Drug Dosing Est GFR ( Amer) ml/min Est GFR (Non-Af Amer) ml/min BUN/Creatinine Ratio (10-20) Glucose (70-99(Fasting)) mg/dl POC Glucose 159 H (70-99) mg/dl Lactate 1.1 (0.4-2.0) mmol/L Calcium (8.5-10.1) mg/dl Magnesium (1.7-2.4) mg/dl Total Bilirubin (0.2-1.0) mg/dl Direct Bilirubin (0-0.2) mg/dl AST (13-39) U/L ALT (7-52) U/L Alkaline Phosphatase (34-104) U/L Ammonia (18-72) umol/L Troponin I High Sens (0-20) pg/ml Total Protein (6.0-8.3) gm/dl Albumin (3.4-5.0) gm/dl Globulin (2.5-4.0) gm/dl Albumin/Globulin Ratio (0.9-2) Procalcitonin (0-0.5) ng/ml Urine Color Yellow Urine Appearance Cloudy A (Clear) Urine pH 5.5 (4.5-7.5) Ur Specific [place] 1.021 (1.000-1.030) Urine Protein 1+ H (Negative) Urine Glucose (UA) 3+ H (Negative) Urine Ketones Negative (Negative) Urine Blood 1+ H (Negative) Urine Nitrite Negative (Negative) Urine Bilirubin Negative (Negative) Urine Urobilinogen Negative (Negative) Ur Leukocyte Esterase 1+ H (Negative) Urine WBC (Auto) 10-30 H (0-5) /hpf Urine RBC (Auto) 0-4 (0-4) /hpf U Hyaline Cast (Auto) 1-5 (0-5) /lpf U Epithel Cells (Auto) 0-5 (0-5) /lpf Urine Bacteria (Auto) 1+ H (Negative) Urine Yeast Not Reportable SARS-CoV-2 (PCR) (Negative) Influenza Type A (PCR) (Neg) Influenza Type B (PCR) (Neg) RSV (RT-PCR) (Neg) 05/27/22 05/27/22 05/27/22 Range/Units 18:03 15:42 14:35 WBC (4.8-10.8) K/ul RBC (4.63-6.08) M/uL Hgb (14.0-18.0) g/dl Hct (40.1-51.0) % MCV (80.0-100.0) fL MCH (25.0-34.0) pg MCHC (32.0-36.0) g/dL RDW Std Deviation (36.4-46.3) fL RDW Coeff of Alpa (11.5-14.5) % Plt Count (130-400) K/uL MPV (9.4-12.4) fL Immature Gran % (Auto) % Neut % (Auto) % Lymph % (Auto) % [place] % (Auto) % Eos % (Auto) % Baso % (Auto) % Neut # (Auto) (1.4-6.5) K/uL Lymph # (Auto) (1.2-3.4) K/uL [place] # (Auto) (0.24-0.82) K/uL Eos # (Auto) (0-0.50) K/uL Baso # (Auto) (0-0.2) K/uL Immature Gran # (Auto) (0.00-0.02) K/uL Absolute Nucleated RBC (0-0) K/uL Nucleated RBC % (auto) % Polychromasia Anisocytosis PT (9.0-12.0) Seconds INR (0.9-1.1) APTT (21.0-31.0) Seconds PTT Ratio VBG pH (7.36-7.41) VBG pCO2 (38-50) mmHg VBG pO2 mmHg VBG HCO3 mmol/L VBG O2 Saturation % VBG Base Excess mEq/L Sodium (136-145) mmol/L Potassium (3.5-5.1) mmol/L Chloride (98-107) mmol/L Carbon Dioxide (21-32) mmol/L Anion Gap (3-11) BUN (6-23) mg/dl Creatinine (0.6-1.4) mg/dl Est Cr Clr Drug Dosing Est GFR ( Amer) ml/min Est GFR (Non-Af Amer) ml/min BUN/Creatinine Ratio (10-20) Glucose (70-99(Fasting)) mg/dl POC Glucose (70-99) mg/dl Lactate 3.4 H* (0.4-2.0) mmol/L Calcium (8.5-10.1) mg/dl Magnesium (1.7-2.4) mg/dl Total Bilirubin (0.2-1.0) mg/dl Direct Bilirubin (0-0.2) mg/dl AST (13-39) U/L ALT (7-52) U/L Alkaline Phosphatase (34-104) U/L Ammonia 27.0 (18-72) umol/L Troponin I High Sens (0-20) pg/ml Total Protein (6.0-8.3) gm/dl Albumin (3.4-5.0) gm/dl Globulin (2.5-4.0) gm/dl Albumin/Globulin Ratio (0.9-2) Procalcitonin (0-0.5) ng/ml Urine Color Urine Appearance (Clear) Urine pH (4.5-7.5) Ur Specific [place] (1.000-1.030) Urine Protein (Negative) Urine Glucose (UA) (Negative) Urine Ketones (Negative) Urine Blood (Negative) Urine Nitrite (Negative) Urine Bilirubin (Negative) Urine Urobilinogen (Negative) Ur Leukocyte Esterase (Negative) Urine WBC (Auto) (0-5) /hpf Urine RBC (Auto) (0-4) /hpf U Hyaline Cast (Auto) (0-5) /lpf U Epithel Cells (Auto) (0-5) /lpf Urine Bacteria (Auto) (Negative) Urine Yeast SARS-CoV-2 (PCR) NEGATIVE (Negative) Influenza Type A (PCR) Negative (Neg) Influenza Type B (PCR) Negative (Neg) RSV (RT-PCR) Negative (Neg) 05/27/22 05/27/22 05/27/22 Range/Units 13:14 13:14 13:14 WBC (4.8-10.8) K/ul RBC (4.63-6.08) M/uL Hgb (14.0-18.0) g/dl Hct (40.1-51.0) % MCV (80.0-100.0) fL MCH (25.0-34.0) pg MCHC (32.0-36.0) g/dL RDW Std Deviation (36.4-46.3) fL RDW Coeff of Alpa (11.5-14.5) % Plt Count (130-400) K/uL MPV (9.4-12.4) fL Immature Gran % (Auto) % Neut % (Auto) % Lymph % (Auto) % [place] % (Auto) % Eos % (Auto) % Baso % (Auto) % Neut # (Auto) (1.4-6.5) K/uL Lymph # (Auto) (1.2-3.4) K/uL [place] # (Auto) (0.24-0.82) K/uL Eos # (Auto) (0-0.50) K/uL Baso # (Auto) (0-0.2) K/uL Immature Gran # (Auto) (0.00-0.02) K/uL Absolute Nucleated RBC (0-0) K/uL Nucleated RBC % (auto) % Polychromasia Anisocytosis PT (9.0-12.0) Seconds INR (0.9-1.1) APTT (21.0-31.0) Seconds PTT Ratio VBG pH 7.38 (7.36-7.41) VBG pCO2 59 H (38-50) mmHg VBG pO2 31 mmHg VBG HCO3 35 mmol/L VBG O2 Saturation < 60.0 % VBG Base Excess 7.7 mEq/L Sodium (136-145) mmol/L Potassium (3.5-5.1) mmol/L Chloride (98-107) mmol/L Carbon Dioxide (21-32) mmol/L Anion Gap (3-11) BUN (6-23) mg/dl Creatinine (0.6-1.4) mg/dl Est Cr Clr Drug Dosing Est GFR ( Amer) ml/min Est GFR (Non-Af Amer) ml/min BUN/Creatinine Ratio (10-20) Glucose (70-99(Fasting)) mg/dl POC Glucose (70-99) mg/dl Lactate (0.4-2.0) mmol/L Calcium (8.5-10.1) mg/dl Magnesium (1.7-2.4) mg/dl Total Bilirubin (0.2-1.0) mg/dl Direct Bilirubin (0-0.2) mg/dl AST (13-39) U/L ALT (7-52) U/L Alkaline Phosphatase (34-104) U/L Ammonia (18-72) umol/L Troponin I High Sens 71.6 H* (0-20) pg/ml Total Protein (6.0-8.3) gm/dl Albumin (3.4-5.0) gm/dl Globulin (2.5-4.0) gm/dl Albumin/Globulin Ratio (0.9-2) Procalcitonin 31.04 H (0-0.5) ng/ml Urine Color Urine Appearance (Clear) Urine pH (4.5-7.5) Ur Specific [place] (1.000-1.030) Urine Protein (Negative) Urine Glucose (UA) (Negative) Urine Ketones (Negative) Urine Blood (Negative) Urine Nitrite (Negative) Urine Bilirubin (Negative) Urine Urobilinogen (Negative) Ur Leukocyte Esterase (Negative) Urine WBC (Auto) (0-5) /hpf Urine RBC (Auto) (0-4) /hpf U Hyaline Cast (Auto) (0-5) /lpf U Epithel Cells (Auto) (0-5) /lpf Urine Bacteria (Auto) (Negative) Urine Yeast SARS-CoV-2 (PCR) (Negative) Influenza Type A (PCR) (Neg) Influenza Type B (PCR) (Neg) RSV (RT-PCR) (Neg) 05/27/22 05/27/22 05/27/22 Range/Units 13:14 13:14 13:14 WBC (4.8-10.8) K/ul RBC (4.63-6.08) M/uL Hgb (14.0-18.0) g/dl Hct (40.1-51.0) % MCV (80.0-100.0) fL MCH (25.0-34.0) pg MCHC (32.0-36.0) g/dL RDW Std Deviation (36.4-46.3) fL RDW Coeff of Alpa (11.5-14.5) % Plt Count (130-400) K/uL MPV (9.4-12.4) fL Immature Gran % (Auto) % Neut % (Auto) % Lymph % (Auto) % [place] % (Auto) % Eos % (Auto) % Baso % (Auto) % Neut # (Auto) (1.4-6.5) K/uL Lymph # (Auto) (1.2-3.4) K/uL [place] # (Auto) (0.24-0.82) K/uL Eos # (Auto) (0-0.50) K/uL Baso # (Auto) (0-0.2) K/uL Immature Gran # (Auto) (0.00-0.02) K/uL Absolute Nucleated RBC (0-0) K/uL Nucleated RBC % (auto) % Polychromasia Anisocytosis PT 11.7 (9.0-12.0) Seconds INR 1.1 (0.9-1.1) APTT 22.0 (21.0-31.0) Seconds PTT Ratio 0.8 VBG pH (7.36-7.41) VBG pCO2 (38-50) mmHg VBG pO2 mmHg VBG HCO3 mmol/L VBG O2 Saturation % VBG Base Excess mEq/L Sodium 147 H (136-145) mmol/L Potassium 3.6 (3.5-5.1) mmol/L Chloride 104 (98-107) mmol/L Carbon Dioxide 32 (21-32) mmol/L Anion Gap 11 (3-11) BUN 25 H (6-23) mg/dl Creatinine 1.11 (0.6-1.4) mg/dl Est Cr Clr Drug Dosing Not Reportable Est GFR ( Amer) 81.5 ml/min Est GFR (Non-Af Amer) 70.3 ml/min BUN/Creatinine Ratio 22.5 H (10-20) Glucose 143 H (70-99(Fasting)) mg/dl POC Glucose (70-99) mg/dl Lactate 5.4 H* (0.4-2.0) mmol/L Calcium 7.6 L (8.5-10.1) mg/dl Magnesium 2.0 (1.7-2.4) mg/dl Total Bilirubin 0.9 (0.2-1.0) mg/dl Direct Bilirubin 0.4 H (0-0.2) mg/dl AST 92 H (13-39) U/L ALT 184 H (7-52) U/L Alkaline Phosphatase 452 H (34-104) U/L Ammonia (18-72) umol/L Troponin I High Sens 66.4 H* (0-20) pg/ml Total Protein 5.3 L (6.0-8.3) gm/dl Albumin 3.0 L (3.4-5.0) gm/dl Globulin (2.5-4.0) gm/dl Albumin/Globulin Ratio (0.9-2) Procalcitonin (0-0.5) ng/ml Urine Color Urine Appearance (Clear) Urine pH (4.5-7.5) Ur Specific Ramsay (1.000-1.030) Urine Protein (Negative) Urine Glucose (UA) (Negative) Urine Ketones (Negative) Urine Blood (Negative) Urine Nitrite (Negative) Urine Bilirubin (Negative) Urine Urobilinogen (Negative) Ur Leukocyte Esterase (Negative) Urine WBC (Auto) (0-5) /hpf Urine RBC (Auto) (0-4) /hpf U Hyaline Cast (Auto) (0-5) /lpf U Epithel Cells (Auto) (0-5) /lpf Urine Bacteria (Auto) (Negative) Urine Yeast SARS-CoV-2 (PCR) (Negative) Influenza Type A (PCR) (Neg) Influenza Type B (PCR) (Neg) RSV (RT-PCR) (Neg) 05/27/22 Range/Units 13:14 WBC 6.91 (4.8-10.8) K/ul RBC 2.50 L (4.63-6.08) M/uL Hgb 8.2 L (14.0-18.0) g/dl Hct 25.5 L (40.1-51.0) % MCV 102.0 H (80.0-100.0) fL MCH 32.8 (25.0-34.0) pg MCHC 32.2 (32.0-36.0) g/dL RDW Std Deviation 57.9 H (36.4-46.3) fL RDW Coeff of Alpa 16.1 H (11.5-14.5) % Plt Count 51 L (130-400) K/uL MPV 13.4 H (9.4-12.4) fL Immature Gran % (Auto) 7.5 % Neut % (Auto) 71.1 % Lymph % (Auto) 17.5 % [place] % (Auto) 3.6 % Eos % (Auto) 0.0 % Baso % (Auto) 0.3 % Neut # (Auto) 4.91 (1.4-6.5) K/uL Lymph # (Auto) 1.21 (1.2-3.4) K/uL [place] # (Auto) 0.25 (0.24-0.82) K/uL Eos # (Auto) 0.00 (0-0.50) K/uL Baso # (Auto) 0.02 (0-0.2) K/uL Immature Gran # (Auto) 0.52 H (0.00-0.02) K/uL Absolute Nucleated RBC 0.33 H (0-0) K/uL Nucleated RBC % (auto) 4.8 % Polychromasia 1+ Anisocytosis Present PT (9.0-12.0) Seconds INR (0.9-1.1) APTT (21.0-31.0) Seconds PTT Ratio VBG pH (7.36-7.41) VBG pCO2 (38-50) mmHg VBG pO2 mmHg VBG HCO3 mmol/L VBG O2 Saturation % VBG Base Excess mEq/L Sodium (136-145) mmol/L Potassium (3.5-5.1) mmol/L Chloride (98-107) mmol/L Carbon Dioxide (21-32) mmol/L Anion Gap (3-11) BUN (6-23) mg/dl Creatinine (0.6-1.4) mg/dl Est Cr Clr Drug Dosing Est GFR ( Amer) ml/min Est GFR (Non-Af Amer) ml/min BUN/Creatinine Ratio (10-20) Glucose (70-99(Fasting)) mg/dl POC Glucose (70-99) mg/dl Lactate (0.4-2.0) mmol/L Calcium (8.5-10.1) mg/dl Magnesium (1.7-2.4) mg/dl Total Bilirubin (0.2-1.0) mg/dl Direct Bilirubin (0-0.2) mg/dl AST (13-39) U/L ALT (7-52) U/L Alkaline Phosphatase (34-104) U/L Ammonia (18-72) umol/L Troponin I High Sens (0-20) pg/ml Total Protein (6.0-8.3) gm/dl Albumin (3.4-5.0) gm/dl Globulin (2.5-4.0) gm/dl Albumin/Globulin Ratio (0.9-2) Procalcitonin (0-0.5) ng/ml Urine Color Urine Appearance (Clear) Urine pH (4.5-7.5) Ur Specific Ramsay (1.000-1.030) Urine Protein (Negative) Urine Glucose (UA) (Negative) Urine Ketones (Negative) Urine Blood (Negative) Urine Nitrite (Negative) Urine Bilirubin (Negative) Urine Urobilinogen (Negative) Ur Leukocyte Esterase (Negative) Urine WBC (Auto) (0-5) /hpf Urine RBC (Auto) (0-4) /hpf U Hyaline Cast (Auto) (0-5) /lpf U Epithel Cells (Auto) (0-5) /lpf Urine Bacteria (Auto) (Negative) Urine Yeast SARS-CoV-2 (PCR) (Negative) Influenza Type A (PCR) (Neg) Influenza Type B (PCR) (Neg) RSV (RT-PCR) (Neg) Medications Administered Current Inpatient Medications Acetaminophen (Acetaminophen 325 Mg Tab) 650 mg PO Q4H PRN PRN Reason: Pain or Fever Stop: 06/26/22 19:06 Apixaban (Apixaban 5 Mg Tablet) 5 mg PO BID ESTUARDO Stop: 06/26/22 20:59 Last Admin: 05/27/22 22:04 Dose: Not Given Atorvastatin Calcium (Atorvastatin 40 Mg Tab) 40 mg PO HS ESTUARDO Stop: 06/26/22 20:59 Last Admin: 05/27/22 22:05 Dose: Not Given Dextrose (Dextrose 50% 50 Ml Syringe) 25 - 50 ml IV UD PRN; Protocol PRN Reason: Hypoglycemia Protocol Stop: 06/26/22 19:06 Folic Acid (Folic Acid 1 Mg Tab) 1 mg PO DAILY ESTUARDO Stop: 06/27/22 08:59 Furosemide (Furosemide 40 Mg Tab) 40 mg PO BID@0900,1600 ESTUARDO Stop: 06/26/22 20:59 Last Admin: 05/27/22 22:05 Dose: Not Given Furosemide (Furosemide Inj 20 Mg/2 Ml Vial) 20 mg IV [id number] ESTUARDO Stop: 06/27/22 08:59 Last Admin: 05/28/22 08:25 Dose: 20 mg Glucagon (Glucagon For Inj 1 Mg Vial) 1 mg SQ UD PRN; Protocol PRN Reason: Hypoglycemia Protocol Stop: 06/26/22 19:06 Glucose (Glucose 40% Gel 15 Gm Tube) 15 - 30 gm PO UD PRN; Protocol PRN Reason: Hypoglycemia Protocol Stop: 06/26/22 19:06 Glucose (Glucose 10 Tab/Tube) 4 - 8 tab PO UD PRN; Protocol PRN Reason: Hypoglycemia Treatment Stop: 06/26/22 19:06 Piperacillin Sod/Tazobactam (Sod 3.375 gm/ Dextrose) 115 mls @ 28.75 mls/hr IV Q8H [facility]; Protocol Stop: 06/07/22 01:59 Last Infusion: 05/28/22 06:50 Dose: Infused Albumin Human (Albumin 25% 100 Ml) 25 gm in 100 mls @ 50 mls/hr IV Q8H [facility] Last Infusion: 05/28/22 08:36 Dose: Infused Folic Acid 1 mg/ Syringe 10 mls @ 5 [facility]ls[facility] [place] Stop: 06/27/22 08:59 Last Admin: 05/28/22 08:26 Dose: 5 mls/min Thiamine HCl 100 mg/ Syringe 10 mls @ 2 mls[facility] [place] Stop: 06/27/22 08:59 Last Admin: 05/28/22 08:26 Dose: 2 mls/min Vancomycin HCl 1,000 mg/ (Sodium Chloride) 270 mls @ 200 mls/hr IV Q12H [facility]; Protocol Stop: 06/07/22 00:00 Last Infusion: 05/28/22 02:37 Dose: Infused Sodium Chloride (Nss) 250 mls @ 15 mls/hr IV .[id number] PRN PRN Reason: For Transfusion Duration Stop: 05/28/22 18:14 Potassium Chloride (K Nikunj / Wtr) 10 meq in 100 mls @ 100 mls/hr IV ONE ONE Stop: 05/28/22 09:29 Last Admin: 05/28/22 08:29 Dose: 100 mls/hr Insulin Aspart (Insulin Aspart Per Unit) 0 units SC Q6 [facility] Stop: 06/27/22 00:00 Last Admin: 05/28/22 06:28 Dose: Not Given Lactulose (Lactulose Syrup 10 Gm/15 Ml Btl 960 Ml) 10 gm PO BID [facility] Stop: 06/26/22 20:59 Last Admin: 05/27/22 22:06 Dose: Not Given Metoprolol Succinate (Metoprolol Succ 50mg Ext Rel Tab) 50 mg PO DAILY [facility] Stop: 06/27/22 08:59 Metoprolol Tartrate (Metoprolol Tartrate 1 Mg/Ml Vial) 2.5 mg IV Q6 [facility] Stop: 06/27/22 00:00 Last Admin: 05/28/22 06:17 Dose: 2.5 mg Miscellaneous (Carbohydrates For Hypoglycemia ) 15 - 30 gm PO UD PRN PRN Reason: Hypoglycemia Protocol Stop: 06/26/22 19:06 Miscellaneous Information (Vancomycin Consult Active) 1 each N/A UD PRN PRN Reason: Consult Stop: 06/26/22 14:08 Olanzapine (Olanzapine 10 Mg/2.1 Ml Sdv) 2.5 mg IM Q4H PRN PRN Reason: Agitation Stop: 06/26/22 21:14 Potassium Chloride (Potassium Chloride Crtab 20 Meq Tabcr) 40 meq PO BID ESTUARDO Stop: 06/26/22 20:59 Last Admin: 05/27/22 22:06 Dose: Not Given Risperidone (Risperidone 0.5 Mg Tablet) 0.25 mg PO Q8H [facility] Stop: 06/26/22 20:59 Last Admin: 05/27/22 22:06 Dose: Not Given Sacubitril/Valsartan (Valsartan/Sacubitril 26/24mg Tab) 1 tab PO Q12 ESTUARDO Stop: 06/26/22 20:59 Last Admin: 05/27/22 22:06 Dose: Not Given Sennosides (Senna 8.6 Mg Tab) 17.2 mg PO BID ESTUARDO Stop: 06/26/22 20:59 Last Admin: 05/27/22 22:06 Dose: Not Given Tamsulosin HCl (Tamsulosin Hcl 0.4 Mg Cap) 0.4 mg PO DAILY [facility] Stop: 06/27/22 08:59 Thiamine HCl (Thiamine Hcl 100 Mg Tab) 100 mg PO DAILY [facility] Stop: 06/27/22 08:59
[2022-05-28 07:43] LABS: Hematocrit (blood only) 19.8 % (40.1-51.0); Hemoglobin 6.4 g/dl (14.0-18.0); Mean Corpuscular Hgb Conc 32.3 g/dL (32.0-36.0); Mean Corpuscular Volume 102.1 fL (80.0-100.0); Mean Platelet Volume 12.5 fL (9.4-12.4); Nucleated RBC # (auto) 0.15 K/uL (0-0); Nucleated RBC % (auto) 2.6 %; Platelet Count 31 K/uL (130-400); RDW Standard Deviation 57.1 fL (36.4-46.3); Red Blood Count 1.94 M/uL (4.63-6.08); White Blood Count 5.85 K/ul (4.8-10.8)
[2022-05-28] MEDS ORDERED: SODIUM CHLORIDE 0.9% 250 ML IV PRN (08:14)
[2022-05-28] MEDS: FUROSEMIDE INJ 20 MG/2 ML VIAL IV SCH ×2 (08:25→17:59)
[2022-05-28] MEDS: FOLIC ACID 1 MG in SYRINGE 9.8 ML IV SCH (08:26)
[2022-05-28] MEDS: THIAMINE HCL 100 MG in SYRINGE 9 ML IV SCH (08:26)
[2022-05-28 08:27] LABS: ALC (manual) 1.35 K/uL (1.2-3.4); ANC (manual) 3.92 K/uL (1.4-6.5); Lymphocytes # (manual) 1.35 K/uL (1.2-3.4); Lymphocytes % (manual) 23 %; Metamyelocytes # (manual) 0.23 K/uL (0-0); Metamyelocytes % (manual) 4 %; Monocytes # (manual) 0.12 K/uL (0.24-0.82); Monocytes % (manual) 2 %; Myelocytes # (manual) 0.29 K/uL (0-0); Myelocytes % (manual) 5 %; Neutrophils # (manual) 3.92 K/uL (1.4-6.5); Neutrophils % (manual) 67 %
[2022-05-28] MEDS ORDERED: POTASSIUM CHLORIDE / WTR 10 MEQ/100 ML PLCT IV ONE (08:30)
[2022-05-28] MEDS ORDERED: TAMSULOSIN HCL 0.4 MG CAP PO SCH (09:00)
[2022-05-28] MEDS ORDERED: THIAMINE HCL 100 MG TAB PO SCH (09:00)
[2022-05-28] MEDS ORDERED: METOPROLOL SUCC 50MG EXT REL TAB PO SCH (09:00)
[2022-05-28] MEDS ORDERED: ENOXAPARIN 100 MG/1ML SYR SQ SCH (09:00)
[2022-05-28] MEDS ORDERED: FOLIC ACID 1 MG TAB PO SCH (09:00)
[2022-05-28] MEDS ORDERED: FUROSEMIDE INJ 20 MG/2 ML VIAL IV SCH (10:00)
--- NOTE | 2022-05-28 14:30 | Pharmacy Report ---
Pharmacy PK ABX Note - Date of Service May 28, 2022 - Assessment and Plan Assessment 62 year old M receiving vancomycin/zosyn for treatment of possible GIINF. Pertinent microbiologic data includes: Blood cultures negative at 24 hours, urine culture pending. Day # 2 of antimicrobial therapy. Plan Vancomycin * Loading dose: 2000 mg IV x 1 * Maintenance dose: 1000 mg IV every 12 hours * Regimen is predicted to achieve target AUC/JAMARI of 400-600 mg/L.hr * Trough ordered for 05/29 @ 1130 Pharmacy will continue to follow and will adjust dose/frequency as necessary. Thank you. Pharmacy has transitioned to AUC monitoring for vancomycin. AUC/JAMARI is the preferred PK/PD target and is associated with decreased risk of nephrotoxicity compared to traditional trough targets.
[2022-05-28 17:36] LABS: Hematocrit (blood only) 23.2 % (40.1-51.0); Hemoglobin 7.8 g/dl (14.0-18.0)
[2022-05-28 17:39] LABS: BUN Creatinine Ratio 18.6 (10-20); Calcium 7.6 mg/dl (8.5-10.1); Est GFR (African American) 90.2 ml/min; Est GFR (Non-African American) 77.9 ml/min
[2022-05-28] MEDS ORDERED: POTASSIUM CHLORIDE PWD 20 MEQ PACK PO ONE (18:46)
[2022-05-28] MEDS: POTASSIUM CHLORIDE / WTR 10 MEQ/100 ML PLCT IV SCH ×2 (20:40→21:35)
[2022-05-29] MEDS: PIPERACILLIN/TAZOBACTAM 3.375 GM in DEXTROSE 5% 100 ML IV SCH ×2 (02:31→08:55)
[2022-05-29] MEDS: INSULIN ASPART PER UNIT SC SCH ×4 (05:26→21:27)
[2022-05-29] MEDS: METOPROLOL TARTRATE 1 MG/ML VIAL IV SCH ×3 (05:26→18:28)
[2022-05-29 06:38] LABS: BUN Creatinine Ratio 21.5 (10-20); Calcium 7.6 mg/dl (8.5-10.1); Creatinine Clr Calc Pharmacy 79.2 ml/min; Est GFR (African American) 85.2 ml/min; Est GFR (Non-African American) 73.5 ml/min; Magnesium 1.9 mg/dl (1.7-2.4); Phosphorus 2.6 mg/dl (2.5-4.9); Potassium 3.5 mmol/L (3.5-5.1)
[2022-05-29 06:55] LABS: Hematocrit (blood only) 23.7 % (40.1-51.0); Hemoglobin 7.9 g/dl (14.0-18.0); Mean Corpuscular Hemoglobin 31.6 pg (25.0-34.0); Mean Corpuscular Hgb Conc 33.3 g/dL (32.0-36.0); Mean Corpuscular Volume 94.8 fL (80.0-100.0); Mean Platelet Volume 12.1 fL (9.4-12.4); Nucleated RBC # (auto) 0.17 K/uL (0-0); Nucleated RBC % (auto) 2.6 %; Platelet Count 24 K/uL (130-400); RDW Coefficient of Variation 18.1 % (11.5-14.5); RDW Standard Deviation 61.1 fL (36.4-46.3); White Blood Count 6.53 K/ul (4.8-10.8)
[2022-05-29] MEDS ORDERED: POTASSIUM CHLORIDE PWD 20 MEQ PACK PO ONE (07:22)
--- NOTE | 2022-05-29 07:22 | Hospitalist Progress Note ---
Date of Service May 29, 2022 Assessment & Plan (1) Acute hypotension: (2) Elevated lactic acid level: Plan: Patient presenting from [facility] for evaluation of hypotension/lethargy. BP improved in ED after albumin infusion. Please refer to HPI for details of recent hospital admissions. Possible sepsis. Noted to be afebrile, no leukocytosis. No obvious source identified at this time. Ucultx inconclusive, will repeat UA/urine culture. Noted history of MSSA UTI 04/2022. S/p cefepime and Vanco in the ED. Continued with Vanco and Zosyn -> will switch zosyn to cefepime+ flagyl Procalcitonin 31, lactate 5.4 --> 3.4 -> 1.1 (now normal) Follow cultures Blood cultx - negat. in 48 hrs (3) Metastatic disease: (4) Transaminitis: (5) Pancytopenia: Plan: CT ABD/pelvis shows signs of diffuse metastatic disease Labs show transaminitis which has been present since 04/2022 along with pancytopenia Trend CBC, transfuse PRN Discussed with GI and radiology, about biopsy of one of the lesionsultrasound- guided biopsy of liver lesions ordered Will need outpatient follow-up with oncology. Dr. Mccartney, [facility] onc., consulted while inpt. Given lethargy and transaminitis, checked ammonia level - 27 wnl. Patient on lactulose --will increase dose and give rectally if ammonia level significantly elevated. Consider GI consult Palliative care consult - discussed with significant other at bedside Anemia Hemoglobin on admission 8.2, on 05/28 Hgb 6.4, possibly due to IV fluids Obtained blood consent form Alis over the phone, as patient unable to participate in any meaningful conversation Transfused 1 unit PRBCs Thrombocytopenia On admission platelet count 51,000, now down to 24,000 Peripheral smear pathology review requested Discussed with Dr. Mccartney, heme-onc, possible decrease also secondary to Vanco and Zosyn combination however, clearly patient was thrombocytopenic already prior to giving any antibiotics If/when biopsy scheduled, will need platelet transfusion to have at least 50,000 plt count prior to biopsy Prognosis is guarded (6) Elevated troponin: Plan: Likely demand ischemia in the setting of acute illness, hypotension HS troponin 66.4 -> 71 ->63 (7) DM type 2 (diabetes mellitus, type 2): Plan: Hgb A1c 9.1 03/2022 NovoLog per protocol while hospitalized (8) Nonischemic cardiomyopathy: Plan: History of, EF resolved after aortic valve replacement EF 55 to 59% Echo 04/05/2022 Continue home dose Lasix, albumin as above (9) Paroxysmal atrial fibrillation: Plan: Rate controlled on metoprolol, anticoagulated on Eliquis Eliquis on hold now for thrombocytopenia (10) History of aortic valve replacement with bioprosthetic valve: Plan: Echo 04/05/2022-aortic valve prosthesis stenosis is absent (11) Chronic left arterial ischemic stroke, MCA (middle cerebral artery): Plan: In the setting of atrial fibrillation, Eliquis on hold as above DVT prophylaxis - Eliquis on hold CODE: DNR/DNI -after discussing with family, prognosis is guarded Admission and Anticipated Discharge Date Admission Date: May 27, 2022 Subjective Patient seen in follow-up of encephalopathy, hypotension, metastatic disease This morning, patient is lying in bed, in no acute distress He is resting comfortably, opens his eyes to voice, able to answer few simple questions appropriately, however again not participating in any further conversation. Transfused 1 unit PRBCs yesterday, hemoglobin stable Patient denies chest pain abdominal pain shortness of breath Review of Systems Review of Systems: All systems reviewed & are unremarkable except as noted in Subjective Physical Exam Physical Exam: Constitutional:L well developed, we ll nourished and + ill appearing; no acute distress Eyes: PERRL, conjunctiva e normal, anicteri c sclerae Faint b ilateral periorbit al ecchymosis note d ENMT: trauma to nose not ed Respiratory: normal respiratory effort; no respir atory distress Au scultation: + dimi nished lung sounds Cardiovascular:L Rate/Rhythm: regul ar rate and regula r rhythm Vessels: normal peripheral pulses Extremiti es: + edema (+2 pi tting edema BLE) Gastrointestinal ( Abdomen): normal bowel sound s, soft, nontender , +obese Musculoskeletal: Generally weak, no t participating in exam much Skin: no rashes, warm an d dry Psychiatric: Awakens to voice a nd touch, answers some but not able to answer all ques tions or participa te in conversation Results & Data Results & Data ([facility]) Vital Signs (Past 12 Hours) Vital Signs Temp Pulse Pulse Resp BP BP Pulse Ox 05/29/22 03:48 36.4 C L 90 18 137/84 93 05/28/22 22:00 80 05/28/22 20:00 05/28/22 23:49 94 H 141/79 H 05/28/22 22:42 36.7 C 94 H 18 141/79 H 92 O2 Del Method 05/29/22 03:48 Room Air 05/28/22 22:00 05/28/22 20:00 Room Air 05/28/22 23:49 05/28/22 22:42 Room Air Laboratory Results 05/29/22 05/29/22 05/29/22 Range/Units 05:28 05:28 05:16 WBC 6.53 (4.8-10.8) K/ul RBC 2.50 L (4.63-6.08) M/uL Hgb 7.9 L (14.0-18.0) g/dl Hct 23.7 L (40.1-51.0) % MCV 94.8 D (80.0-100.0) fL MCH 31.6 (25.0-34.0) pg MCHC 33.3 (32.0-36.0) g/dL RDW Std Deviation 61.1 H (36.4-46.3) fL RDW Coeff of Alpa 18.1 H (11.5-14.5) % Plt Count 24 L* (130-400) K/uL MPV 12.1 (9.4-12.4) fL Absolute Nucleated RBC 0.17 H (0-0) K/uL Nucleated RBC % (auto) 2.6 % Neutrophils % (Manual) % Lymphocytes % (Manual) % Monocytes % (Manual) % Metamyelocytes % (Man) % Myelocytes % (Man) % Neutrophils # (Manual) (1.4-6.5) K/uL Total Absolute Neuts (1.4-6.5) K/uL Lymphocytes # (Manual) (1.2-3.4) K/uL Total Abs Lymphocytes (1.2-3.4) K/uL Monocytes # (Manual) (0.24-0.82) K/uL Metamyelocytes # (Man) (0-0) K/uL Myelocytes # (Manual) (0-0) K/uL Sodium 146 H (136-145) mmol/L Potassium 3.5 (3.5-5.1) mmol/L Chloride 106 (98-107) mmol/L Carbon Dioxide 33 H (21-32) mmol/L Anion Gap 7 (3-11) BUN 23 (6-23) mg/dl Creatinine 1.07 (0.6-1.4) mg/dl Est Cr Clr Drug Dosing 79.2 ml/min Est GFR ( Amer) 85.2 ml/min Est GFR (Non-Af Amer) 73.5 ml/min BUN/Creatinine Ratio 21.5 H (10-20) Glucose 182 H (70-99(Fasting)) mg/dl POC Glucose 211 H (70-99) mg/dl Calcium 7.6 L (8.5-10.1) mg/dl Phosphorus 2.6 (2.5-4.9) mg/dl Magnesium 1.9 (1.7-2.4) mg/dl Total Bilirubin (0.2-1.0) mg/dl AST (13-39) U/L ALT (7-52) U/L Alkaline Phosphatase (34-104) U/L Ammonia (18-72) umol/L Total Protein (6.0-8.3) gm/dl Albumin (3.4-5.0) gm/dl Globulin (2.5-4.0) gm/dl Albumin/Globulin Ratio (0.9-2) Nasal Screen MRSA (PCR) (Negative) Blood Type Blood Type Recheck Antibody Screen Crossmatch 05/28/22 05/28/22 05/28/22 Range/Units 23:32 17:50 17:13 WBC (4.8-10.8) K/ul RBC (4.63-6.08) M/uL Hgb (14.0-18.0) g/dl Hct (40.1-51.0) % MCV (80.0-100.0) fL MCH (25.0-34.0) pg MCHC (32.0-36.0) g/dL RDW Std Deviation (36.4-46.3) fL RDW Coeff of Alpa (11.5-14.5) % Plt Count (130-400) K/uL MPV (9.4-12.4) fL Absolute Nucleated RBC (0-0) K/uL Nucleated RBC % (auto) % Neutrophils % (Manual) % Lymphocytes % (Manual) % Monocytes % (Manual) % Metamyelocytes % (Man) % Myelocytes % (Man) % Neutrophils # (Manual) (1.4-6.5) K/uL Total Absolute Neuts (1.4-6.5) K/uL Lymphocytes # (Manual) (1.2-3.4) K/uL Total Abs Lymphocytes (1.2-3.4) K/uL Monocytes # (Manual) (0.24-0.82) K/uL Metamyelocytes # (Man) (0-0) K/uL Myelocytes # (Manual) (0-0) K/uL Sodium 149 H (136-145) mmol/L Potassium 3.0 L (3.5-5.1) mmol/L Chloride 107 (98-107) mmol/L Carbon Dioxide 34 H (21-32) mmol/L Anion Gap 8 (3-11) BUN 19 (6-23) mg/dl Creatinine 1.02 (0.6-1.4) mg/dl Est Cr Clr Drug Dosing 83.0 ml/min Est GFR ( Amer) 90.2 ml/min Est GFR (Non-Af Amer) 77.9 ml/min BUN/Creatinine Ratio 18.6 (10-20) Glucose 137 H (70-99(Fasting)) mg/dl POC Glucose 298 H 150 H (70-99) mg/dl Calcium 7.6 L (8.5-10.1) mg/dl Phosphorus (2.5-4.9) mg/dl Magnesium (1.7-2.4) mg/dl Total Bilirubin (0.2-1.0) mg/dl AST (13-39) U/L ALT (7-52) U/L Alkaline Phosphatase (34-104) U/L Ammonia (18-72) umol/L Total Protein (6.0-8.3) gm/dl Albumin (3.4-5.0) gm/dl Globulin (2.5-4.0) gm/dl Albumin/Globulin Ratio (0.9-2) Nasal Screen MRSA (PCR) (Negative) Blood Type Blood Type Recheck Antibody Screen Crossmatch 05/28/22 05/28/22 05/28/22 Range/Units 17:13 16:22 12:30 WBC (4.8-10.8) K/ul RBC (4.63-6.08) M/uL Hgb 7.8 L (14.0-18.0) g/dl Hct 23.2 L (40.1-51.0) % MCV (80.0-100.0) fL MCH (25.0-34.0) pg MCHC (32.0-36.0) g/dL RDW Std Deviation (36.4-46.3) fL RDW Coeff of Alpa (11.5-14.5) % Plt Count (130-400) K/uL MPV (9.4-12.4) fL Absolute Nucleated RBC (0-0) K/uL Nucleated RBC % (auto) % Neutrophils % (Manual) % Lymphocytes % (Manual) % Monocytes % (Manual) % Metamyelocytes % (Man) % Myelocytes % (Man) % Neutrophils # (Manual) (1.4-6.5) K/uL Total Absolute Neuts (1.4-6.5) K/uL Lymphocytes # (Manual) (1.2-3.4) K/uL Total Abs Lymphocytes (1.2-3.4) K/uL Monocytes # (Manual) (0.24-0.82) K/uL Metamyelocytes # (Man) (0-0) K/uL Myelocytes # (Manual) (0-0) K/uL Sodium (136-145) mmol/L Potassium (3.5-5.1) mmol/L Chloride (98-107) mmol/L Carbon Dioxide (21-32) mmol/L Anion Gap (3-11) BUN (6-23) mg/dl Creatinine (0.6-1.4) mg/dl Est Cr Clr Drug Dosing ml/min Est GFR ( Amer) ml/min Est GFR (Non-Af Amer) ml/min BUN/Creatinine Ratio (10-20) Glucose (70-99(Fasting)) mg/dl POC Glucose 176 H (70-99) mg/dl Calcium (8.5-10.1) mg/dl Phosphorus (2.5-4.9) mg/dl Magnesium (1.7-2.4) mg/dl Total Bilirubin (0.2-1.0) mg/dl AST (13-39) U/L ALT (7-52) U/L Alkaline Phosphatase (34-104) U/L Ammonia (18-72) umol/L Total Protein (6.0-8.3) gm/dl Albumin (3.4-5.0) gm/dl Globulin (2.5-4.0) gm/dl Albumin/Globulin Ratio (0.9-2) Nasal Screen MRSA (PCR) Negative (Negative) Blood Type Blood Type Recheck Antibody Screen Crossmatch 05/28/22 05/28/22 05/28/22 Range/Units 09:41 06:59 06:59 WBC (4.8-10.8) K/ul RBC (4.63-6.08) M/uL Hgb (14.0-18.0) g/dl Hct (40.1-51.0) % MCV (80.0-100.0) fL MCH (25.0-34.0) pg MCHC (32.0-36.0) g/dL RDW Std Deviation (36.4-46.3) fL RDW Coeff of Alpa (11.5-14.5) % Plt Count (130-400) K/uL MPV (9.4-12.4) fL Absolute Nucleated RBC (0-0) K/uL Nucleated RBC % (auto) % Neutrophils % (Manual) % Lymphocytes % (Manual) % Monocytes % (Manual) % Metamyelocytes % (Man) % Myelocytes % (Man) % Neutrophils # (Manual) (1.4-6.5) K/uL Total Absolute Neuts (1.4-6.5) K/uL Lymphocytes # (Manual) (1.2-3.4) K/uL Total Abs Lymphocytes (1.2-3.4) K/uL Monocytes # (Manual) (0.24-0.82) K/uL Metamyelocytes # (Man) (0-0) K/uL Myelocytes # (Manual) (0-0) K/uL Sodium (136-145) mmol/L Potassium (3.5-5.1) mmol/L Chloride (98-107) mmol/L Carbon Dioxide (21-32) mmol/L Anion Gap (3-11) BUN (6-23) mg/dl Creatinine (0.6-1.4) mg/dl Est Cr Clr Drug Dosing ml/min Est GFR ( Amer) ml/min Est GFR (Non-Af Amer) ml/min BUN/Creatinine Ratio (10-20) Glucose (70-99(Fasting)) mg/dl POC Glucose (70-99) mg/dl Calcium (8.5-10.1) mg/dl Phosphorus (2.5-4.9) mg/dl Magnesium (1.7-2.4) mg/dl Total Bilirubin (0.2-1.0) mg/dl AST (13-39) U/L ALT (7-52) U/L Alkaline Phosphatase (34-104) U/L Ammonia 33.0 (18-72) umol/L Total Protein (6.0-8.3) gm/dl Albumin (3.4-5.0) gm/dl Globulin (2.5-4.0) gm/dl Albumin/Globulin Ratio (0.9-2) Nasal Screen MRSA (PCR) (Negative) Blood Type A Positive Blood Type Recheck A Positive Antibody Screen NEGATIVE Crossmatch See Detail 05/28/22 05/28/22 Range/Units 06:59 06:59 WBC 5.85 (4.8-10.8) K/ul RBC 1.94 L (4.63-6.08) M/uL Hgb 6.4 L* (14.0-18.0) g/dl Hct 19.8 L* (40.1-51.0) % MCV 102.1 H (80.0-100.0) fL MCH 33.0 (25.0-34.0) pg MCHC 32.3 (32.0-36.0) g/dL RDW Std Deviation 57.1 H (36.4-46.3) fL RDW Coeff of Alpa 16.0 H (11.5-14.5) % Plt Count 31 L (130-400) K/uL MPV 12.5 H (9.4-12.4) fL Absolute Nucleated RBC 0.15 H (0-0) K/uL Nucleated RBC % (auto) 2.6 % Neutrophils % (Manual) 67 % Lymphocytes % (Manual) 23 % Monocytes % (Manual) 2 % Metamyelocytes % (Man) 4 % Myelocytes % (Man) 5 % Neutrophils # (Manual) 3.92 (1.4-6.5) K/uL Total Absolute Neuts 3.92 (1.4-6.5) K/uL Lymphocytes # (Manual) 1.35 (1.2-3.4) K/uL Total Abs Lymphocytes 1.35 (1.2-3.4) K/uL Monocytes # (Manual) 0.12 L (0.24-0.82) K/uL Metamyelocytes # (Man) 0.23 H (0-0) K/uL Myelocytes # (Manual) 0.29 H (0-0) K/uL Sodium 149 H (136-145) mmol/L Potassium 3.5 (3.5-5.1) mmol/L Chloride 108 H (98-107) mmol/L Carbon Dioxide 35 H (21-32) mmol/L Anion Gap 6 (3-11) BUN 21 (6-23) mg/dl Creatinine 1.07 (0.6-1.4) mg/dl Est Cr Clr Drug Dosing 73.0 ml/min Est GFR ( Amer) 85.2 ml/min Est GFR (Non-Af Amer) 73.5 ml/min BUN/Creatinine Ratio 19.6 (10-20) Glucose 115 H (70-99(Fasting)) mg/dl POC Glucose (70-99) mg/dl Calcium 7.6 L (8.5-10.1) mg/dl Phosphorus (2.5-4.9) mg/dl Magnesium (1.7-2.4) mg/dl Total Bilirubin 1.1 H (0.2-1.0) mg/dl AST 89 H (13-39) U/L ALT 147 H (7-52) U/L Alkaline Phosphatase 322 H (34-104) U/L Ammonia (18-72) umol/L Total Protein 5.1 L (6.0-8.3) gm/dl Albumin 3.3 L (3.4-5.0) gm/dl Globulin 1.8 L (2.5-4.0) gm/dl Albumin/Globulin Ratio 1.8 (0.9-2) Nasal Screen MRSA (PCR) (Negative) Blood Type Blood Type Recheck Antibody Screen Crossmatch Medications Administered Current Inpatient Medications Acetaminophen (Acetaminophen 325 Mg Tab) 650 mg PO Q4H PRN PRN Reason: Pain or Fever Stop: 06/26/22 19:06 Apixaban (Apixaban 5 Mg Tablet) 5 mg PO BID ESTUARDO Stop: 06/26/22 20:59 Last Admin: 05/27/22 22:04 Dose: Not Given Atorvastatin Calcium (Atorvastatin 40 Mg Tab) 40 mg PO HS [facility] Stop: 06/26/22 20:59 Last Admin: 05/27/22 22:05 Dose: Not Given Dextrose (Dextrose 50% 50 Ml Syringe) 25 - 50 ml IV UD PRN; Protocol PRN Reason: Hypoglycemia Protocol Stop: 06/26/22 19:06 Folic Acid (Folic Acid 1 Mg Tab) 1 mg PO DAILY [facility] Stop: 06/27/22 08:59 Furosemide (Furosemide 40 Mg Tab) 40 mg PO BID@0900,1600 [facility] Stop: 06/26/22 20:59 Last Admin: 05/27/22 22:05 Dose: Not Given Furosemide (Furosemide Inj 20 Mg/2 Ml Vial) 20 mg IV BID17 [facility] Stop: 06/27/22 08:59 Last Admin: 05/29/22 08:05 Dose: 20 mg Glucagon (Glucagon For Inj 1 Mg Vial) 1 mg SQ UD PRN; Protocol PRN Reason: Hypoglycemia Protocol Stop: 06/26/22 19:06 Glucose (Glucose 40% Gel 15 Gm Tube) 15 - 30 gm PO UD PRN; Protocol PRN Reason: Hypoglycemia Protocol Stop: 06/26/22 19:06 Glucose (Glucose 10 Tab/Tube) 4 - 8 tab PO UD PRN; Protocol PRN Reason: Hypoglycemia Treatment Stop: 06/26/22 19:06 Albumin Human (Albumin 25% 100 Ml) 25 gm in 100 mls @ 50 mls/hr IV Q8H [facility] Last Infusion: 05/28/22 08:36 Dose: Infused Folic Acid 1 mg/ Syringe 10 mls @ 5 mls/min IV QAM [facility] Stop: 06/27/22 08:59 Last Admin: 05/29/22 08:05 Dose: 5 mls/min Thiamine HCl 100 mg/ Syringe 10 mls @ 2 mls/min IV QAM [facility] Stop: 06/27/22 08:59 Last Admin: 05/29/22 08:05 Dose: 2 mls/min Vancomycin HCl 1,000 mg/ (Sodium Chloride) 270 mls @ 200 mls/hr IV Q12H [facility]; Protocol Stop: 06/07/22 00:00 Last Admin: 05/29/22 13:23 Dose: 200 mls/hr Cefepime HCl 2,000 mg/ Syringe 20 mls @ 5 mls/min IV Q8H [facility] Stop: 06/08/22 14:59 Metronidazole (Flagyl) 500 mg in 100 mls @ 100 mls/hr IV Q8H [facility] Stop: 06/08/22 14:59 Insulin Aspart (Insulin Aspart Per Unit) 0 units SC ACHS [facility] Stop: 06/28/22 11:29 Last Admin: 05/29/22 13:20 Dose: 14 units Insulin Glargine (Lantus Per Unit Charge) 27 units SQ HS [facility] Stop: 06/28/22 20:59 Lactulose (Lactulose Syrup 10 Gm/15 Ml Btl 960 Ml) 10 gm PO BID [facility] Stop: 06/26/22 20:59 Last Admin: 05/27/22 22:06 Dose: Not Given Metoprolol Succinate (Metoprolol Succ 50mg Ext Rel Tab) 50 mg PO DAILY [facility] Stop: 06/27/22 08:59 Metoprolol Tartrate (Metoprolol Tartrate 1 Mg/Ml Vial) 2.5 mg IV Q6 [facility] Stop: 06/27/22 00:00 Last Admin: 05/29/22 11:09 Dose: 2.5 mg Miscellaneous (Carbohydrates For Hypoglycemia ) 15 - 30 gm PO UD PRN PRN Reason: Hypoglycemia Protocol Stop: 06/26/22 19:06 Miscellaneous Information (Vancomycin Consult Active) 1 each N/A UD PRN PRN Reason: Consult Stop: 06/26/22 14:08 Miscellaneous Information (Pharmacy Glycemic Mgmt Consult) 1 each N/A UD PRN; Protocol PRN Reason: Consult Stop: 06/28/22 11:43 Olanzapine (Olanzapine 10 Mg/2.1 Ml Sdv) 2.5 mg IM Q4H PRN PRN Reason: Agitation Stop: 06/26/22 21:14 Potassium Chloride (Potassium Chloride Crtab 20 Meq Tabcr) 40 meq PO BID [facility] Stop: 06/26/22 20:59 Last Admin: 05/27/22 22:06 Dose: Not Given Risperidone (Risperidone 0.5 Mg Tablet) 0.25 mg PO Q8H [facility] Stop: 06/26/22 20:59 Last Admin: 05/27/22 22:06 Dose: Not Given Sacubitril/Valsartan (Valsartan/Sacubitril 26/24mg Tab) 1 tab PO Q12 [facility] Stop: 06/26/22 20:59 Last Admin: 05/27/22 22:06 Dose: Not Given Sennosides (Senna 8.6 Mg Tab) 17.2 mg PO BID [facility] Stop: 06/26/22 20:59 Last Admin: 05/27/22 22:06 Dose: Not Given Tamsulosin HCl (Tamsulosin Hcl 0.4 Mg Cap) 0.4 mg PO DAILY [facility] Stop: 06/27/22 08:59 Thiamine HCl (Thiamine Hcl 100 Mg Tab) 100 mg PO DAILY [facility] Stop: 06/27/22 08:59
[2022-05-29] MEDS: FOLIC ACID 1 MG in SYRINGE 9.8 ML IV SCH (08:05)
[2022-05-29] MEDS: FUROSEMIDE INJ 20 MG/2 ML VIAL IV SCH ×2 (08:05→18:27)
[2022-05-29] MEDS: THIAMINE HCL 100 MG in SYRINGE 9 ML IV SCH (08:05)
[2022-05-29 08:13] LABS: INR 1.1 (0.9-1.1); Prothrombin Time 11.9 Seconds (9.0-12.0)
[2022-05-29] MEDS ORDERED: Nursing to Pharmacy Communication SCH (09:15)
[2022-05-29] MEDS ORDERED: PHARMACY GLYCEMIC MGMT CONSULT PRN (11:44)
[2022-05-29] MEDS ORDERED: LANTUS PER UNIT CHARGE SQ ONE (12:15)
[2022-05-29] MEDS: VANCOMYCIN HCL 1,000 MG in SODIUM CHLORIDE 0.9% 250 ML IV SCH (13:23)
--- NOTE | 2022-05-29 14:26 | Pharmacy Report ---
Pharmacy Glycemic Short Note 2 - Date of Service May 29, 2022 - Glycemic Short BSG Results (Last 24 hours): 05/28/22 05/28/22 05/28/22 17:13 17:50 23:32 Glucose 137 H POC Glucose 150 H 298 H 05/29/22 05/29/22 05/29/22 05:16 05:28 11:34 Glucose 182 H POC Glucose 211 H 331 H* 05/29/22 11:35 Glucose POC Glucose 335 H* OUTPATIENT ANTIDIABETIC REGIMEN: * Jardiance 25 mg PO daily * Lantus 27 units HS * Novolog 10 units TIDM ASSESSMENT: * Mr Duron is a 62 y/o M with a PMH of T2DM who presents with acute hypotension. * Patient's BSGs yesterday were [phone] mg/dL. Patient received 11 units of bolus insulin. * Today's BSGs are 211- 331/335 mg/dL. * Give patient's home dose of Lantus now then HS. Patient did not receive Lantus on 05/28/21. * Tighten Novolog to weight-based stress of 3 for now. PLAN FOR INPATIENT GLYCEMIC CONTROL: * Hold outpatient oral diabetes medications * Basal insulin * Lantus 27 units SQ HS * Bolus insulin * NovoLog per scale ACHS or Q6hrs while NPO * Goal Range: Low 110 mg/dL - High 140 mg/dL * Correction Factor: 25 mg/dL/unit * Nutritional / Prandial insulin per carb ratio of 1 unit per 6 grams CHO consumed
--- NOTE | 2022-05-29 14:40 | Pharmacy Report ---
Pharmacy PK ABX Note - Date of Service May 29, 2022 - Assessment and Plan Assessment 05/29: Patient remains afebrile, normal white count, no source of infection currently identified, hypotension resolved. Discussed with hospitalist possible de-escalation, would like to continue broad spectrum antibiotics at this time given extensive metastatic disease but will change zosyn to cefepime/flagyl to lessen nephrotoxicity risk with vanco/zosyn combination. 05/28 62 year old M receiving vancomycin/zosyn for treatment of possible GIINF. Pertinent microbiologic data includes: Blood cultures negative at 24 hours, urine culture pending. Day # 2 of antimicrobial therapy. Plan 05/29: Trough 15.1 today, this predicts achievement of target AUC/JAMARI Continue current dose 1000 mg q12H Additional level in 2-3 days if continued or with renal function changes 05/28: Vancomycin * Loading dose: 2000 mg IV x 1 * Maintenance dose: 1000 mg IV every 12 hours * Regimen is predicted to achieve target AUC/JAMARI of 400-600 mg/L.hr * Trough ordered for 05/29 @ 1130 Pharmacy will continue to follow and will adjust dose/frequency as necessary. Thank you. Pharmacy has transitioned to AUC monitoring for vancomycin. AUC/JAMARI is the preferred PK/PD target and is associated with decreased risk of nephrotoxicity compared to traditional trough targets.
[2022-05-29] MEDS: CEFEPIME 2,000 MG in SYRINGE 0 ML IV SCH ×2 (14:55→22:02)
[2022-05-29 15:33] LABS: Appearance Urine Clear (Clear); Bacteria Urine Automated Negative (Negative); Bilirubin Urine Negative (Negative); Blood Urine 1+ (Negative); Cast Urine Automated 0 /lpf (0-5); Color Urine Yellow; Glucose Urine UA 3+ (Negative); Ketones Urine Trace (Negative); Leukocyte Esterase Urine Negative (Negative); Nitrite Urine Negative (Negative); Protein Urine 1+ (Negative); Specific Gravity Urine 1.027 (1.000-1.030); Urobilinogen Urine Negative (Negative); pH Urine 5.5 (4.5-7.5)
[2022-05-29] MEDS: metroNIDAZOLE 500 MG/100 ML BAG IV SCH ×2 (16:30→22:03)
--- NOTE | 2022-05-29 19:37 | Consultation ---
Date of Consultation May 29, 2022 Assessment & Plan (1) Pancytopenia: Patient presents with pancytopenia (anemia/thrombocytopenia) and widespread likely metastatic malignancy. Notably he did receive vancomycin and piperacillin on admission which are not infrequently associated with drug- induced thrombocytopenia though the thrombocytopenia clearly existed on admission and has in evolved a little bit more quickly than one might expect based on a drug-induced process. Nevertheless, those medications may exacerbate the thrombocytopenia or delay its recovery. There have been some question of sepsis on admission but apparently that is less clearly present on retrospective review. Certainly DIC might be associated with a microangiopathic process. Have requested reticulocyte count and LDH though notably the bilirubin and creatinine are normal which suggests against major hemolysis and also against classic forward florid MAHA. There is no specific reason to suspect a primary blood disorder and he does have historically normal blood counts from blood work available 2 years ago. Certainly could have had an intervening evolution of MDS but given the widespread metastatic pattern I would be most concerned about marrow involvement with what ever malignant process underlies those radiologic changes. Pending pathologist review of peripheral smear may help to identify any more specific primary hematologic abnormalities Practically, the immediate question is how to best address the thrombocytopenia in anticipation of possible needle tissue sampling for diagnosis of metastatic malignancy. Ideally, platelet counts above 50,000 should be adequate for a needle biopsy though achieving that does not guarantee against bleeding which can be a consequence of other factors besides platelet count alone. Transfusion may accomplish an adequate rise transiently but does not entirely mitigate the bleeding risk that might be associated with biopsy. Patient is receiving empiric folic acid, I have put in for iron studies, B12 assessment, LDH, and reticulocyte count. If we are being aggressive with his further care, may need to consider marrow aspiration biopsy to best define source of the anemia and thrombocytopenia as that will figure into both a broader prognostic assessment but also specifically may impact optimal overall management decision making. Anticoagulation for his atrial fibrillation is appropriately on hold. Resumption of full anticoagulation would also require platelet count over 50,000. Experience from the [facility] (mignon Davies al. J Thromb Thrombolysis 2017; 43 (4): 514-518. doi 10.1007/[id number].) Found reasonable safety with "half dose" enoxaparin for platelets between 25 and 50,000 in adult cancer patients with venous thromboembolism. That experience has been used to offer the potential approach of half dose enoxaparin and wider application of anticoagulation for patients with moderate to severe thrombocytopenia about 25,000 though the generalizability of the protocol is not completely established. (2) Metastatic disease: Patient presents with a radiologically widespread metastatic pattern with pathologic mediastinal and hilar adenopathy though no discrete lung lesions. There is an axillary tissue deposit and what looks like possible peritoneal deposits. There is widespread apparent liver metastases and as well adrenal metastases. In a former smoker, 1 would certainly think about a primary lung cancer which may manifest as mediastinal adenopathy without a clearly defined lung primary especially in small cell lung cancer. Obviously non-small cell lung cancer is also in differential diagnosis. There are no other primary sites immediately notified by the CT scans though certainly we do not have definitive establishment of a lung primary. Formal biopsy would be important in understanding more precisely the histology and framing prognostic and treatment option discussions. The major question, however, is whether there is any diagnosis that we would find for which we would initiate treatment now in a gentleman with significantly compromised performance status and pancytopenia. Even a chemotherapy responsive malignancy like a small cell lung cancer requires at least a moderately intact performance status and hematologic profile as a foundation for effective treatment. This does not all have the appearance of a lymphoma or a "curable" malignancy and what ever we find is likely to at best to be stabilized GI chemotherapy with the degree and duration response uncertain.. Even if somehow we were able to proceed forward with treatment, his performance status and prognosis with respect to his cerebrovascular, atrial fibrillation, and other medical issues raised significant concern as to whether he would be able to achieve and sustain sufficient quality of life to make the dangers and toxicities of chemotherapy worthwhile. Admittedly, a diagnosis of non-small cell lung cancer might offer immune checkpoint inhibitor or targeted therapy options but those are not w ithout their own toxicities and, again, even in the most stan scenarios we would do no more than bring him back to his already apparently compromised quality of life. Plan 1. If it is deemed critical to proceed with a biopsy to best understand the source of his apparent metastatic disease and make best determinations as to prognosis and treatment, would attempt to achieve a platelet count of 50,000 with transfusion shortly before the procedure though doing so does not guarantee that no bleeding will occur 2. Nutritional work-up is pending as is pathology review of the peripheral smear. May need marrow aspiration biopsy to best understand the presentation with anemia and thrombocytopenia. As there is increasing doubt as to the presence of a true sepsis, that would also decrease the suspicion of DIC. While vancomycin and Zosyn are not the primary cause of the thrombocytopenia, they could contribute to its persistence and if there are other antibiotics that can be substituted that would be preferable so long as that does not compromise the treatment of any anticipated major infection 3. Needs a fundamental prognosis and quality of life assessment based on the known issues of previous stroke and ongoing cardiovascular issues. Question is whether making a specific diagnosis of the metastatic malignancy would truly lead to opportunities for any treatment with a sufficiently high likelihood of response and durability of that response to justify the potential toxicity of that treatment and in turn the potential morbidity or even mortality of a biopsy attempt. Does his almost unequivocal diagnosis of metastatic malignancy superimposed on his other medical challenges constitute a "big picture" assessment that a more conservative/palliative care approach may be most appropriate? 4. Resumption of full dose anticoagulation with respect to his atrial fibrillation would have to await achievement of a sustained platelet count greater than 50,000. Per the above cited reference from [facility], could consider half dose enoxaparin (0.5 mg/kg subcutaneously twice daily) as an interim measure so long as platelets remain in the 25-50,000 range if anticoagulation is felt to be critically important and in shared decision-making the patient and his family understand that there still could be significant bleeding risks. History of Present Illness Reason for Consultation: Pancytopenia, radiologic appearance of widespread metastatic malignancy in a patient with significant pre-existing atherosclerotic issues including previous left MCA CVA and atrial fibrillation/CHF. Attending Physician: True Stern MD History of Present Illness This is an electronic consultation only. Assessment is based on review of the electronic chart, direct conversation with the hospitalist team caring for the patient. 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 He has had a series of rehab stays but by descriptions has had significant compromise performance status tracing back to the March CVA. Admitted with hypotension and significant anemia/thrombocytopenia. He did receive empiric vancomycin and piperacillin/tazobactam on admission for concern of sepsis. Allergies Allergy/AdvReac Type Severity Reaction Status Date / Time rabbit dander Allergy Mild Watery Eye Verified 05/27/22 15:34 ragweed pollen Allergy Mild Watery Eye Verified 05/27/22 15:34 Iodinated Contrast Media AdvReac Intermediate Vomiting Verified 05/27/22 15:34 Home Medications Medication Instructions Recorded Confirmed Type tamsulosin 0.4 mg capsule (Flomax) 0.4 mg PO DAILY 02/12/20 05/27/22 History acetaminophen 325 mg tablet 650 mg PO Q4H PRN Pain 05/27/22 05/27/22 History (Tylenol) apixaban 5 mg tablet (Eliquis) 5 mg PO BID 05/27/22 05/27/22 History atorvastatin 40 mg tablet 40 mg PO HS 05/27/22 05/27/22 History bacitracin 500 unit/gram topical 1 applic topical BID 05/27/22 05/27/22 History ointment bisacodyl 10 mg rectal suppository 10 mg IA DAILY PRN Constipation 05/27/22 05/27/22 History clotrimazole 1 % topical cream 1 applic topical BID 05/27/22 05/27/22 History (Clotrimazole AF) empagliflozin 25 mg tablet 25 mg PO QAM 05/27/22 05/27/22 History (Jardiance) folic acid 1 mg tablet 1 mg PO DAILY 05/27/22 05/27/22 History furosemide 40 mg tablet (Lasix) 40 mg PO BID 05/27/22 05/27/22 History insulin aspart U-100 100 unit/mL 10 unit subcut TIDM 05/27/22 05/27/22 History subcutaneous solution insulin glargine 100 unit/mL 27 unit subcut HS 05/27/22 05/27/22 History subcutaneous solution (Lantus U-100 Insulin) lactulose 10 gram/15 mL oral 10 g PO BID 05/27/22 05/27/22 History solution magnesium hydroxide 400 mg/5 mL 30 ml PO DAILY PRN Constipation 05/27/22 05/27/22 History oral suspension (Milk of Magnesia) melatonin 3 mg tablet 9 mg PO HS 05/27/22 05/27/22 History metoprolol succinate 50 mg 50 mg PO DAILY 05/27/22 05/27/22 History tablet,extended release 24 hr multivitamin with minerals 1 tab PO DAILY 05/27/22 05/27/22 History ondansetron HCl 4 mg tablet 4 mg PO Q4H PRN NAUSEA/VOMITING 05/27/22 05/27/22 History polyethylene glycol 3350 17 17 g PO QDL PRN Constipation 05/27/22 05/27/22 History gram/dose oral powder (Miralax) potassium chloride 20 mEq 40 meq PO BID 05/27/22 05/27/22 History tablet,extended release risperidone 0.25 mg tablet 0.25 mg PO Q8H 05/27/22 05/27/22 History sacubitril 24 mg-valsartan 26 mg 1 tab PO Q12H 05/27/22 05/27/22 History tablet (Entresto) sennosides 8.6 mg tablet (senna) 17.2 mg PO BID 05/27/22 05/27/22 History sennosides 8.6 mg-docusate sodium 1 tab-cap PO QDL PRN Constipation 05/27/22 05/27/22 History 50 mg tablet (Senokot-S) thiamine HCl (vitamin B1) 100 mg 100 mg PO DAILY 05/27/22 05/27/22 History tablet Patient History Medical History BPH (benign prostatic hyperplasia) Chronic left arterial ischemic stroke, MCA (middle cerebral artery) DM type 2 (diabetes mellitus, type 2) HLD (hyperlipidemia) HTN (hypertension) Nonischemic cardiomyopathy PAD (peripheral artery disease) Paroxysmal atrial fibrillation Surgical History (Updated 05/27/22 @ 18:35 by MADDIE Gaytan) History of aortic valve replacement with bioprosthetic valve Family History Mother Cancer Father Heart valve replaced Social History Smoking Status: Former smoker Cigarettes Per Day: 2; Second Hand Exposure: No; Do You Dip or Chew Tobacco: No; Tobacco Cessation Education Requested by Patient: No Hx Alcohol Use: Yes Alcohol type: beer Hx Substance Use: No Preferred Language: Citizen Of [place] Communication Ability: Effective Administrative Professional Required: No Beliefs That Will Affect Care: None marital status: Single Current Living Situation: Significant Other Other Information That Helps Us Care for You: No Feels Safe at Home: Yes Safety Concerns: Feels Safe At This Time Assistive Devices: Oxygen - Continuous Physical Exam Physical Exam: Listed vital signs still show a moderate hypotension though he is oxygenating well, not tachycardic, afebrile Examination was not performed as this is an electronic consult. See admission history and physical and hospitalist progress notes Results & Data ([facility]) Vital Signs (Past 12 Hours) Vital Signs Temp Pulse Pulse Resp BP BP Pulse Ox 05/29/22 19:24 36.5 C 90 20 97/69 L 94 05/29/22 14:07 96 H 05/29/22 15:56 36.4 C L 83 20 148/81 H 93 05/29/22 11:38 36.4 C L 93 H 18 109/74 91 05/29/22 08:00 05/29/22 11:09 96 H 112/75 05/29/22 08:02 36.7 C 89 16 133/88 91 O2 Del Method 05/29/22 19:24 Room Air 05/29/22 14:07 05/29/22 15:56 Room Air 05/29/22 11:38 Room Air 05/29/22 08:00 Room Air 05/29/22 11:09 05/29/22 08:02 Room Air Laboratory Results Abnormal lab results 05/28/22 05/29/22 05/29/22 Range/Units 23:32 05:16 05:28 RBC (4.63-6.08) M/uL Hgb (14.0-18.0) g/dl Hct (40.1-51.0) % RDW Std Deviation (36.4-46.3) fL RDW Coeff of Alpa (11.5-14.5) % Plt Count (130-400) K/uL Absolute Nucleated RBC (0-0) K/uL Sodium 146 H (136-145) mmol/L Carbon Dioxide 33 H (21-32) mmol/L BUN/Creatinine Ratio 21.5 H (10-20) Glucose 182 H (70-99(Fasting)) mg/dl POC Glucose 298 H 211 H (70-99) mg/dl Calcium 7.6 L (8.5-10.1) mg/dl Urine Protein (Negative) Urine Glucose (UA) (Negative) Urine Ketones (Negative) Urine Blood (Negative) Urine RBC (Auto) (0-4) /hpf U Epithel Cells (Auto) (0-5) /[facility] 05/29/22 05/29/22 05/29/22 Range/Units 05:28 11:34 11:35 RBC 2.50 L (4.63-6.08) M/uL Hgb 7.9 L (14.0-18.0) g/dl Hct 23.7 L (40.1-51.0) % RDW Std Deviation 61.1 H (36.4-46.3) fL RDW Coeff of Alpa 18.1 H (11.5-14.5) % Plt Count 24 L* (130-400) K/uL Absolute Nucleated RBC 0.17 H (0-0) K/uL Sodium (136-145) mmol/L Carbon Dioxide (21-32) mmol/L BUN/Creatinine Ratio (10-20) Glucose (70-99(Fasting)) mg/dl POC Glucose 331 H* 335 H* (70-99) mg/dl Calcium (8.5-10.1) mg/dl Urine Protein (Negative) Urine Glucose (UA) (Negative) Urine Ketones (Negative) Urine Blood (Negative) Urine RBC (Auto) (0-4) /hpf U Epithel Cells (Auto) (0-5) /[facility] 05/29/22 Range/Units 15:26 RBC (4.63-6.08) M/uL Hgb (14.0-18.0) g/dl Hct (40.1-51.0) % RDW Std Deviation (36.4-46.3) fL RDW Coeff of Alpa (11.5-14.5) % Plt Count (130-400) K/uL Absolute Nucleated RBC (0-0) K/uL Sodium (136-145) mmol/L Carbon Dioxide (21-32) mmol/L BUN/Creatinine Ratio (10-20) Glucose (70-99(Fasting)) mg/dl POC Glucose (70-99) mg/dl Calcium (8.5-10.1) mg/dl Urine Protein 1+ H (Negative) Urine Glucose (UA) 3+ H (Negative) Urine Ketones Trace H (Negative) Urine Blood 1+ H (Negative) Urine RBC (Auto) 5-10 H (0-4) /hpf U Epithel Cells (Auto) 5-10 H (0-5) /lpf Diagnostic Findings Chest X-Ray 05/27/22 12:15 XR chest 1V portable HISTORY: 62 years-old Male Sepsis acute sepsis COMPARISON: Chest radiographs 02/15/2020 TECHNIQUE: AP view of the chest FINDINGS: Cardiac silhouette is enlarged. Prior median sternotomy with cardiac valvular prosthesis. No pneumothorax, large pleural effusion or overt pulmonary edema. Mild subsegmental left basilar densities. Degenerative changes of the shoulders and spine. IMPRESSION: 1. Cardiomegaly without acute process. 2. Mild subsegmental left basilar opacities, likely representing atelectasis. A mild pneumonitis could appear similarly. ACT 112: Negative or not required by law. The above report was generated using voice recognition software. It may contain grammatical, syntax or spelling errors. Electronically signed by: Karthik Simon M.D. 05/27/2022 12:36 PM Abdomen/Pelvis CT 05/27/22 12:16 CT ANGIOGRAM OF THE CHEST; CT SCAN OF THE ABDOMEN AND PELVIS WITH IV CONTRAST CLINICAL HISTORY: Hypertension. Change in mental status. Lower extremity edema. Fall. COMPARISON STUDY: Chest x-ray dated 05/27/2022. Renal ultrasound dated 02/14/2020. TECHNIQUE: Following the IV administration of 120 of Optiray 320, CT angiogram of the chest is performed from the upper abdomen to the thoracic inlet utilizing the pulmonary embolus protocol. Images are reviewed in the axial, sagittal, coronal planes. 3-D MIPS images are created and assessed. Subsequently, CT scan of the abdomen and pelvis was performed from the lung bases to the proximal femora. Images are reviewed in the axial, sagittal, and coronal planes. IV contrast was administered without complication. A dose lowering technique was utilized adhering to the principles of ALARA. The examinations are compromised by motion artifact, as well as by streak artifact from the arms which could not be elevated above the chest or abdomen. CT DOSE: 2328.51 mGy.cm FINDINGS: CHEST: Thyroid: Imaged portions of the thyroid gland are normal in size and attenuation. Thoracic aorta: There is advanced atherosclerotic calcification of the thoracic aorta, which is normal in caliber and demonstrates standard 3-vessel arch anatomy. No dissection is seen. Pulmonary vasculature: The pulmonary trunk is normal in caliber. There are no filling defects identified in the main, lobar, or segmental pulmonary arteries to indicate pulmonary embolus. Evaluation of the peripheral branches is compromised by motion artifact. Heart: The patient is status post midline sternotomy and aortic valve surgery. The heart is enlarged and without pericardial effusion. The coronary arteries are densely calcified. Lungs and pleural spaces: Evaluation of the lung parenchyma is significantly degraded by motion artifact. The trachea and central airways are clear. No airspace consolidation or pleural effusion is identified. Foci of scarring/atelectasis are seen in both lungs. Mediastinum: There are pathologically enlarged mediastinal lymph nodes. An AP window jag aggregate on image #169 measures 4.1 x 2.8 cm. An anterior mediastinal node on image #169 measures 2.2 x 1.3 cm. Makayla: An enlarged right hilar node on image #142 measures 2.5 x 1.4 cm. No right hilar adenopathy is identified. Axillae: There is no axillary lymphadenopathy. A lead in the right infra- axillary soft tissues on image #148 measures 1.9 x 1.1 cm. Bony thorax: No lytic or blastic lesions are identified. There are numerous healed left-sided rib fractures. Degenerative change is noted in the shoulders and thoracic spine. ABDOMEN AND PELVIS: Liver: The contrast-enhanced liver is enlarged, measuring 20.7 cm in length. The liver is diffusely infiltrated by metastatic disease. A customer contact representative right lobe lesion on image #107 measures 2.6 cm. There is no intrahepatic biliary ductal dilatation. The hepatic veins and portal veins are patent. Gallbladder: There are calcified gallstones without CT evidence of acute cholecystitis. Spleen: Normal in size and attenuation. Pancreas: Mildly atrophic and grossly unremarkable. Adrenal glands: The adrenal glands are markedly thickened and hyperemic. The right adrenal gland measures up to 1.7 cm in thickness and the right adrenal gland measures up to 1.9 cm. Kidneys: There is asymmetric cortical atrophy of the left kidney as compared to the right. No hydronephrosis is seen. The right kidney enhances normally. Enhancement of the left kidney is slightly diminished. Abdominal vasculature: There is advanced atherosclerotic calcification and mild ectasia of the abdominal aorta. Stomach and bowel: There is a tiny hiatal hernia. The small bowel loops are normal in caliber. There is significant gaseous distention of the colon with air-fluid levels identified. The right colon measures up to 9 cm in diameter. No transition point or obstructing lesion is identified. The appendix is well- visualized and normal. Peritoneum/retroperitoneum: No intraperitoneal free air is seen. There is trace free fluid in the left lower quadrant. There are intraperitoneal and retroperitoneal implants. A left retroperitoneal implant posterior to left kidney on image #205 measures 1.4 cm. An implant along the anterior transverse colon on image #269 measures 2.2 cm. An implant anterior to the left adrenal gland on image #169 measures 1.7 cm. Lymphadenopathy: A prominent left retroperitoneal node on image #153 measures 8 mm in short axis. Pelvic viscera: The prostate gland is mildly enlarged and heterogeneous. The bladder is distended, and the wall is thickened/trabeculated indicating chronic outlet obstruction. Skeletal structures: There is mild to moderate lumbosacral spondylosis. No lytic or blastic lesions are seen. Soft tissues: Soft tissue contusion is suggested in the right flank on image #193. IMPRESSION: 1. Streak and motion compromised examinations. 2. There is no evidence of pulmonary embolus in the main, lobar, or segmental pulmonary arteries. 3. There is no airspace consolidation or pleural effusion. 4. Cardiomegaly. 5. There is evidence of extensive/diffuse metastatic disease. 6. The liver is enlarged and diffusely infiltrated by metastatic disease. 7. There are pathologically enlarged mediastinal and left hilar lymph nodes. 8. A metastatic soft tissue implant is seen in the right infra-axillary tissues. 9. Metastatic implants are seen in the peritoneum and retroperitoneum. 10. The adrenal glands are markedly thickened, likely representing adrenal metastases. 11. The colon is significantly distended and gas-filled with scattered air-fluid levels. No transitional point or obstructing lesion is seen and this could represent colonic ileus. Correlate clinically for evidence of a nonspecific colitis/diarrheal illness. 12. Cholelithiasis. 13. Soft tissue contusion is suggested in the right flank. 14. Additional findings as above. ACT 112: Positive. There are findings on this exam that require communication between the performing entity and the patient following Patient Test Result Information Act ([place] Act 112) guidelines. Electronically signed by: Kobi Nguyen M.D. 05/27/2022 3:01 PM Chest CTA 05/27/22 12:16 CT ANGIOGRAM OF THE CHEST; CT SCAN OF THE ABDOMEN AND PELVIS WITH IV CONTRAST CLINICAL HISTORY: Hypertension. Change in mental status. Lower extremity edema. Fall. COMPARISON STUDY: Chest x-ray dated 05/27/2022. Renal ultrasound dated 02/14/2020. TECHNIQUE: Following the IV administration of 120 of Optiray 320, CT angiogram of the chest is performed from the upper abdomen to the thoracic inlet utilizing the pulmonary embolus protocol. Images are reviewed in the axial, sagittal, coronal planes. 3-D MIPS images are created and assessed. Subsequently, CT scan of the abdomen and pelvis was performed from the lung bases to the proximal femora. Images are reviewed in the axial, sagittal, and coronal planes. IV contrast was administered without complication. A dose lowering technique was utilized adhering to the principles of ALARA. The examinations are compromised by motion artifact, as well as by streak artifact from the arms which could not be elevated above the chest or abdomen. CT DOSE: 2328.51 mGy.cm FINDINGS: CHEST: Thyroid: Imaged portions of the thyroid gland are normal in size and attenuation. Thoracic aorta: There is advanced atherosclerotic calcification of the thoracic aorta, which is normal in caliber and demonstrates standard 3-vessel arch anatomy. No dissection is seen. Pulmonary vasculature: The pulmonary trunk is normal in caliber. There are no filling defects identified in the main, lobar, or segmental pulmonary arteries to indicate pulmonary embolus. Evaluation of the peripheral branches is compromised by motion artifact. Heart: The patient is status post midline sternotomy and aortic valve surgery. The heart is enlarged and without pericardial effusion. The coronary arteries are densely calcified. Lungs and pleural spaces: Evaluation of the lung parenchyma is significantly degraded by motion artifact. The trachea and central airways are clear. No airspace consolidation or pleural effusion is identified. Foci of scarring/atelectasis are seen in both lungs. Mediastinum: There are pathologically enlarged mediastinal lymph nodes. An AP window jag aggregate on image #169 measures 4.1 x 2.8 cm. An anterior mediastinal node on image #169 measures 2.2 x 1.3 cm. Makayla: An enlarged right hilar node on image #142 measures 2.5 x 1.4 cm. No right hilar adenopathy is identified. Axillae: There is no axillary lymphadenopathy. A lead in the right infra- axillary soft tissues on image #148 measures 1.9 x 1.1 cm. Bony thorax: No lytic or blastic lesions are identified. There are numerous healed left-sided rib fractures. Degenerative change is noted in the shoulders and thoracic spine. ABDOMEN AND PELVIS: Liver: The contrast-enhanced liver is enlarged, measuring 20.7 cm in length. The liver is diffusely infiltrated by metastatic disease. A customer contact representative right lobe lesion on image #107 measures 2.6 cm. There is no intrahepatic biliary ductal dilatation. The hepatic veins and portal veins are patent. Gallbladder: There are calcified gallstones without CT evidence of acute cholecystitis. Spleen: Normal in size and attenuation. Pancreas: Mildly atrophic and grossly unremarkable. Adrenal glands: The adrenal glands are markedly thickened and hyperemic. The right adrenal gland measures up to 1.7 cm in thickness and the right adrenal gland measures up to 1.9 cm. Kidneys: There is asymmetric cortical atrophy of the left kidney as compared to the right. No hydronephrosis is seen. The right kidney enhances normally. Enhancement of the left kidney is slightly diminished. Abdominal vasculature: There is advanced atherosclerotic calcification and mild ectasia of the abdominal aorta. Stomach and bowel: There is a tiny hiatal hernia. The small bowel loops are normal in caliber. There is significant gaseous distention of the colon with air-fluid levels identified. The right colon measures up to 9 cm in diameter. No transition point or obstructing lesion is identified. The appendix is well- visualized and normal. Peritoneum/retroperitoneum: No intraperitoneal free air is seen. There is trace free fluid in the left lower quadrant. There are intraperitoneal and retroperitoneal implants. A left retroperitoneal implant posterior to left kidney on image #205 measures 1.4 cm. An implant along the anterior transverse colon on image #269 measures 2.2 cm. An implant anterior to the left adrenal gland on image #169 measures 1.7 cm. Lymphadenopathy: A prominent left retroperitoneal node on image #153 measures 8 mm in short axis. Pelvic viscera: The prostate gland is mildly enlarged and heterogeneous. The bladder is distended, and the wall is thickened/trabeculated indicating chronic outlet obstruction. Skeletal structures: There is mild to moderate lumbosacral spondylosis. No lytic or blastic lesions are seen. Soft tissues: Soft tissue contusion is suggested in the right flank on image #193. IMPRESSION: 1. Streak and motion compromised examinations. 2. There is no evidence of pulmonary embolus in the main, lobar, or segmental pulmonary arteries. 3. There is no airspace consolidation or pleural effusion. 4. Cardiomegaly. 5. There is evidence of extensive/diffuse metastatic disease. 6. The liver is enlarged and diffusely infiltrated by metastatic disease. 7. There are pathologically enlarged mediastinal and left hilar lymph nodes. 8. A metastatic soft tissue implant is seen in the right infra-axillary tissues. 9. Metastatic implants are seen in the peritoneum and retroperitoneum. 10. The adrenal glands are markedly thickened, likely representing adrenal metastases. 11. The colon is significantly distended and gas-filled with scattered air-fluid levels. No transitional point or obstructing lesion is seen and this could represent colonic ileus. Correlate clinically for evidence of a nonspecific colitis/diarrheal illness. 12. Cholelithiasis. 13. Soft tissue contusion is suggested in the right flank. 14. Additional findings as above. ACT 112: Positive. There are findings on this exam that require communication between the performing entity and the patient following Patient Test Result Information Act ([place] Act 112) guidelines. Electronically signed by: Kobi Nguyen M.D. 05/27/2022 3:[address] 05/27/22 19:08 CT head/brain wo con CLINICAL HISTORY: 62 years-old Male with AMS. Acutely altered mental status TECHNIQUE: Multiple axial CT images of the head were obtained without contrast. A dose lowering technique was utilized adhering to the principles of ALARA. CT DOSE: 614.27 mGy.cm COMPARISON: None. FINDINGS: No acute intracranial hemorrhage, midline shift, intracranial mass, hydrocephalus, territorial ischemia or abnormal extra-axial collection. Mild involutional changes. Cerebral vascular calcifications. No acute calvarial fracture. Comminuted and displaced bilateral nasal bone fractures without significant adjacent soft tissue swelling. The paranasal sinuses, mastoid air cells, and middle ear cavities are clear. IMPRESSION: 1. No acute intracranial abnormality or calvarial fracture identified. 2. Age-indeterminate comminuted and displaced bilateral nasal bone fractures without significant soft tissue swelling, possibly subacute or chronic. Correlate with point tenderness. ACT 112: Negative or not required by law. The above report was generated using voice recognition software. It may contain grammatical, syntax or spelling errors. Electronically signed by: Karthik Simon M.D. 05/28/2022 7:03 AM PG Care Time/CCT Total # of Minutes Spent Total Time Spent with Patient: Total time spent is greater than 50% in coordination of care (as documented) at patient's floor/unit and/or counseling patient: Coding Level of Care Code New Pt INP/OBS CONSULT LVL 3, 45 MIN Patient Type New Diagnoses Pancytopenia D61.818 Metastatic disease C79.9
[2022-05-29] MEDS ORDERED: LANTUS PER UNIT CHARGE SQ SCH (21:00)
[2022-05-30] MEDS: VANCOMYCIN HCL 1,000 MG in SODIUM CHLORIDE 0.9% 250 ML IV SCH ×2 (01:25→12:21)
[2022-05-30] MEDS: METOPROLOL TARTRATE 1 MG/ML VIAL IV SCH ×4 (01:25→21:42)
[2022-05-30 05:51] LABS: Reticulocytes # 0.05 10^6/uL (0.02-0.10)
[2022-05-30 06:01] LABS: INR 1.1 (0.9-1.1)
[2022-05-30] MEDS: metroNIDAZOLE 500 MG/100 ML BAG IV SCH ×3 (06:19→21:43)
[2022-05-30] MEDS: CEFEPIME 2,000 MG in SYRINGE 0 ML IV SCH ×3 (06:20→21:44)
[2022-05-30 06:29] LABS: Anion Gap 7 (3-11); BUN Creatinine Ratio 29.2 (10-20); Blood Urea Nitrogen 26 mg/dl (6-23); Calcium 7.5 mg/dl (8.5-10.1); Carbon Dioxide 31 mmol/L (21-32); Chloride 107 mmol/L (98-107); Creatinine Clr Calc Pharmacy 98.5 ml/min; Est GFR (African American) 105.5 ml/min; Glucose 76 mg/dl (70-99(Fasting)); Sodium 145 mmol/L (136-145)
[2022-05-30 06:36] LABS: Estimated Average Glucose 209 mg/dl; Hemoglobin A1C 8.9 % (4.5-5.6)
[2022-05-30 06:37] LABS: Alanine Aminotransferase 139 U/L (7-52); Albumin Globulin Ratio 1.7 (0.9-2); Alkaline Phosphatase 375 U/L (34-104); Aspartate Aminotransferase 65 U/L (13-39); Bilirubin,Total 1.1 mg/dl (0.2-1.0); Globulin 1.8 gm/dl (2.5-4.0); Iron 133 mcg/dl (35-175); Total Protein 4.8 gm/dl (6.0-8.3); Unsaturated Iron Binding Cap < 55 mcg/dl (155-355)
[2022-05-30] MEDS ORDERED: POTASSIUM CHLORIDE PWD 20 MEQ PACK PO ONE ×2 (07:40→17:10)
--- NOTE | 2022-05-30 07:41 | Hospitalist Progress Note ---
Date of Service May 30, 2022 Assessment & Plan (1) Acute hypotension: (2) Elevated lactic acid level: Plan: Patient presenting from [facility] for evaluation of hypotension/lethargy. BP improved in ED after albumin infusion. Please refer to HPI for details of recent hospital admissions. Possible sepsis. Noted to be afebrile, no leukocytosis. No obvious source identified at this time. Possible UTI. First UA obtained, concerning for UTI. Sample obtained was adequate. Ucultx inconclusive, 3 types of organisms present, all high counts. Noted history of MSSA UTI 04/2022. UA was repeated, negative for bacteria. Note that patient has been on IV broad-spectrum antibiotics. S/p cefepime and Vanco in the ED. Continued with Vanco and Zosyn -> will switch zosyn to cefepime+ flagyl Procalcitonin 31, lactate 5.4 --> 3.4 -> 1.1 (now normal) Follow cultures Blood cultx - negat. in 48 hrs (3) Metastatic disease: (4) Transaminitis: (5) Pancytopenia: Plan: CT ABD/pelvis shows signs of diffuse metastatic disease Labs show transaminitis which has been present since 04/2022 along with pancytopenia Trend CBC, transfuse PRN Discussed with GI and radiology, about biopsy of one of the lesionsultrasound- guided biopsy of liver lesions ordered Will need outpatient follow-up with oncology. Dr. Mccartney, [facility] onc., consulted while inpt. For now we will hold off on liver biopsy, will discuss further with family/palliative medicine. Given lethargy and transaminitis, checked ammonia level - 27 wnl. Patient on lactulose -- will increase dose and give rectally if ammonia level significantly elevated. Consider GI consult Palliative care consult - discussed with significant other at bedside Anemia Hemoglobin on admission 8.2, on 05/28 Hgb 6.4, possibly due to IV fluids Obtained blood consent form Alis over the phone, as patient unable to participate in any meaningful conversation Transfused 1 unit PRBCs Hemoglobin now stable, continue to monitor Thrombocytopenia On admission platelet count 51,000, now down to 25,000 Peripheral smear pathology review requested - The peripheral smear is remarkable for a normocytic anemia and thrombocytopenia. 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 In the setting of widespread metastatic disease, this is concerning for marrow involvement which may be a contributing factor to the cytopenias. Discussed with Dr. Mccartney, heme-onc, possible decrease also secondary to Vanco and Zosyn combination however, clearly patient was thrombocytopenic already prior to giving any antibiotics If/when biopsy scheduled, will need platelet transfusion to have at least 50,000 plt count prior to biopsy Prognosis remains guarded (6) Elevated troponin: Plan: Likely demand ischemia in the setting of acute illness, hypotension HS troponin 66.4 -> 71 ->63 (7) DM type 2 (diabetes mellitus, type 2): Plan: Hgb A1c 9.1 03/2022 NovoLog per protocol while hospitalized (8) Nonischemic cardiomyopathy: Plan: History of, EF resolved after aortic valve replacement EF 55 to 59% Echo 04/05/2022 Continue home dose Lasix, albumin as above (9) Paroxysmal atrial fibrillation: Plan: Rate controlled on metoprolol, anticoagulated on Eliquis Eliquis on hold now for thrombocytopenia (10) History of aortic valve replacement with bioprosthetic valve: Plan: Echo 04/05/2022-aortic valve prosthesis stenosis is absent (11) Chronic left arterial ischemic stroke, MCA (middle cerebral artery): Plan: In the setting of atrial fibrillation, Eliquis on hold as above DVT prophylaxis - Eliquis on hold CODE: DNR/DNI -after discussing with family, prognosis is guarded Admission and Anticipated Discharge Date Admission Date: May 27, 2022 Subjective Patient seen in follow-up of encephalopathy, hypotension, metastatic disease Patient is currently laying in bed, in no acute distress He is awake, however not able to participate in conversation appropriately. He is not aware of being in the hospital. He reports that he is feeling fine. Denies any pain. Denies chest pain or shortness of breath. Seen yesterday eating dinner. Yesterday discussed with oncology, Dr. Mccartney, and holding off on biopsy at this time. We will further discuss with family. Per family resource management professor was present yesterday and also had questions about biopsy/not sure if they wanted to proceed. 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 nically ill appear ing; no acute dist ress Eyes: PERRL, conjunctiva e normal Faint bi lateral periorbita l ecchymosis noted ENMT: trauma to nose not ed Respiratory: normal respiratory effort; no respir atory distress Au scultation: + dimi nished lung sounds Cardiovascular:L Rate/Rhythm: regul ar rate and regula r rhythm Vessels: normal peripheral pulses Extremiti es: + edema (+1 pi tting pedal edema BLE) Gastrointestinal ( Abdomen): normal bowel sound s, soft, nontender , +obese Musculoskeletal: Generally weak, mo ving extremities Skin: no rashes, warm an d dry Psychiatric: Awake but not orie nted. Confused. Able to answer shayne e questions approp riately. Results & Data Results & Data ([facility]) Vital Signs (Past 12 Hours) Vital Signs Temp Pulse Pulse Resp BP Pulse Ox O2 Del Method 05/30/22 07:04 36.5 C 78 18 135/77 92 Room Air 05/30/22 02:26 36.8 C 73 18 137/87 94 Room Air 05/29/22 22:00 88 05/29/22 23:10 36.5 C 81 18 115/74 94 Room Air 05/29/22 20:00 Room Air Laboratory Results 05/30/22 05/30/22 05/30/22 Range/Units 05:37 05:37 05:37 Reticulocyte % (Auto) (0.5-2.0) % Reticulocyte # (0.02-0.10) 10^6/uL PT 12.0 (9.0-12.0) Seconds INR 1.1 (0.9-1.1) Sodium 145 (136-145) mmol/L Potassium 3.0 L (3.5-5.1) mmol/L Chloride 107 (98-107) mmol/L Carbon Dioxide 31 (21-32) mmol/L Anion Gap 7 (3-11) BUN 26 H (6-23) mg/dl Creatinine 0.89 (0.6-1.4) mg/dl Est Cr Clr Drug Dosing 98.5 ml/min Est GFR ( Amer) 105.5 ml/min Est GFR (Non-Af Amer) 91.0 ml/min BUN/Creatinine Ratio 29.2 H (10-20) Glucose 76 (70-99(Fasting)) mg/dl POC Glucose (70-99) mg/dl Estimat Average Glucose mg/dl Hemoglobin A1c (4.5-5.6) % Calcium 7.5 L (8.5-10.1) mg/dl Iron 133 (35-175) mcg/dl TIBC TNP Unsaturated IBC < 55 L (155-355) mcg/dl Transferrin % Sat TNP Ferritin 2225.0 H (8-388) ng/ml Total Bilirubin 1.1 H (0.2-1.0) mg/dl AST 65 H (13-39) U/L ALT 139 H (7-52) U/L Alkaline Phosphatase 375 H (34-104) U/L Ammonia (18-72) umol/L Total Protein 4.8 L (6.0-8.3) gm/dl Albumin 3.0 L (3.4-5.0) gm/dl Globulin 1.8 L (2.5-4.0) gm/dl Albumin/Globulin Ratio 1.7 (0.9-2) Vitamin B12 328 (180-914) pg/ml Urine Color Urine Appearance (Clear) Urine pH (4.5-7.5) Ur Specific [place] (1.000-1.030) Urine Protein (Negative) Urine Glucose (UA) (Negative) Urine Ketones (Negative) Urine Blood (Negative) Urine Nitrite (Negative) Urine Bilirubin (Negative) Urine Urobilinogen (Negative) Ur Leukocyte Esterase (Negative) Urine WBC (Auto) (0-5) /hpf Urine RBC (Auto) (0-4) /hpf U Hyaline Cast (Auto) (0-5) /lpf U Epithel Cells (Auto) (0-5) /lpf Urine Bacteria (Auto) (Negative) Vancomycin Trough (10-20) mcg/ml 05/30/22 05/30/22 05/30/22 Range/Units 05:37 05:37 05:37 Reticulocyte % (Auto) 2.0 (0.5-2.0) % Reticulocyte # 0.05 (0.02-0.10) 10^6/uL PT (9.0-12.0) Seconds INR (0.9-1.1) Sodium (136-145) mmol/L Potassium (3.5-5.1) mmol/L Chloride (98-107) mmol/L Carbon Dioxide (21-32) mmol/L Anion Gap (3-11) BUN (6-23) mg/dl Creatinine (0.6-1.4) mg/dl Est Cr Clr Drug Dosing ml/min Est GFR ( Amer) ml/min Est GFR (Non-Af Amer) ml/min BUN/Creatinine Ratio (10-20) Glucose (70-99(Fasting)) mg/dl POC Glucose (70-99) mg/dl Estimat Average Glucose 209 mg/dl Hemoglobin A1c 8.9 H (4.5-5.6) % Calcium (8.5-10.1) mg/dl Iron (35-175) mcg/dl TIBC Unsaturated IBC (155-355) mcg/dl Transferrin % Sat Ferritin (8-388) ng/ml Total Bilirubin (0.2-1.0) mg/dl AST (13-39) U/L ALT (7-52) U/L Alkaline Phosphatase (34-104) U/L Ammonia 59.0 (18-72) umol/L Total Protein (6.0-8.3) gm/dl Albumin (3.4-5.0) gm/dl Globulin (2.5-4.0) gm/dl Albumin/Globulin Ratio (0.9-2) Vitamin B12 (180-914) pg/ml Urine Color Urine Appearance (Clear) Urine pH (4.5-7.5) Ur Specific [place] (1.000-1.030) Urine Protein (Negative) Urine Glucose (UA) (Negative) Urine Ketones (Negative) Urine Blood (Negative) Urine Nitrite (Negative) Urine Bilirubin (Negative) Urine Urobilinogen (Negative) Ur Leukocyte Esterase (Negative) Urine WBC (Auto) (0-5) /hpf Urine RBC (Auto) (0-4) /hpf U Hyaline Cast (Auto) (0-5) /lpf U Epithel Cells (Auto) (0-5) /lpf Urine Bacteria (Auto) (Negative) Vancomycin Trough (10-20) mcg/ml 05/29/22 05/29/22 05/29/22 Range/Units 20:27 16:23 15:26 Reticulocyte % (Auto) (0.5-2.0) % Reticulocyte # (0.02-0.10) 10^6/uL PT (9.0-12.0) Seconds INR (0.9-1.1) Sodium (136-145) mmol/L Potassium (3.5-5.1) mmol/L Chloride (98-107) mmol/L Carbon Dioxide (21-32) mmol/L Anion Gap (3-11) BUN (6-23) mg/dl Creatinine (0.6-1.4) mg/dl Est Cr Clr Drug Dosing ml/min Est GFR ( Amer) ml/min Est GFR (Non-Af Amer) ml/min BUN/Creatinine Ratio (10-20) Glucose (70-99(Fasting)) mg/dl POC Glucose 201 H 269 H (70-99) mg/dl Estimat Average Glucose mg/dl Hemoglobin A1c (4.5-5.6) % Calcium (8.5-10.1) mg/dl Iron (35-175) mcg/dl TIBC Unsaturated IBC (155-355) mcg/dl Transferrin % Sat Ferritin (8-388) ng/ml Total Bilirubin (0.2-1.0) mg/dl AST (13-39) U/L ALT (7-52) U/L Alkaline Phosphatase (34-104) U/L Ammonia (18-72) umol/L Total Protein (6.0-8.3) gm/dl Albumin (3.4-5.0) gm/dl Globulin (2.5-4.0) gm/dl Albumin/Globulin Ratio (0.9-2) Vitamin B12 (180-914) pg/ml Urine Color Yellow Urine Appearance Clear (Clear) Urine pH 5.5 (4.5-7.5) Ur Specific [place] 1.027 (1.000-1.030) Urine Protein 1+ H (Negative) Urine Glucose (UA) 3+ H (Negative) Urine Ketones Trace H (Negative) Urine Blood 1+ H (Negative) Urine Nitrite Negative (Negative) Urine Bilirubin Negative (Negative) Urine Urobilinogen Negative (Negative) Ur Leukocyte Esterase Negative (Negative) Urine WBC (Auto) 1-5 (0-5) /hpf Urine RBC (Auto) 5-10 H (0-4) /hpf U Hyaline Cast (Auto) 0 (0-5) /lpf U Epithel Cells (Auto) 5-10 H (0-5) /lpf Urine Bacteria (Auto) Negative (Negative) Vancomycin Trough (10-20) mcg/ml 05/29/22 05/29/22 05/29/22 Range/Units 11:35 11:34 11:18 Reticulocyte % (Auto) (0.5-2.0) % Reticulocyte # (0.02-0.10) 10^6/uL PT (9.0-12.0) Seconds INR (0.9-1.1) Sodium (136-145) mmol/L Potassium (3.5-5.1) mmol/L Chloride (98-107) mmol/L Carbon Dioxide (21-32) mmol/L Anion Gap (3-11) BUN (6-23) mg/dl Creatinine (0.6-1.4) mg/dl Est Cr Clr Drug Dosing ml/min Est GFR ( Amer) ml/min Est GFR (Non-Af Amer) ml/min BUN/Creatinine Ratio (10-20) Glucose (70-99(Fasting)) mg/dl POC Glucose 335 H* 331 H* (70-99) mg/dl Estimat Average Glucose mg/dl Hemoglobin A1c (4.5-5.6) % Calcium (8.5-10.1) mg/dl Iron (35-175) mcg/dl TIBC Unsaturated IBC (155-355) mcg/dl Transferrin % Sat Ferritin (8-388) ng/ml Total Bilirubin (0.2-1.0) mg/dl AST (13-39) U/L ALT (7-52) U/L Alkaline Phosphatase (34-104) U/L Ammonia (18-72) umol/L Total Protein (6.0-8.3) gm/dl Albumin (3.4-5.0) gm/dl Globulin (2.5-4.0) gm/dl Albumin/Globulin Ratio (0.9-2) Vitamin B12 (180-914) pg/ml Urine Color Urine Appearance (Clear) Urine pH (4.5-7.5) Ur Specific [place] (1.000-1.030) Urine Protein (Negative) Urine Glucose (UA) (Negative) Urine Ketones (Negative) Urine Blood (Negative) Urine Nitrite (Negative) Urine Bilirubin (Negative) Urine Urobilinogen (Negative) Ur Leukocyte Esterase (Negative) Urine WBC (Auto) (0-5) /hpf Urine RBC (Auto) (0-4) /hpf U Hyaline Cast (Auto) (0-5) /lpf U Epithel Cells (Auto) (0-5) /lpf Urine Bacteria (Auto) (Negative) Vancomycin Trough 15.1 (10-20) mcg/ml 05/29/22 Range/Units 07:46 Reticulocyte % (Auto) (0.5-2.0) % Reticulocyte # (0.02-0.10) 10^6/uL PT 11.9 (9.0-12.0) Seconds INR 1.1 (0.9-1.1) Sodium (136-145) mmol/L Potassium (3.5-5.1) mmol/L Chloride (98-107) mmol/L Carbon Dioxide (21-32) mmol/L Anion Gap (3-11) BUN (6-23) mg/dl Creatinine (0.6-1.4) mg/dl Est Cr Clr Drug Dosing ml/min Est GFR ( Amer) ml/min Est GFR (Non-Af Amer) ml/min BUN/Creatinine Ratio (10-20) Glucose (70-99(Fasting)) mg/dl POC Glucose (70-99) mg/dl Estimat Average Glucose mg/dl Hemoglobin A1c (4.5-5.6) % Calcium (8.5-10.1) mg/dl Iron (35-175) mcg/dl TIBC Unsaturated IBC (155-355) mcg/dl Transferrin % Sat Ferritin (8-388) ng/ml Total Bilirubin (0.2-1.0) mg/dl AST (13-39) U/L ALT (7-52) U/L Alkaline Phosphatase (34-104) U/L Ammonia (18-72) umol/L Total Protein (6.0-8.3) gm/dl Albumin (3.4-5.0) gm/dl Globulin (2.5-4.0) gm/dl Albumin/Globulin Ratio (0.9-2) Vitamin B12 (180-914) pg/ml Urine Color Urine Appearance (Clear) Urine pH (4.5-7.5) Ur Specific [place] (1.000-1.030) Urine Protein (Negative) Urine Glucose (UA) (Negative) Urine Ketones (Negative) Urine Blood (Negative) Urine Nitrite (Negative) Urine Bilirubin (Negative) Urine Urobilinogen (Negative) Ur Leukocyte Esterase (Negative) Urine WBC (Auto) (0-5) /hpf Urine RBC (Auto) (0-4) /hpf U Hyaline Cast (Auto) (0-5) /lpf U Epithel Cells (Auto) (0-5) /lpf Urine Bacteria (Auto) (Negative) Vancomycin Trough (10-20) mcg/ml Medications Administered Current Inpatient Medications Acetaminophen (Acetaminophen 325 Mg Tab) 650 mg PO Q4H PRN PRN Reason: Pain or Fever Stop: 06/26/22 19:06 Apixaban (Apixaban 5 Mg Tablet) 5 mg PO BID ESTUARDO Stop: 06/26/22 20:59 Last Admin: 05/27/22 22:04 Dose: Not Given Atorvastatin Calcium (Atorvastatin 40 Mg Tab) 40 mg PO HS ESTUARDO Stop: 06/26/22 20:59 Last Admin: 05/27/22 22:05 Dose: Not Given Dextrose (Dextrose 50% 50 Ml Syringe) 25 - 50 ml IV UD PRN; Protocol PRN Reason: Hypoglycemia Protocol Stop: 06/26/22 19:06 Folic Acid (Folic Acid 1 Mg Tab) 1 mg PO DAILY ESTUARDO Stop: 06/27/22 08:59 Furosemide (Furosemide 40 Mg Tab) 40 mg PO BID@0900,1600 EST[facility]ARDO Stop: 06/26/22 20:59 Last Admin: 05/27/22 22:05 Dose: Not Given Furosemide (Furosemide Inj 20 Mg/2 Ml Vial) 20 mg IV BID17 ESTUARDO Stop: 06/27/22 08:59 Last Admin: 05/29/22 18:27 Dose: 20 mg Glucagon (Glucagon For Inj 1 Mg Vial) 1 mg SQ UD PRN; Protocol PRN Reason: Hypoglycemia Protocol Stop: 06/26/22 19:06 Glucose (Glucose 40% Gel 15 Gm Tube) 15 - 30 gm PO UD PRN; Protocol PRN Reason: Hypoglycemia Protocol Stop: 06/26/22 19:06 Glucose (Glucose 10 Tab/Tube) 4 - 8 tab PO UD PRN; Protocol PRN Reason: Hypoglycemia Treatment Stop: 06/26/22 19:06 Albumin Human (Albumin 25% 100 Ml) 25 gm in 100 mls @ 50 mls/hr IV Q8H [facility] Last Infusion: 05/28/22 08:36 Dose: Infused Folic Acid 1 mg/ Syringe 10 mls @ 5 mls/min IV QAM [facility]UARDO Stop: 06/27/22 08:59 Last Admin: 05/29/22 08:05 Dose: 5 mls/min Thiamine HCl 100 mg/ Syringe 10 mls @ 2 mls/min IV QAM [facility]O Stop: 06/27/22 08:59 Last Admin: 05/29/22 08:05 Dose: 2 mls/min Vancomycin HCl 1,000 mg/ (Sodium Chloride) 270 mls @ 200 mls/hr IV Q12H [facility]; Protocol Stop: 06/07/22 00:00 Last Infusion: 05/30/22 02:53 Dose: Infused Cefepime HCl 2,000 mg/ Syringe 20 mls @ 5 mls/min IV Q8H [facility] Stop: 06/08/22 14:59 Last Admin: 05/30/22 06:20 Dose: 5 mls/min Metronidazole (Flagyl) 500 mg in 100 mls @ 100 mls/hr IV Q8H [facility] Stop: 06/08/22 14:59 Last Infusion: 05/30/22 07:41 Dose: Infused Insulin Aspart (Insulin Aspart Per Unit) 0 units SC ACHS [facility] Stop: 06/28/22 11:29 Last Admin: 05/29/22 21:27 Dose: 3 units Insulin Glargine (Lantus Per Unit Charge) 27 units SQ HS [facility] Stop: 06/28/22 20:59 Last Admin: 05/29/22 21:27 Dose: 27 units Lactulose (Lactulose Syrup 10 Gm/15 Ml Btl 960 Ml) 10 gm PO BID [facility] Stop: 06/26/22 20:59 Last Admin: 05/27/22 22:06 Dose: Not Given Metoprolol Succinate (Metoprolol Succ 50mg Ext Rel Tab) 50 mg PO DAILY [facility] Stop: 06/27/22 08:59 Metoprolol Tartrate (Metoprolol Tartrate 1 Mg/Ml Vial) 2.5 mg IV Q6 [facility] Stop: 06/27/22 00:00 Last Admin: 05/30/22 06:19 Dose: 2.5 mg Miscellaneous (Carbohydrates For Hypoglycemia ) 15 - 30 gm PO UD PRN PRN Reason: Hypoglycemia Protocol Stop: 06/26/22 19:06 Miscellaneous Information (Vancomycin Consult Active) 1 each N/A UD PRN PRN Reason: Consult Stop: 06/26/22 14:08 Miscellaneous Information (Pharmacy Glycemic Mgmt Consult) 1 each N/A UD PRN; Protocol PRN Reason: Consult Stop: 06/28/22 11:43 Olanzapine (Olanzapine 10 Mg/2.1 Ml Sdv) 2.5 mg IM Q4H PRN PRN Reason: Agitation Stop: 06/26/22 21:14 Potassium Chloride (Potassium Chloride Crtab 20 Meq Tabcr) 40 meq PO BID [facility]ARD[facility] Stop: 06/26/22 20:59 Last Admin: 05/27/22 22:06 Dose: Not Given Potassium Chloride (Potassium Chloride Pwd 20 Meq Pack) 40 meq PO ONE ONE Stop: 05/30/22 07:41 Risperidone (Risperidone 0.5 Mg Tablet) 0.25 mg PO Q8H [facility] Stop: 06/26/22 20:59 Last Admin: 05/27/22 22:06 Dose: Not Given Sacubitril/Valsartan (Valsartan/Sacubitril 26/24mg Tab) 1 tab PO Q12 [facility] Stop: 06/26/22 20:59 Last Admin: 05/27/22 22:06 Dose: Not Given Sennosides (Senna 8.6 Mg Tab) 17.2 mg PO BID [facility] Stop: 06/26/22 20:59 Last Admin: 05/27/22 22:06 Dose: Not Given Tamsulosin HCl (Tamsulosin Hcl 0.4 Mg Cap) 0.4 mg PO DAILY [facility] Stop: 06/27/22 08:59 Thiamine HCl (Thiamine Hcl 100 Mg Tab) 100 mg PO DAILY [facility] Stop: 06/27/22 08:59
[2022-05-30] MEDS: FOLIC ACID 1 MG in SYRINGE 9.8 ML IV SCH (07:53)
[2022-05-30] MEDS: THIAMINE HCL 100 MG in SYRINGE 9 ML IV SCH (07:53)
[2022-05-30] MEDS: FUROSEMIDE INJ 20 MG/2 ML VIAL IV SCH ×2 (07:53→17:32)
[2022-05-30 07:57] LABS: Hematocrit (blood only) 22.1 % (40.1-51.0); Hemoglobin 7.6 g/dl (14.0-18.0); Mean Corpuscular Hemoglobin 31.8 pg (25.0-34.0); Mean Corpuscular Hgb Conc 34.4 g/dL (32.0-36.0); Mean Corpuscular Volume 92.5 fL (80.0-100.0); Mean Platelet Volume 13.2 fL (9.4-12.4); Nucleated RBC # (auto) 0.22 K/uL (0-0); Nucleated RBC % (auto) 3.3 %; Platelet Count 25 K/uL (130-400); RDW Coefficient of Variation 17.2 % (11.5-14.5); RDW Standard Deviation 56.5 fL (36.4-46.3); Red Blood Count 2.39 M/uL (4.63-6.08); White Blood Count 6.63 K/ul (4.8-10.8)
[2022-05-30] MEDS: INSULIN ASPART PER UNIT SC SCH ×4 (09:11→21:52)
--- NOTE | 2022-05-30 11:00 | Pharmacy Report ---
Pharmacy Glycemic Short Note 2 - Date of Service May 30, 2022 - Glycemic Short BSG Results (Last 24 hours): 05/29/22 05/29/22 05/29/22 11:34 11:35 16:23 Glucose POC Glucose 331 H* 335 H* 269 H 05/29/22 05/30/22 05/30/22 20:27 05:37 07:56 Glucose 76 POC Glucose 201 H 84 OUTPATIENT ANTIDIABETIC REGIMEN: * Jardiance 25 mg PO daily * Lantus 27 units HS * Novolog 10 units TIDM ASSESSMENT: 05/30/22 * Yesterday, BSG's were 211-331/335-269-201 mg/dL. * The patient received 27 units of Lantus at lunchtime, and then again at bedtime. * This morning, fasting BSG was 84 mg/dL; 100 mg/dL at lunchtime. * In observance of softer BSG values this morning, tonight's basal insulin will be placed with scaled parameters to promote safety. Future doses to be evaluated. 05/29/22 * Mr Duron is a 62 y/o M with a PMH of T2DM who presents with acute hypotension. * Patient's BSGs yesterday were [phone] mg/dL. Patient received 11 units of bolus insulin. * Today's BSGs are 211- 331/335 mg/dL. * Give patient's home dose of Lantus now then HS. Patient did not receive Lantus on 05/28/21. * Tighten Novolog to weight-based stress of 3 for now. PLAN FOR INPATIENT GLYCEMIC CONTROL: * Hold outpatient oral diabetes medications * Basal insulin: Lantus, scaled to BSG: * If 139 mg/dL or below, give 15 units * If 140-179 mg/dL, give 20 units * If 180 mg/dL or above, give 27 units * Bolus insulin * NovoLog per scale ACHS or Q6hrs while NPO * Goal Range: Low 110 mg/dL - High 140 mg/dL * Correction Factor: 25 mg/dL/unit * Nutritional / Prandial insulin per carb ratio of 1 unit per 6 grams CHO consumed
--- NOTE | 2022-05-30 12:51 | Palliative Care Consultation ---
Date of Consultation May 30, 2022 Assessment & Plan (1) Palliative care encounter: I spoke with Mr. Duron's significant other, Alis Hernandez, as well as his daughter. They have good understanding of his illness and the potential risks and limitations of biopsy and treatment. They tell me that he has never really talked about what kind of care he would want if he were very ill but they are in agreement that they would not want to put him through biopsy or potential cancer treatment in his current state. Early in the fall, he had been doing relatively well at home but has had multiple hospitalizations and functional decline with encephalopathy. That would not be a good quality of life for him. They would prefer that we take a more comfort focused approach to his care, though they would want to continue current treatment for his other medical problems and would want him to return to the hospital if needed. They confirm that he is DNR. We discussed how feasible it would be for them to care for him at home. While he does have supportive family, they all work and Alis is needed pacemaker battery replacement in the near future. We discussed options of hospice and she told me that they have had 24 hour caregivers for other family members in the past but despite that, she is just not able to care for him at home at this time. They would want to look at SNF, close to their home in [place]. They specifically requested [facility]. Discussed with case management. History of Present Illness Reason for Consultation: goals of care Requesting Physician: Dr. Stern Attending Physician: True Stern MD History of Present Illness 62 yo gentleman with cardiomyopathy, severe , and afib. He has had multiple hospitalizations in the last month for CVA, heart failure, and fall with multiple fractures. He had been at [facility] but was admitted with hypotension and possible sepsis. A CT of abdomen and pelvis shows diffuse metastatic disease with multiple liver lesions and transaminitis. He is being considered for liver biopsy but has thrombocytopenia with platelet count of 25,000. He has been seen by oncology and thought to have possible lung primary. He is encephalopathic and not able to discuss goals of care. We have been consulted to assist with discussion. Allergies Allergy/AdvReac Type Severity Reaction Status Date / Time rabbit dander Allergy Mild Watery Eye Verified 05/27/22 15:34 ragweed pollen Allergy Mild Watery Eye Verified 05/27/22 15:34 Iodinated Contrast Media AdvReac Intermediate Vomiting Verified 05/27/22 15:34 Home Medications Medication Instructions Recorded Confirmed Type tamsulosin 0.4 mg capsule (Flomax) 0.4 mg PO DAILY 02/12/20 05/27/22 History acetaminophen 325 mg tablet 650 mg PO Q4H PRN Pain 05/27/22 05/27/22 History (Tylenol) apixaban 5 mg tablet (Eliquis) 5 mg PO BID 05/27/22 05/27/22 History atorvastatin 40 mg tablet 40 mg PO HS 05/27/22 05/27/22 History bacitracin 500 unit/gram topical 1 applic topical BID 05/27/22 05/27/22 History ointment bisacodyl 10 mg rectal suppository 10 mg CA DAILY PRN Constipation 05/27/22 05/27/22 History clotrimazole 1 % topical cream 1 applic topical BID 05/27/22 05/27/22 History (Clotrimazole AF) empagliflozin 25 mg tablet 25 mg PO QAM 05/27/22 05/27/22 History (Jardiance) folic acid 1 mg tablet 1 mg PO DAILY 05/27/22 05/27/22 History furosemide 40 mg tablet (Lasix) 40 mg PO BID 05/27/22 05/27/22 History insulin aspart U-100 100 unit/mL 10 unit subcut TIDM 05/27/22 05/27/22 History subcutaneous solution insulin glargine 100 unit/mL 27 unit subcut HS 05/27/22 05/27/22 History subcutaneous solution (Lantus U-100 Insulin) lactulose 10 gram/15 mL oral 10 g PO BID 05/27/22 05/27/22 History solution magnesium hydroxide 400 mg/5 mL 30 ml PO DAILY PRN Constipation 05/27/22 05/27/22 History oral suspension (Milk of Magnesia) melatonin 3 mg tablet 9 mg PO HS 05/27/22 05/27/22 History metoprolol succinate 50 mg 50 mg PO DAILY 05/27/22 05/27/22 History tablet,extended release 24 hr multivitamin with minerals 1 tab PO DAILY 05/27/22 05/27/22 History ondansetron HCl 4 mg tablet 4 mg PO Q4H PRN NAUSEA/VOMITING 05/27/22 05/27/22 History polyethylene glycol 3350 17 17 g PO QDL PRN Constipation 05/27/22 05/27/22 History gram/dose oral powder (Miralax) potassium chloride 20 mEq 40 meq PO BID 05/27/22 05/27/22 History tablet,extended release risperidone 0.25 mg tablet 0.25 mg PO Q8H 05/27/22 05/27/22 History sacubitril 24 mg-valsartan 26 mg 1 tab PO Q12H 05/27/22 05/27/22 History tablet (Entresto) sennosides 8.6 mg tablet (senna) 17.2 mg PO BID 05/27/22 05/27/22 History sennosides 8.6 mg-docusate sodium 1 tab-cap PO QDL PRN Constipation 05/27/22 05/27/22 History 50 mg tablet (Senokot-S) thiamine HCl (vitamin B1) 100 mg 100 mg PO DAILY 05/27/22 05/27/22 History tablet Patient History Medical History BPH (benign prostatic hyperplasia) Chronic left arterial ischemic stroke, MCA (middle cerebral artery) DM type 2 (diabetes mellitus, type 2) HLD (hyperlipidemia) HTN (hypertension) Nonischemic cardiomyopathy PAD (peripheral artery disease) Paroxysmal atrial fibrillation Surgical History History of aortic valve replacement with bioprosthetic valve Family History Mother Cancer Father Heart valve replaced Social History Smoking Status: Former smoker Cigarettes Per Day: 2; Second Hand Exposure: No; Do You Dip or Chew Tobacco: No; Tobacco Cessation Education Requested by Patient: No Hx Alcohol Use: Yes Alcohol type: beer Hx Substance Use: No Preferred Language: Italian Communication Ability: Effective Coat Operator Required: No Beliefs That Will Affect Care: None marital status: Single Current Living Situation: Significant Other Other Information That Helps Us Care for You: No Feels Safe at Home: Yes Safety Concerns: Feels Safe At This Time Assistive Devices: Oxygen - Continuous Review of Systems Review of Systems: Pain 0/3 Dyspnea 0/3 Nausea 0/3 Anxiety 1/3 Drowsiness 0/3 Anorexia 0/3 Physical Exam Constitutional: + morbidly obese ENMT: Mouth: oral mucous membranes not dry Respiratory: normal respiratory effort; no labored breathing Cardiovascular: Rate/Rhythm: + irregularly irregular Gastrointestinal (Abdomen): Inspection/Auscultation: + significant pannus Neurologic: Speech / Cognition: + abnormal cognition Psychiatric: Orientation: oriented to person and + guarded; + not oriented to place and + not oriented to time Genitourinary: johns catheter Results & [facility] ([facility]) Vital Signs (Past 12 Hours) Vital Signs Temp Pulse Pulse Resp BP Pulse Ox O2 Del Method 05/30/22 12:34 98.8 F 71 21 142/88 H 93 Room Air 05/30/22 05:55 86 05/30/22 07:04 97.7 F 78 18 135/77 92 Room Air 05/30/22 02:26 98.2 F 73 18 137/87 94 Room Air PG Care Time/CCT Total # of Minutes Spent Total Time Spent: 55 Total Time Spent with Patient: Total time spent is greater than 50% in coordination of care (as documented) at patient's floor/unit and/or counseling patient:[id number] goals of care, prognosis, hospice, code status, family education and support Coding Level of Care Code 46391 INT INP/OBS CARE 2/55MIN Diagnoses Palliative care encounter Z51.5
[2022-05-30] MEDS ORDERED: ALBUMIN 25% 100 mL 25 GM/100 ML VIAL IV ONE (17:08)
[2022-05-30] MEDS: POTASSIUM CHLORIDE / WTR 10 MEQ/100 ML PLCT IV SCH ×2 (17:51→19:28)
[2022-05-30] MEDS: CYANOCOBALAMIN (B-12) 500 MCG TABLET PO SCH (18:14)
[2022-05-30] MEDS: LACTULOSE SYRUP 10 GM/15 ML BTL 960 ML PO SCH (21:41)
[2022-05-30] MEDS: LANTUS PER UNIT CHARGE SQ SCH (21:52)
[2022-05-31] MEDS: VANCOMYCIN HCL 1,000 MG in SODIUM CHLORIDE 0.9% 250 ML IV SCH (00:29)
[2022-05-31] MEDS: METOPROLOL TARTRATE 1 MG/ML VIAL IV SCH ×4 (00:29→17:52)
[2022-05-31 06:28] LABS: Hemoglobin 7.6 g/dl (14.0-18.0); Mean Corpuscular Hemoglobin 31.9 pg (25.0-34.0); Mean Corpuscular Hgb Conc 34.5 g/dL (32.0-36.0); Mean Corpuscular Volume 92.4 fL (80.0-100.0); Mean Platelet Volume 12.3 fL (9.4-12.4); Nucleated RBC # (auto) 0.21 K/uL (0-0); Nucleated RBC % (auto) 3.1 %; Platelet Count 39 K/uL (130-400); Red Blood Count 2.38 M/uL (4.63-6.08); White Blood Count 6.82 K/ul (4.8-10.8)
[2022-05-31 06:53] LABS: BUN Creatinine Ratio 31.2 (10-20); Calcium 7.8 mg/dl (8.5-10.1); Creatinine Clr Calc Pharmacy 93.7 ml/min; Est GFR (African American) 100.9 ml/min; Est GFR (Non-African American) 87.1 ml/min; Magnesium 1.7 mg/dl (1.7-2.4); Phosphorus 2.9 mg/dl (2.5-4.9); Potassium 2.8 mmol/L (3.5-5.1)
[2022-05-31] MEDS: FOLIC ACID 1 MG in SYRINGE 9.8 ML IV SCH (08:31)
[2022-05-31] MEDS: metroNIDAZOLE 500 MG/100 ML BAG IV SCH ×2 (08:31→15:24)
[2022-05-31] MEDS: THIAMINE HCL 100 MG in SYRINGE 9 ML IV SCH (08:31)
[2022-05-31] MEDS: CEFEPIME 2,000 MG in SYRINGE 0 ML IV SCH ×2 (08:31→15:23)
[2022-05-31] MEDS: CYANOCOBALAMIN (B-12) 500 MCG TABLET PO SCH (08:32)
[2022-05-31] MEDS: LACTULOSE SYRUP 10 GM/15 ML BTL 960 ML PO SCH ×2 (08:32→21:03)
[2022-05-31] MEDS: INSULIN ASPART PER UNIT SC SCH ×4 (08:41→20:47)
[2022-05-31] MEDS ORDERED: MAGNESIUM SULFATE / D5W 1 GM/100 ML BAG IV ONE (11:15)
--- NOTE | 2022-05-31 11:15 | Hospitalist Progress Note ---
Date of Service May 31, 2022 Assessment & Plan (1) Acute hypotension: (2) Elevated lactic acid level: Plan: Patient presenting from [facility] for evaluation of hypotension/lethargy. BP improved in ED after albumin infusion. Please refer to HPI for details of recent hospital admissions. Possible sepsis. Noted to be afebrile, no leukocytosis. No obvious source identified at this time. Possible UTI. First UA obtained, concerning for UTI. Sample obtained was adequate. Ucultx inconclusive, 3 types of organisms present, all high counts. Noted history of MSSA UTI 04/2022. UA was repeated, negative for bacteria. Note that patient has been on IV broad-spectrum antibiotics. S/p cefepime and Vanco in the ED. Continued with Vanco and Zosyn -> will switch zosyn to cefepime+ flagyl, will stop vanco as cultx remain negat. for mrsa Procalcitonin 31, lactate 5.4 --> 3.4 -> 1.1 (now normal) Follow cultures Blood cultx - negat. in 48 hrs (3) Metastatic disease: (4) Transaminitis: (5) Pancytopenia: Plan: CT ABD/pelvis shows signs of diffuse metastatic disease Labs show transaminitis which has been present since 04/2022 along with pa ncytopenia Trend CBC, transfuse PRN Discussed with GI and radiology, about biopsy of one of the lesionsultrasound- guided biopsy of liver lesions ordered Will need outpatient follow-up with oncology. Dr. Mccartney, [facility] onc., consulted while inpt. For now we will hold off on liver biopsy, will discuss further with family/palliative medicine. Given lethargy and transaminitis, checked ammonia level - 27 wnl. Patient on lactulose -- will increase dose and give rectally if ammonia level significantly elevated. Consider GI consult Palliative care consult - discussed with significant other at bedside Anemia Hemoglobin on admission 8.2, on 05/28 Hgb 6.4, possibly due to IV fluids Obtained blood consent form Alis over the phone, as patient unable to participate in any meaningful conversation Transfused 1 unit PRBCs Hemoglobin now stable, continue to monitor Thrombocytopenia On admission platelet count 51,000, now down to 25,000 Peripheral smear pathology review requested - The peripheral smear is remarkable for a normocytic anemia and thrombocytopenia. 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 In the setting of widespread metastatic disease, this is concerning for marrow involvement which may be a contributing factor to the cytopenias. Discussed with Dr. Mccartney, heme-onc, possible decrease also secondary to Vanco and Zosyn combination however, clearly patient was thrombocytopenic already prior to giving any antibiotics If/when biopsy scheduled, will need platelet transfusion to have at least 50,000 plt count prior to biopsy Prognosis remains guarded (6) Elevated troponin: Plan: Likely demand ischemia in the setting of acute illness, hypotension HS troponin 66.4 -> 71 ->63 (7) DM type 2 (diabetes mellitus, type 2): Plan: Hgb A1c 9.1 03/2022 NovoLog per protocol while hospitalized (8) Nonischemic cardiomyopathy: Plan: History of, EF resolved after aortic valve replacement EF 55 to 59% Echo 04/05/2022 Continue home dose Lasix, albumin as above (9) Paroxysmal atrial fibrillation: Plan: Rate controlled on metoprolol, anticoagulated on Eliquis Eliquis on hold now for thrombocytopenia (10) History of aortic valve replacement with bioprosthetic valve: Plan: Echo 04/05/2022-aortic valve prosthesis stenosis is absent (11) Chronic left arterial ischemic stroke, MCA (middle cerebral artery): Plan: In the setting of atrial fibrillation, Eliquis on hold as above DVT prophylaxis - Eliquis on hold CODE: DNR/DNI -after discussing with family, prognosis is guarded Admission and Anticipated Discharge Date Admission Date: May 27, 2022 Subjective Patient seen in follow-up of encephalopathy, hypotension, metastatic disease Patient is currently laying in bed, sleeping in no acute distress Easily awoken, denies any discomfort or pain, goes back to sleep right away Oncology and palliative med. 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 Confused. Able to answer shayne e questions approp riately. Results & Data Results & Data ([facility]) Vital Signs (Past 12 Hours) Vital Signs Temp Pulse Pulse Resp BP BP Pulse Ox 05/31/22 06:55 74 05/31/22 06:41 36.4 C L 104 H 20 144/84 H 94 05/31/22 06:03 77 146/79 H 05/31/22 02:57 36.3 C L 77 20 146/95 H 95 05/31/22 00:29 79 115/77 O2 Del Method 05/31/22 06:55 05/31/22 06:41 Room Air 05/31/22 06:03 05/31/22 02:57 Room Air 05/31/22 00:29 Laboratory Results 05/31/22 05/31/22 05/31/22 Range/Units 07:58 07:15 05:58 WBC 6.82 (4.8-10.8) K/ul RBC 2.38 L (4.63-6.08) M/uL Hgb 7.6 L (14.0-18.0) g/dl Hct 22.0 L (40.1-51.0) % MCV 92.4 (80.0-100.0) fL MCH 31.9 (25.0-34.0) pg MCHC 34.5 (32.0-36.0) g/dL RDW Std Deviation 56.0 H (36.4-46.3) fL RDW Coeff of Alpa 17.0 H (11.5-14.5) % Plt Count 39 L D (130-400) K/uL MPV 12.3 (9.4-12.4) fL Absolute Nucleated RBC 0.21 H (0-0) K/uL Nucleated RBC % (auto) 3.1 % Sodium (136-145) mmol/L Potassium (3.5-5.1) mmol/L Chloride (98-107) mmol/L Carbon Dioxide (21-32) mmol/L Anion Gap (3-11) BUN (6-23) mg/dl Creatinine (0.6-1.4) mg/dl Est Cr Clr Drug Dosing ml/min Est GFR ( Amer) ml/min Est GFR (Non-Af Amer) ml/min BUN/Creatinine Ratio (10-20) Glucose (70-99(Fasting)) mg/dl POC Glucose 96 (70-99) mg/dl Calcium (8.5-10.1) mg/dl Phosphorus (2.5-4.9) mg/dl Magnesium (1.7-2.4) mg/dl Ammonia 37.0 Bld Cult ID Panel PCR 05/31/22 05/31/22 05/30/22 Range/Units 05:58 05:58 19:46 WBC (4.8-10.8) K/ul RBC (4.63-6.08) M/uL Hgb (14.0-18.0) g/dl Hct (40.1-51.0) % MCV (80.0-100.0) fL MCH (25.0-34.0) pg MCHC (32.0-36.0) g/dL RDW Std Deviation (36.4-46.3) fL RDW Coeff of Alpa (11.5-14.5) % Plt Count (130-400) K/uL MPV (9.4-12.4) fL Absolute Nucleated RBC (0-0) K/uL Nucleated RBC % (auto) % Sodium 146 H (136-145) mmol/L Potassium 2.8 L (3.5-5.1) mmol/L Chloride 110 H (98-107) mmol/L Carbon Dioxide 29 (21-32) mmol/L Anion Gap 7 (3-11) BUN 29 H (6-23) mg/dl Creatinine 0.93 (0.6-1.4) mg/dl Est Cr Clr Drug Dosing 93.7 ml/min Est GFR ( Amer) 100.9 ml/min Est GFR (Non-Af Amer) 87.1 ml/min BUN/Creatinine Ratio 31.2 H (10-20) Glucose 87 (70-99(Fasting)) mg/dl POC Glucose 238 H (70-99) mg/dl Calcium 7.8 L (8.5-10.1) mg/dl Phosphorus 2.9 (2.5-4.9) mg/dl Magnesium 1.7 (1.7-2.4) mg/dl Ammonia Cancelled Bld Cult ID Panel PCR 05/30/22 05/30/22 05/27/22 Range/Units 16:42 11:38 13:11 WBC (4.8-10.8) K/ul RBC (4.63-6.08) M/uL Hgb (14.0-18.0) g/dl Hct (40.1-51.0) % MCV (80.0-100.0) fL MCH (25.0-34.0) pg MCHC (32.0-36.0) g/dL RDW Std Deviation (36.4-46.3) fL RDW Coeff of Alpa (11.5-14.5) % Plt Count (130-400) K/uL MPV (9.4-12.4) fL Absolute Nucleated RBC (0-0) K/uL Nucleated RBC % (auto) % Sodium (136-145) mmol/L Potassium (3.5-5.1) mmol/L Chloride (98-107) mmol/L Carbon Dioxide (21-32) mmol/L Anion Gap (3-11) BUN (6-23) mg/dl Creatinine (0.6-1.4) mg/dl Est Cr Clr Drug Dosing ml/min Est GFR ( Amer) ml/min Est GFR (Non-Af Amer) ml/min BUN/Creatinine Ratio (10-20) Glucose (70-99(Fasting)) mg/dl POC Glucose 141 H 100 H (70-99) mg/dl Calcium (8.5-10.1) mg/dl Phosphorus (2.5-4.9) mg/dl Magnesium (1.7-2.4) mg/dl Ammonia Bld Cult ID Panel PCR Pending Medications Administered Current Inpatient Medications Acetaminophen (Acetaminophen 325 Mg Tab) 650 mg PO Q4H PRN PRN Reason: Pain or Fever Stop: 06/26/22 19:06 Apixaban (Apixaban 5 Mg Tablet) 5 mg PO BID [facility]ARDO Stop: 06/26/22 20:59 Last Admin: 05/27/22 22:04 Dose: Not Given Atorvastatin Calcium (Atorvastatin 40 Mg Tab) 40 mg PO HS ESTUARDO Stop: 06/26/22 20:59 Last Admin: 05/27/22 22:05 Dose: Not Given Cyanocobalamin (Cyanocobalamin (B-12) 500 Mcg Tablet) 500 mcg PO QAM [facility] Stop: 06/29/22 17:14 Last Admin: 05/31/22 08:32 Dose: 500 mcg Dextrose (Dextrose 50% 50 Ml Syringe) 25 - 50 ml IV UD PRN; Protocol PRN Reason: Hypoglycemia Protocol Stop: 06/26/22 19:06 Folic Acid (Folic Acid 1 Mg Tab) 1 mg PO DAILY [facility] Stop: 06/27/22 08:59 Furosemide (Furosemide 40 Mg Tab) 40 mg PO BID@0900,1600 [facility] Stop: 06/26/22 20:59 Last Admin: 05/27/22 22:05 Dose: Not Given Furosemide (Furosemide Inj 20 Mg/2 Ml Vial) 20 mg IV BID17 [facility] Stop: 06/27/22 08:59 Last Admin: 05/30/22 17:32 Dose: Not Given Glucagon (Glucagon For Inj 1 Mg Vial) 1 mg SQ UD PRN; Protocol PRN Reason: Hypoglycemia Protocol Stop: 06/26/22 19:06 Glucose (Glucose 40% Gel 15 Gm Tube) 15 - 30 gm PO UD PRN; Protocol PRN Reason: Hypoglycemia Protocol Stop: 06/26/22 19:06 Glucose (Glucose 10 Tab/Tube) 4 - 8 tab PO UD PRN; Protocol PRN Reason: Hypoglycemia Treatment Stop: 06/26/22 19:06 Albumin Human (Albumin 25% 100 Ml) 25 gm in 100 mls @ 50 mls/hr IV Q8H [facility] Last Infusion: 05/28/22 08:36 Dose: Infused Folic Acid 1 mg/ Syringe 10 mls @ 5 mls/min IV QAM [facility] Stop: 06/27/22 08:59 Last Admin: 05/31/22 08:31 Dose: 5 mls/min Thiamine HCl 100 mg/ Syringe 10 mls @ 2 mls/min IV QAM [facility] Stop: 06/27/22 08:59 Last Admin: 05/31/22 08:31 Dose: 2 mls/min Cefepime HCl 2,000 mg/ Syringe 20 mls @ 5 mls/min IV Q8H [facility] Stop: 06/08/22 14:59 Last Admin: 05/31/22 08:31 Dose: 5 mls/min Metronidazole (Flagyl) 500 mg in 100 mls @ 100 mls/hr IV Q8H [facility] Stop: 06/08/22 14:59 Last Infusion: 05/31/22 10:04 Dose: Infused Insulin Aspart (Insulin Aspart Per Unit) 0 units SC ACHS [facility] Stop: 06/28/22 11:29 Last Admin: 05/31/22 08:41 Dose: 1 units Insulin Glargine (Lantus Per Unit Charge) 0 units SQ HS [facility]; Protocol Stop: 06/29/22 20:59 Last Admin: 05/30/22 21:52 Dose: 27 units Lactulose (Lactulose Syrup 10 Gm/15 Ml Btl 960 Ml) 10 gm PO BID [facility] Stop: 06/26/22 20:59 Last Admin: 05/31/22 08:32 Dose: 10 gm Metoprolol Succinate (Metoprolol Succ 50mg Ext Rel Tab) 50 mg PO DAILY [facility] Stop: 06/27/22 08:59 Metoprolol Tartrate (Metoprolol Tartrate 1 Mg/Ml Vial) 2.5 mg IV Q6 [facility] Stop: 06/27/22 00:00 Last Admin: 05/31/22 06:03 Dose: 2.5 mg Miscellaneous (Carbohydrates For Hypoglycemia ) 15 - 30 gm PO UD PRN PRN Reason: Hypoglycemia Protocol Stop: 06/26/22 19:06 Miscellaneous Information (Pharmacy Glycemic Mgmt Consult) 1 each N/A UD PRN; Protocol PRN Reason: Consult Stop: 06/28/22 11:43 Olanzapine (Olanzapine 10 Mg/2.1 Ml Sdv) 2.5 mg IM Q4H PRN PRN Reason: Agitation Stop: 06/26/22 21:14 Potassium Chloride (Potassium Chloride Crtab 20 Meq Tabcr) 40 meq PO BID [facility] Stop: 06/26/22 20:59 Last Admin: 05/27/22 22:06 Dose: Not Given Risperidone (Risperidone 0.5 Mg Tablet) 0.25 mg PO Q8H [facility] Stop: 06/26/22 20:59 Last Admin: 05/27/22 22:06 Dose: Not Given Sacubitril/Valsartan (Valsartan/Sacubitril 26/24mg Tab) 1 tab PO Q12 [facility] Stop: 06/26/22 20:59 Last Admin: 05/27/22 22:06 Dose: Not Given Sennosides (Senna 8.6 Mg Tab) 17.2 mg PO BID [facility] Stop: 06/26/22 20:59 Last Admin: 05/27/22 22:06 Dose: Not Given Tamsulosin HCl (Tamsulosin Hcl 0.4 Mg Cap) 0.4 mg PO DAILY [facility] Stop: 06/27/22 08:59 Thiamine HCl (Thiamine Hcl 100 Mg Tab) 100 mg PO DAILY [facility] Stop: 06/27/22 08:59
[2022-05-31 11:31] LABS: A calco-baum cmplx NotReported Not Detected (NotDetected); Bact fragilis Not Reported Not Detected (NotDetected); C auris Not Reported Not Detected (NotDetected); Calbicans Not Reported Not Detected (NotDetected); Candida glabrata Not Reported Not Detected (NotDetected); Candida krusei Not Reported Not Detected (NotDetected); Cneoformans/gatti Not Reported Not Detected (NotDetected); Cparapsilosis Not Reported Not Detected (NotDetected); Ctropicalis Not Reported Not Detected (NotDetected); E cloacae compx Not Reported Not Detected (NotDetected); Efaecalis Not Reported Not Detected (NotDetected); Efaecium Not Reported Not Detected (NotDetected); Enterobacterales Not Reported Not Detected (NotDetected); Escherichia coli Not Reported Not Detected (NotDetected); H influenzae Not Reported Not Detected (NotDetected); K aerogenes Not Reported Not Detected (NotDetected); Koxytoca Not Reported Not Detected (NotDetected); Kpneumoniae grp Not Reported Not Detected (NotDetected); Lmonocyt Not Reported Not Detected (NotDetected); N meningitidis Not Reported Not Detected (NotDetected); P aeruginosa Not Reported Not Detected (NotDetected); Proteus spp Not Reported Not Detected (NotDetected); Salmonella spp Not Reported Not Detected (NotDetected); Smarcescens Not Reported Not Detected (NotDetected); Staph lugdunensis Not Reported Not Detected (NotDetected); Staph spp. Not Reported DETECTED (NotDetected); Staphaureus Not Reported DETECTED (NotDetected); Staphepi Not Reported Not Detected (NotDetected); Staphylococcus spp. DETECTED (NotDetected); Stenmaltophilia Not Reported Not Detected (NotDetected); Strep agal(GrpB) Not Reported Not Detected (NotDetected); Strep pneum Not Reported Not Detected (NotDetected); Strep pyog (GrpA) Not Reported Not Detected (NotDetected); Strep spp Not Reported Not Detected (NotDetected); mecAC+MREJ Resistant Gene MRSA Not Detected (NotDetected)
[2022-05-31] MEDS: POTASSIUM CHLORIDE / WTR 10 MEQ/100 ML PLCT IV SCH ×3 (12:23→14:15)
[2022-05-31] MEDS: POTASSIUM CHLORIDE PWD 20 MEQ PACK PO SCH ×3 (13:04→21:13)
--- NOTE | 2022-05-31 15:00 | Pharmacy Report ---
Pharmacy Glycemic Short Note 2 - Date of Service May 31, 2022 - Glycemic Short BSG Results (Last 24 hours): 05/30/22 05/30/22 05/31/22 16:42 19:46 05:58 Glucose 87 POC Glucose 141 H 238 H 05/31/22 05/31/22 07:58 12:14 Glucose POC Glucose 96 152 H OUTPATIENT ANTIDIABETIC REGIMEN: * Jardiance 25 mg PO daily * Lantus 27 units HS * Novolog 10 units TIDM ASSESSMENT: 05/31/22: * Yesterday's BSG's: [phone] mg/dL. * The patient received 27 units of basal insulin at bedtime last night. Will revise the scale to either give 20 or 27 units, based on HS BSG. * Will continue Novolog at 25-6 bolus dosing parameters 05/30/22 * Yesterday, BSG's were 211-331/335-269-201 mg/dL. * The patient received 27 units of Lantus at lunchtime, and then again at bedtime. * This morning, fasting BSG was 84 mg/dL; 100 mg/dL at lunchtime. * In observance of softer BSG values this morning, tonight's basal insulin will be placed with scaled parameters to promote safety. Future doses to be evaluated. 05/29/22 * Mr Duron is a 62 y/o M with a PMH of T2DM who presents with acute hypotension. * Patient's BSGs yesterday were [phone] mg/dL. Patient received 11 units of bolus insulin. * Today's BSGs are 211- 331/335 mg/dL. * Give patient's home dose of Lantus now then HS. Patient did not receive Lantus on 05/28/21. * Tighten Novolog to weight-based stress of 3 for now. PLAN FOR INPATIENT GLYCEMIC CONTROL: * Hold outpatient oral diabetes medications * Basal insulin: Lantus, scaled to BSG: * If 139 mg/dL or below, give 20 units * If 140 mg/dL or above, give 27 units * Bolus insulin * NovoLog per scale ACHS or Q6hrs while NPO * Goal Range: Low 110 mg/dL - High 140 mg/dL * Correction Factor: 25 mg/dL/unit * Nutritional / Prandial insulin per carb ratio of 1 unit per 6 grams CHO consumed
[2022-05-31] MEDS: LANTUS PER UNIT CHARGE SQ SCH (20:48)
[2022-06-01] MEDS: METOPROLOL TARTRATE 1 MG/ML VIAL IV SCH ×4 (01:04→17:14)
[2022-06-01] MEDS: metroNIDAZOLE 500 MG/100 ML BAG IV SCH ×4 (01:04→22:46)
[2022-06-01] MEDS: CEFEPIME 2,000 MG in SYRINGE 0 ML IV SCH ×2 (01:04→06:50)
[2022-06-01 06:48] LABS: Hematocrit (blood only) 23.9 % (40.1-51.0); Hemoglobin 8.2 g/dl (14.0-18.0); Mean Corpuscular Hemoglobin 32.4 pg (25.0-34.0); Mean Corpuscular Hgb Conc 34.3 g/dL (32.0-36.0); Mean Corpuscular Volume 94.5 fL (80.0-100.0); Mean Platelet Volume 13.1 fL (9.4-12.4); Nucleated RBC # (auto) 0.27 K/uL (0-0); Nucleated RBC % (auto) 3.8 %; Platelet Count 24 K/uL (130-400); RDW Standard Deviation 57.1 fL (36.4-46.3); Red Blood Count 2.53 M/uL (4.63-6.08); White Blood Count 7.13 K/ul (4.8-10.8)
--- NOTE | 2022-06-01 06:52 | Hospitalist Progress Note ---
Date of Service May 31, 2022 Assessment & Plan (1) Pancytopenia: Plan: Platelets seem to be rising though still less than 50,000. Current trajectory, hopefully suggests that they could reach that threshold in the next day or 2. If and when he is consistently above 50,000, can certainly resume anticoagulation full dose at that point so long as there is no other signs of threatening bleeding. Again, bleeding is always a risk with anticoagulants of any platelet count but at least the risk/benefit ratio tends to favor anticoagulation once platelets are above that level. If anticoagulation were considered critical in the interim, could consider half dose enoxaparin so long as platelets are between 25-50,000 and there is no signs of immediately threatening bleeding Vancomycin and piperacillin have been discontinued in favor of more "hematopoiesis friendly" antibiotics. Bacteremia/possible sepsis may certainly have contributed to his cytopenias which will hopefully improve as he stabilizes with respect to those infections. (2) Metastatic disease: Plan: As per original consultation, I think there are fundamental philosophical questions as to whether we can truly expect to find disease on biopsy that would warrant other than palliative care intervention in a gentleman with significant neurological compromise. Nevertheless, biopsy at least becomes potentially feasible if his platelet count continues to improve and his overall situation stabilizes. Unfortunately family members were not available at the time of my visit and I have not had a chance to get a larger sense of how the family as a whole feels in terms of aggression of diagnosis and treatment intervention. If there is a good time on Monday or evening for me to be available to speak with them, please let me know Plan Immediate plan will be to continue current antibiotics and supportive care. Guidelines for resumption of anticoagulation are as detailed above. Still need to get a sense from the family as to how aggressively we should pursue further diagnosis and possible oncologic treatment -as above I can be potentially available for family meeting either Monday or evening Admission and Anticipated Discharge Date Admission Date: May 27, 2022 Subjective Patient is quite alert, responds with fluent speech yet shows clear issues of receptive and expressive dysphasia Seems not at all uncomfortable Physical Exam Physical Exam: Stable vital signs and exam Some persistent periorbital ecchymosis and abrasions over the bridge of his nose but without gross signs of residual trauma Results & Data Results & Data ([facility]) Vital Signs (Past 12 Hours) Vital Signs Temp Pulse Resp BP Pulse Ox O2 Del Method 05/31/22 22:53 35.6 C L 80 17 116/79 95 Room Air 05/31/22 19:47 36.4 C L 84 17 113/76 93 Room Air Laboratory Results Abnormal lab results 05/27/22 05/31/22 05/31/22 Range/Units 13:11 05:58 12:14 RBC (4.63-6.08) M/uL Hgb (14.0-18.0) g/dl Hct (40.1-51.0) % RDW Std Deviation (36.4-46.3) fL RDW Coeff of Alpa (11.5-14.5) % Plt Count (130-400) K/uL MPV (9.4-12.4) fL Absolute Nucleated RBC (0-0) K/uL Sodium 146 H (136-145) mmol/L Potassium 2.8 L (3.5-5.1) mmol/L Chloride 110 H (98-107) mmol/L BUN 29 H (6-23) mg/dl BUN/Creatinine Ratio 31.2 H (10-20) POC Glucose 152 H (70-99) mg/dl Calcium 7.8 L (8.5-10.1) mg/dl Staphylococcus sp PCR DETECTED A (NotDetected) Staph aureus (PCR) DETECTED A (NotDetected) 05/31/22 05/31/22 06/01/22 Range/Units 16:55 20:07 05:31 RBC 2.53 L (4.63-6.08) M/uL Hgb 8.2 L (14.0-18.0) g/dl Hct 23.9 L (40.1-51.0) % RDW Std Deviation 57.1 H (36.4-46.3) fL RDW Coeff of Alpa 17.0 H (11.5-14.5) % Plt Count 24 L* (130-400) K/uL MPV 13.1 H (9.4-12.4) fL Absolute Nucleated RBC 0.27 H (0-0) K/uL Sodium (136-145) mmol/L Potassium (3.5-5.1) mmol/L Chloride (98-107) mmol/L BUN (6-23) mg/dl BUN/Creatinine Ratio (10-20) POC Glucose 171 H 216 H (70-99) mg/dl Calcium (8.5-10.1) mg/dl Staphylococcus sp PCR (NotDetected) Staph aureus (PCR) (NotDetected) PG Care Time/CCT Total # of Minutes Spent Total Time Spent with Patient: Total time spent is greater than 50% in coordination of care (as documented) at patient's floor/unit and/or counseling patient: Coding [place] [address] SUB INP/OBS CARE 2/35MIN Patient Type Established History Expanded Problem Focused Exam Expanded Problem Focused Medical Decision Making Moderate Complexity Diagnoses Pancytopenia D61.818 Metastatic disease C79.9
[2022-06-01 07:01] LABS: BUN Creatinine Ratio 33.3 (10-20); Calcium 8.2 mg/dl (8.5-10.1); Creatinine Clr Calc Pharmacy 101.6 ml/min; Est GFR (Non-African American) 90.6 ml/min
[2022-06-01] MEDS: CARBOHYDRATES FOR HYPOGLYCEMIA PO PRN ×2 (07:04→07:31)
[2022-06-01] MEDS: INSULIN ASPART PER UNIT SC SCH ×4 (07:31→20:53)
[2022-06-01] MEDS: POTASSIUM CHLORIDE PWD 20 MEQ PACK PO SCH ×2 (08:33→21:04)
[2022-06-01] MEDS: FOLIC ACID 1 MG in SYRINGE 9.8 ML IV SCH (08:34)
[2022-06-01] MEDS: THIAMINE HCL 100 MG in SYRINGE 9 ML IV SCH (08:34)
[2022-06-01] MEDS: LACTULOSE SYRUP 10 GM/15 ML BTL 960 ML PO SCH ×2 (08:34→21:04)
[2022-06-01] MEDS: CYANOCOBALAMIN (B-12) 500 MCG TABLET PO SCH (08:35)
--- NOTE | 2022-06-01 08:45 | Hospitalist Progress Note ---
Date of Service June 01, 2022 Assessment & Plan (1) Acute hypotension: (2) Elevated lactic acid level: Plan: Sepsis, UTI, bacteremia Patient presenting from [facility] for evaluation of hypotension/lethargy. BP improved in ED after albumin infusion. Please refer to HPI for details of recent hospital admissions. Possible sepsis. Noted to be afebrile, no leukocytosis. No obvious source identified at this time. Possible UTI. First UA obtained, concerning for UTI. Sample obtained was adequate. Ucultx showed 3 types of organisms present, all high counts. Noted history of MSSA UTI 04/2022. UA was repeated, negative for bacteria. Note that patient has been on IV broad- spectrum antibiotics. S/p cefepime and Vanco in the ED. Continued with Vanco and Zosyn -> switched zosyn to cefepime+ flagyl, stopped vanco as cultx remain negat. for mrsa Switch to cefazolin for MSSA Procalcitonin 31, lactate 5.4 --> 3.4 -> 1.1 (now normal) Bacteremia 1 blood cultx posit. for staph aureus not MRSA. Pt has hx of MSSA UTI, as above. Cont. Abx coverage as above Repeat blood cultx - pending TTE Echo obtained - no vegetations identified (3) Metastatic disease: (4) Transaminitis: (5) Pancytopenia: Plan: CT ABD/pelvis shows signs of diffuse metastatic disease Labs show transaminitis which has been present since 04/2022 along with pancytopenia Trend CBC, transfuse PRN Discussed with GI and radiology, about biopsy of one of the lesionsultrasound- guided biopsy of liver lesions ordered Will need outpatient follow-up with oncology. Dr. Mccartney, [facility] onc., consulted while inpt. For now we will hold off on liver biopsy, will discuss further with family/palliative medicine. Given lethargy and transaminitis, checked ammonia level - 27 wnl. Patient on lactulose -- will increase dose and give rectally if ammonia level significantly elevated. Consider GI consult Palliative care consult - discussed with significant other at bedside Anemia Hemoglobin on admission 8.2, on 05/28 Hgb 6.4, possibly due to IV fluids Obtained blood consent form Alis over the phone, as patient unable to participate in any meaningful conversation Transfused 1 unit PRBCs Hemoglobin now stable, continue to monitor Thrombocytopenia On admission platelet count 51,000, now down to 25,000 Peripheral smear pathology review requested - The peripheral smear is remarkable for a normocytic anemia and thrombocytopenia. 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 In the setting of widespread metastatic disease, this is concerning for marrow invol vement which may be a contributing factor to the cytopenias. Discussed with Dr. Mccartney, heme-onc, possible decrease also secondary to Vanco and Zosyn combination however, clearly patient was thrombocytopenic already prior to giving any antibiotics If/when biopsy scheduled, will need platelet transfusion to have at least 50,000 plt count prior to biopsy Prognosis remains guarded (6) Elevated troponin: Plan: Likely demand ischemia in the setting of acute illness, hypotension HS troponin 66.4 -> 71 ->63 (7) DM type 2 (diabetes mellitus, type 2): Plan: Hgb A1c 9.1 03/2022 NovoLog per protocol while hospitalized (8) Nonischemic cardiomyopathy: Plan: History of, EF resolved after aortic valve replacement EF 55 to 59% Echo 04/05/2022 Continue home dose Lasix, albumin as above (9) Paroxysmal atrial fibrillation: Plan: Rate controlled on metoprolol, anticoagulated on Eliquis Eliquis on hold now for thrombocytopenia (10) History of aortic valve replacement with bioprosthetic valve: Plan: Echo 04/05/2022-aortic valve prosthesis stenosis is absent (11) Chronic left arterial ischemic stroke, MCA (middle cerebral artery): Plan: In the setting of atrial fibrillation, Eliquis on hold as above DVT prophylaxis - Eliquis on hold CODE: DNR/DNI -after discussing with family; prognosis is guarded Admission and Anticipated Discharge Date Admission Date: May 27, 2022 Subjective Patient seen in follow-up of encephalopathy, hypotension, metastatic disease Patient is currently laying in bed, sleeping in no acute distress Easily awoken, denies any discomfort or pain, goes back to sleep right away Oncology and palliative med. consulted Holding off on biopsy for now One blood cultx posit. for Staph aureus, not MRSA. Pt has hx of MSSA UTI. Echo obtained to r/o endocarditis. Updated Alis over the phone today - informed her that Dr. Mccartney could meet her and talk to her later in the day today or tomorrow. She prefers tomorrow. Dr. Mccartney was notified via [place] text. 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 Confused. Able to answer shayne e questions approp riately. Results & Data Results & Data ([facility]) Vital Signs (Past 12 Hours) Vital Signs Temp Pulse Resp BP Pulse Ox O2 Del Method 06/01/22 07:54 36.2 C L 78 22 124/81 96 Room Air 05/31/22 22:53 35.6 C L 80 17 116/79 95 Room Air Laboratory Results 06/01/22 06/01/22 06/01/22 Range/Units 07:40 07:19 05:31 WBC 7.13 (4.8-10.8) K/ul RBC 2.53 L (4.63-6.08) M/uL Hgb 8.2 L (14.0-18.0) g/dl Hct 23.9 L (40.1-51.0) % MCV 94.5 (80.0-100.0) fL MCH 32.4 (25.0-34.0) pg MCHC 34.3 (32.0-36.0) g/dL RDW Std Deviation 57.1 H (36.4-46.3) fL RDW Coeff of Alpa 17.0 H (11.5-14.5) % Plt Count 24 L* (130-400) K/uL MPV 13.1 H (9.4-12.4) fL Absolute Nucleated RBC 0.27 H (0-0) K/uL Nucleated RBC % (auto) 3.8 % Sodium (136-145) mmol/L Potassium (3.5-5.1) mmol/L Chloride (98-107) mmol/L Carbon Dioxide (21-32) mmol/L Anion Gap (3-11) BUN (6-23) mg/dl Creatinine (0.6-1.4) mg/dl Est Cr Clr Drug Dosing ml/min Est GFR ( Amer) ml/min Est GFR (Non-Af Amer) ml/min BUN/Creatinine Ratio (10-20) Glucose (70-99(Fasting)) mg/dl POC Glucose 79 61 L* (70-99) mg/dl Calcium (8.5-10.1) mg/dl Staphylococcus sp PCR (NotDetected) Staph aureus (PCR) (NotDetected) mecA/C & MREJ Resist Gene (NotDetected) Bld Cult ID Panel PCR (NotDetected) 06/01/22 05/31/22 05/31/22 Range/Units 05:31 20:07 16:55 WBC (4.8-10.8) K/ul RBC (4.63-6.08) M/uL Hgb (14.0-18.0) g/dl Hct (40.1-51.0) % MCV (80.0-100.0) fL MCH (25.0-34.0) pg MCHC (32.0-36.0) g/dL RDW Std Deviation (36.4-46.3) fL RDW Coeff of Alpa (11.5-14.5) % Plt Count (130-400) K/uL MPV (9.4-12.4) fL Absolute Nucleated RBC (0-0) K/uL Nucleated RBC % (auto) % Sodium 147 H (136-145) mmol/L Potassium 3.0 L (3.5-5.1) mmol/L Chloride 110 H (98-107) mmol/L Carbon Dioxide 31 (21-32) mmol/L Anion Gap 6 (3-11) BUN 30 H (6-23) mg/dl Creatinine 0.90 (0.6-1.4) mg/dl Est Cr Clr Drug Dosing 101.6 ml/min Est GFR ( Amer) 105.0 ml/min Est GFR (Non-Af Amer) 90.6 ml/min BUN/Creatinine Ratio 33.3 H (10-20) Glucose 48 L* (70-99(Fasting)) mg/dl POC Glucose 216 H 171 H (70-99) mg/dl Calcium 8.2 L (8.5-10.1) mg/dl Staphylococcus sp PCR (NotDetected) Staph aureus (PCR) (NotDetected) mecA/C & MREJ Resist Gene (NotDetected) Bld Cult ID Panel PCR (NotDetected) 05/31/22 05/27/22 Range/Units 12:14 13:11 WBC (4.8-10.8) K/ul RBC (4.63-6.08) M/uL Hgb (14.0-18.0) g/dl Hct (40.1-51.0) % MCV (80.0-100.0) fL MCH (25.0-34.0) pg MCHC (32.0-36.0) g/dL RDW Std Deviation (36.4-46.3) fL RDW Coeff of Alpa (11.5-14.5) % Plt Count (130-400) K/uL MPV (9.4-12.4) fL Absolute Nucleated RBC (0-0) K/uL Nucleated RBC % (auto) % Sodium (136-145) mmol/L Potassium (3.5-5.1) mmol/L Chloride (98-107) mmol/L Carbon Dioxide (21-32) mmol/L Anion Gap (3-11) BUN (6-23) mg/dl Creatinine (0.6-1.4) mg/dl Est Cr Clr Drug Dosing ml/min Est GFR ( Amer) ml/min Est GFR (Non-Af Amer) ml/min BUN/Creatinine Ratio (10-20) Glucose (70-99(Fasting)) mg/dl POC Glucose 152 H (70-99) mg/dl Calcium (8.5-10.1) mg/dl Staphylococcus sp PCR DETECTED A (NotDetected) Staph aureus (PCR) DETECTED A (NotDetected) mecA/C & MREJ Resist Gene MRSA Not Detected (NotDetected) Bld Cult ID Panel PCR See PCR Comment (NotDetected) Medications Administered Current Inpatient Medications Acetaminophen (Acetaminophen 325 Mg Tab) 650 mg PO Q4H PRN PRN Reason: Pain or Fever Stop: 06/26/22 19:06 Apixaban (Apixaban 5 Mg Tablet) 5 mg PO BID ESTUARDO Stop: 06/26/22 20:59 Last Admin: 05/27/22 22:04 Dose: Not Given Atorvastatin Calcium (Atorvastatin 40 Mg Tab) 40 mg PO HS [facility] Stop: 06/26/22 20:59 Last Admin: 05/27/22 22:05 Dose: Not Given Cyanocobalamin (Cyanocobalamin (B-12) 500 Mcg Tablet) 500 mcg PO QAM ESTUARDO Stop: 06/29/22 17:14 Last Admin: 06/01/22 08:35 Dose: 500 mcg Dextrose (Dextrose 50% 50 Ml Syringe) 25 - 50 ml IV UD PRN; Protocol PRN Reason: Hypoglycemia Protocol Stop: 06/26/22 19:06 Folic Acid (Folic Acid 1 Mg Tab) 1 mg PO DAILY [facility] Stop: 06/27/22 08:59 Furosemide (Furosemide 40 Mg Tab) 40 mg PO BID@0900,1600 [facility] Stop: 06/26/22 20:59 Last Admin: 05/27/22 22:05 Dose: Not Given Furosemide (Furosemide Inj 20 Mg/2 Ml Vial) 20 mg IV BID17 [facility] Stop: 06/27/22 08:59 Last Admin: 05/30/22 17:32 Dose: Not Given Glucagon (Glucagon For Inj 1 Mg Vial) 1 mg SQ UD PRN; Protocol PRN Reason: Hypoglycemia Protocol Stop: 06/26/22 19:06 Glucose (Glucose 40% Gel 15 Gm Tube) 15 - 30 gm PO UD PRN; Protocol PRN Reason: Hypoglycemia Protocol Stop: 06/26/22 19:06 Glucose (Glucose 10 Tab/Tube) 4 - 8 tab PO UD PRN; Protocol PRN Reason: Hypoglycemia Treatment Stop: 06/26/22 19:06 Albumin Human (Albumin 25% 100 Ml) 25 gm in 100 mls @ 50 mls/hr IV Q8H [facility] Last Infusion: 05/28/22 08:36 Dose: Infused Folic Acid 1 mg/ Syringe 10 mls @ 5 mls/min IV QAM [facility] Stop: 06/27/22 08:59 Last Admin: 06/01/22 08:34 Dose: 5 mls/min Thiamine HCl 100 mg/ Syringe 10 mls @ 2 mls/min IV QAM ESTUARDO Stop: 06/27/22 08:59 Last Admin: 06/01/22 08:34 Dose: 2 mls/min Metronidazole (Flagyl) 500 mg in 100 mls @ 100 mls/hr IV Q8H ESTUARDO Stop: 06/08/22 14:59 Last Infusion: 06/01/22 16:41 Dose: Infused Cefazolin Sodium (Ancef 2000mg) 2,000 mg in 15 mls @ 3.75 mls/min IV Q8H ESTUARDO Stop: 06/12/22 23:59 Last Admin: 06/01/22 15:11 Dose: 3.75 mls/min Insulin Aspart (Insulin Aspart Per Unit) 0 units SC ACHS [facility] Stop: 06/28/22 11:29 Last Admin: 06/01/22 12:30 Dose: 2 units Insulin Glargine (Lantus Per Unit Charge) 15 units SQ HS ONE Stop: 06/01/22 21:01 Lactulose (Lactulose Syrup 10 Gm/15 Ml Btl 960 Ml) 10 gm PO BID ESTUARDO Stop: 06/26/22 20:59 Last Admin: 06/01/22 08:34 Dose: 10 gm Metoprolol Succinate (Metoprolol Succ 50mg Ext Rel Tab) 50 mg PO DAILY [facility] Stop: 06/27/22 08:59 Metoprolol Tartrate (Metoprolol Tartrate 1 Mg/Ml Vial) 2.5 mg IV Q6 [facility] Stop: 06/27/22 00:00 Last Admin: 06/01/22 12:31 Dose: 2.5 mg Miscellaneous (Carbohydrates For Hypoglycemia ) 15 - 30 gm PO UD PRN PRN Reason: Hypoglycemia Protocol Stop: 06/26/22 19:06 Last Admin: 06/01/22 07:31 Dose: 15 gm Miscellaneous Information (Pharmacy Glycemic Mgmt Consult) 1 each N/A UD PRN; Protocol PRN Reason: Consult Stop: 06/28/22 11:43 Olanzapine (Olanzapine 10 Mg/2.1 Ml Sdv) 2.5 mg IM Q4H PRN PRN Reason: Agitation Stop: 06/26/22 21:14 Potassium Chloride (Potassium Chloride Crtab 20 Meq Tabcr) 40 meq PO BID ESTUARDO Stop: 06/26/22 20:59 Last Admin: 05/27/22 22:06 Dose: Not Given Potassium Chloride (Potassium Chloride Pwd 20 Meq Pack) 40 meq PO BID ESTUARDO Stop: 06/30/22 11:29 Last Admin: 06/01/22 08:33 Dose: 40 meq Risperidone (Risperidone 0.5 Mg Tablet) 0.25 mg PO Q8H ESTUARDO Stop: 06/26/22 20:59 Last Admin: 05/27/22 22:06 Dose: Not Given Sacubitril/Valsartan (Valsartan/Sacubitril 26/24mg Tab) 1 tab PO Q12 ESTUARDO Stop: 06/26/22 20:59 Last Admin: 05/27/22 22:06 Dose: Not Given Sennosides (Senna 8.6 Mg Tab) 17.2 mg PO BID ESTUARDO Stop: 06/26/22 20:59 Last Admin: 05/27/22 22:06 Dose: Not Given Tamsulosin HCl (Tamsulosin Hcl 0.4 Mg Cap) 0.4 mg PO DAILY ESTUARDO Stop: 06/27/22 08:59 Thiamine HCl (Thiamine Hcl 100 Mg Tab) 100 mg PO DAILY ESTUARDO Stop: 06/27/22 08:59
[2022-06-01] MEDS: POTASSIUM CHLORIDE / WTR 10 MEQ/100 ML PLCT IV SCH ×3 (09:58→11:53)
--- NOTE | 2022-06-01 11:02 | Pharmacy Report ---
Pharmacy Glycemic Short Note 2 - Date of Service June 01, 2022 - Glycemic Short BSG Results (Last 24 hours): 05/31/22 05/31/22 05/31/22 12:14 16:55 20:07 Glucose POC Glucose 152 H 171 H 216 H 06/01/22 06/01/22 06/01/22 05:31 07:19 07:40 Glucose 48 L* POC Glucose 61 L* 79 OUTPATIENT ANTIDIABETIC REGIMEN: * Jardiance 25 mg PO daily * Lantus 27 units HS * Novolog 10 units TIDM ASSESSMENT: 06/01/22: * This AM, fasting blood glucose was recorded as 61 mg/dL. The patient received 27 units of Lantus last night, which was administered per scaling parameters and is consistent with his regular home dose. Tonight's dose will be reduced ~50%. * NovoLog 25-6 parameters will be continued. Although the patient's sugars did uptrend throughout the day on both 05/31 and 06/01, ensuring today's blood glucose values are not overcorrected, and that a fasting blood glucose within range is achieved tomorrow AM, would be safest to prioritize before tightening parameters. 05/31/22: * Yesterday's BSG's: 65-192-338-238 mg/dL. * The patient received 27 units of basal insulin at bedtime last night. Will revise the scale to either give 20 or 27 units, based on HS BSG. * Will continue Novolog at 25-6 bolus dosing parameters 05/30/22 * Yesterday, BSG's were 211-331/335-269-201 mg/dL. * The patient received 27 units of Lantus at lunchtime, and then again at bedtime. * This morning, fasting BSG was 84 mg/dL; 100 mg/dL at lunchtime. * In observance of softer BSG values this morning, tonight's basal insulin will be placed with scaled parameters to promote safety. Future doses to be evaluated. 05/29/22 * Mr Duron is a 62 y/o M with a PMH of T2DM who presents with acute hypotension. * Patient's BSGs yesterday were [phone] mg/dL. Patient received 11 units of bolus insulin. * Today's BSGs are 211- 331/335 mg/dL. * Give patient's home dose of Lantus now then HS. Patient did not receive Lantus on 05/28/21. * Tighten Novolog to weight-based stress of 3 for now. PLAN FOR INPATIENT GLYCEMIC CONTROL: * Hold outpatient oral diabetes medications * Basal insulin: Lantus 15 units HS SQ x1; Future dosing to be determined based on 06/03/22 fasting BSG * Bolus insulin * NovoLog per scale ACHS or Q6hrs while NPO * Goal Range: Low 110 mg/dL - High 140 mg/dL * Correction Factor: 25 mg/dL/unit * Nutritional / Prandial insulin per carb ratio of 1 unit per 6 grams CHO consumed
[2022-06-01] MEDS ORDERED: POTASSIUM CHLORIDE CRTAB 20 MEQ TABCR PO STA (11:49)
[2022-06-01] MEDS: ceFAZolin 2000MG 2,000 MG/15 ML SYR IV SCH ×2 (15:11→22:46)
[2022-06-01] MEDS ORDERED: LANTUS PER UNIT CHARGE SQ ONE (21:00)
[2022-06-02] MEDS: METOPROLOL TARTRATE 1 MG/ML VIAL IV SCH ×5 (02:08→23:20)
[2022-06-02] MEDS: metroNIDAZOLE 500 MG/100 ML BAG IV SCH ×3 (06:17→23:18)
[2022-06-02] MEDS: ceFAZolin 2000MG 2,000 MG/15 ML SYR IV SCH ×3 (06:21→23:18)
[2022-06-02 06:26] LABS: Hematocrit (blood only) 25.4 % (40.1-51.0); Hemoglobin 8.5 g/dl (14.0-18.0); Mean Corpuscular Hemoglobin 32.1 pg (25.0-34.0); Mean Corpuscular Hgb Conc 33.5 g/dL (32.0-36.0); Mean Corpuscular Volume 95.8 fL (80.0-100.0); Mean Platelet Volume 12.4 fL (9.4-12.4); Nucleated RBC # (auto) 0.27 K/uL (0-0); Nucleated RBC % (auto) 3.5 %; Platelet Count 21 K/uL (130-400); RDW Coefficient of Variation 17.3 % (11.5-14.5); RDW Standard Deviation 58.1 fL (36.4-46.3); Red Blood Count 2.65 M/uL (4.63-6.08); White Blood Count 7.71 K/ul (4.8-10.8)
[2022-06-02 06:42] LABS: Calcium 8.4 mg/dl (8.5-10.1); Creatinine Clr Calc Pharmacy 103.9 ml/min; Est GFR (Non-African American) 91.4 ml/min; Potassium 3.6 mmol/L (3.5-5.1)
[2022-06-02] MEDS: LACTULOSE SYRUP 10 GM/15 ML BTL 960 ML PO SCH ×2 (07:44→20:31)
[2022-06-02] MEDS: FOLIC ACID 1 MG in SYRINGE 9.8 ML IV SCH (07:44)
[2022-06-02] MEDS: THIAMINE HCL 100 MG in SYRINGE 9 ML IV SCH (07:44)
[2022-06-02] MEDS: CYANOCOBALAMIN (B-12) 500 MCG TABLET PO SCH (07:45)
[2022-06-02] MEDS: POTASSIUM CHLORIDE PWD 20 MEQ PACK PO SCH ×2 (07:45→20:31)
[2022-06-02] MEDS: INSULIN ASPART PER UNIT SC SCH ×3 (09:27→18:25)
[2022-06-02] MEDS: LANTUS PER UNIT CHARGE SQ SCH ×2 (09:27→18:34)
--- NOTE | 2022-06-02 14:05 | Pharmacy Report ---
Pharmacy Glycemic Short Note 2 - Date of Service June 02, 2022 - Glycemic Short BSG Results (Last 24 hours): 06/01/22 06/01/22 06/02/22 17:05 20:09 05:55 Glucose 258 H POC Glucose 121 H 247 H 06/02/22 06/02/22 08:07 12:03 Glucose POC Glucose 272 H 233 H OUTPATIENT ANTIDIABETIC REGIMEN: * Jardiance 25 mg PO daily * Lantus 27 units HS * Novolog 10 units TIDM ASSESSMENT: 06/02/22 * Patient received total of 22 units of insulin yesterday, of which 15 units were basal insulin * Fasting BSG 258 mg/dL - we had previously scaled back on basal insulin last night d/t low fasting BSG. Will titrate insulin back up slightly today and split BID to provide more flexibility with dosing. Unclear for fluctuations in blood sugar, possibly related to changing oral intake * Talked with RN and patient does not appear to be snacking and has a pretty limited diet. He reports he didn't have anything to eat for breakfast but had ice cream at lunch. 06/01/22: * This AM, fasting blood glucose was recorded as 61 mg/dL. The patient received 27 units of Lantus last night, which was administered per scaling parameters and is consistent with his regular home dose. Tonight's dose will be reduced ~50%. * NovoLog 25-6 parameters will be continued. Although the patient's sugars did uptrend throughout the day on both 05/31 and 06/01, ensuring today's blood glucose values are not overcorrected, and that a fasting blood glucose within range is achieved tomorrow AM, would be safest to prioritize before tightening parameters. 05/31/22: * Yesterday's BSG's: 26-299-395-238 mg/dL. * The patient received 27 units of basal insulin at bedtime last night. Will revise the scale to either give 20 or 27 units, based on HS BSG. * Will continue Novolog at 25-6 bolus dosing parameters 05/30/22 * Yesterday, BSG's were 211-331/335-269-201 mg/dL. * The patient received 27 units of Lantus at lunchtime, and then again at bedtime. * This morning, fasting BSG was 84 mg/dL; 100 mg/dL at lunchtime. * In observance of softer BSG values this morning, kanika's basal insulin will be placed with scaled parameters to promote safety. Future doses to be evaluated. 05/29/22 * Mr Duron is a 62 y/o M with a PMH of T2DM who presents with acute hypotension. * Patient's BSGs yesterday were 152-225-525-298 mg/dL. Patient received 11 units of bolus insulin. * Today's BSGs are 211- 331/335 mg/dL. * Give patient's home dose of Lantus now then HS. Patient did not receive Lantus on 05/28/21. * Tighten Novolog to weight-based stress of 3 for now. PLAN FOR INPATIENT GLYCEMIC CONTROL: * Hold outpatient oral diabetes medications * Basal insulin: Lantus 10 units bid * Bolus insulin * NovoLog per scale ACHS or Q6hrs while NPO * Goal Range: Low 110 mg/dL - High 140 mg/dL * Correction Factor: 25 mg/dL/unit * Nutritional / Prandial insulin per carb ratio of 1 unit per 6 grams CHO consumed
[2022-06-02] MEDS ORDERED: oxyCODONE HCL IR 5 MG TAB (IMMEDIATE RELEASE) PO PRN (14:10)
[2022-06-02] MEDS ORDERED: INSULIN ASPART PER UNIT SC SCH (21:00)
--- NOTE | 2022-06-02 22:20 | Hospitalist Progress Note ---
Date of Service June 02, 2022 Assessment & Plan (1) Metastatic disease: Plan: Heme/onco on board debating whether to do biposy or not (2) Pancytopenia: Plan: From above appreiaite heme/onco recommendations regarding anticoagulation and platelet numbers (3) Bacteremia: Plan: sepsis on ancef an flagyl MSSA Plan TO be determined Admission and Anticipated Discharge Date Admission Date: May 27, 2022 Subjective Patient mumbling not obeying commands hemodynamics stable Review of Systems Review of Systems: Unobtainable due to cognitive status Physical Exam Neck: trachea midline, no thyromegaly Respiratory: normal respiratory effort, lungs clear to auscultation Cardiovascular: RRR, no murmur, no edema Gastrointestinal (Abdomen): normal bowel sounds, soft, nontender, no hepatosplenomegaly Neurologic: mumbling not obeying commands Results & Data Results & Data ([facility]) Vital Signs (Past 12 Hours) Vital Signs Temp Pulse Pulse Resp BP BP Pulse Ox 06/02/22 19:00 36.7 C 91 H 18 118/83 96 06/02/22 18:30 112 H 110/76 06/02/22 16:00 102 H 06/02/22 16:37 36.9 C 103 H 18 102/66 97 06/02/22 12:36 121 H 125/88 O2 Del Method 06/02/22 19:00 Room Air 06/02/22 18:30 06/02/22 16:00 06/02/22 16:37 Room Air 06/02/22 12:36
[2022-06-03] MEDS ORDERED: INSULIN ASPART PER UNIT SC SCH
[2022-06-03] MEDS: METOPROLOL TARTRATE 1 MG/ML VIAL IV SCH (06:27)
[2022-06-03] MEDS: metroNIDAZOLE 500 MG/100 ML BAG IV SCH (06:28)
[2022-06-03] MEDS: ceFAZolin 2000MG 2,000 MG/15 ML SYR IV SCH (06:28)
[2022-06-03 06:35] LABS: BUN Creatinine Ratio 32.3 (10-20); Calcium 8.4 mg/dl (8.5-10.1); Creatinine Clr Calc Pharmacy 95.4 ml/min; Est GFR (African American) 97.1 ml/min; Est GFR (Non-African American) 83.8 ml/min; Potassium 3.4 mmol/L (3.5-5.1)
[2022-06-03 06:56] LABS: Hematocrit (blood only) 24.5 % (40.1-51.0); Hemoglobin 8.3 g/dl (14.0-18.0); Mean Corpuscular Hemoglobin 32.2 pg (25.0-34.0); Mean Corpuscular Hgb Conc 33.9 g/dL (32.0-36.0); Nucleated RBC # (auto) 0.39 K/uL (0-0); Nucleated RBC % (auto) 5.1 %; Platelet Count 22 K/uL (130-400); RDW Coefficient of Variation 17.9 % (11.5-14.5); Red Blood Count 2.58 M/uL (4.63-6.08); White Blood Count 7.63 K/ul (4.8-10.8)
[2022-06-03 06:59] LABS: Basophils # (auto) 0.02 K/uL (0-0.2); Basophils % (auto) 0.3 %; Immature Granulocytes # (auto) 0.56 K/uL (0.00-0.02); Immature Granulocytes % (auto) 7.3 %; Lymphocytes % (auto) 13.1 %; Monocytes # (auto) 0.23 K/uL (0.24-0.82); Neutrophils # (auto) 5.82 K/uL (1.4-6.5); Neutrophils % (auto) 76.3 %; Polychromasia 1+
[2022-06-03] MEDS: CYANOCOBALAMIN (B-12) 500 MCG TABLET PO SCH (08:30)
[2022-06-03] MEDS: LACTULOSE SYRUP 10 GM/15 ML BTL 960 ML PO SCH ×2 (08:30→20:45)
[2022-06-03] MEDS: POTASSIUM CHLORIDE PWD 20 MEQ PACK PO SCH (08:30)
[2022-06-03] MEDS: FOLIC ACID 1 MG in SYRINGE 9.8 ML IV SCH (08:31)
[2022-06-03] MEDS: THIAMINE HCL 100 MG in SYRINGE 9 ML IV SCH (08:31)
[2022-06-03] MEDS: LANTUS PER UNIT CHARGE SQ SCH (08:45)
[2022-06-03] MEDS: INSULIN ASPART PER UNIT SC SCH (08:45)
[2022-06-03] MEDS: MoRPHine SULFATE 2 MG/ML CARP IV PRN ×3 (10:32→20:49)
[2022-06-03] MEDS ORDERED: GLYCOPYRROLATE 0.2 MG/ML VIAL IV PRN (10:46)
[2022-06-03] MEDS ORDERED: ONDANSETRON INJ 2 MG/ML 2 ML VIAL IV PRN (10:46)
--- NOTE | 2022-06-03 10:57 | Palliative Care Progress Note ---
Date of Service June 03, 2022 Assessment & Plan (1) Abdominal pain: Plan: with diffuse metastatic disease Start IV morphine as needed Monitor frequency of dosing needed for comfort, may need infusion at some point (2) Agitation: Plan: with encephalopathy, bacteremia and extensive metastatic disease Pain is a likely contributor. Monitor with addition of opioid Would continue risperidone as ordered previously (3) Palliative care encounter: Plan: Mr. Duron is not capable of decision making at this time. I spoke with his si gnificant other and her daughter on the phone. They were able to speak with Dr. Mccartney last night and understand that he is high risk for complications from biopsy and not a good candidate for cancer treatment at this time with debility, delirium and pancytopenia in addition to his comorbidities. They have discussed this together, and have discussed this with Mr. Duron's daughter. All are in agreement that he would not want further aggressive care. They feel that shift of focus to comfort and symptom management would be more in line with his wishes. We discussed what that would look like with assessing medications and using only those that contribute to his comfort, minimizing testing and monitoring. We will monitor his status with shift to comfort measures. If he is stable, family prefers SNF placement as his SO, Alis, has health problems and is not able to care for him at home. Notified case management and Dr. Mora. Admission and Anticipated Discharge Date Admission Date: May 27, 2022 Subjective Very restless this morning. Calling out. Complains of abdominal pain. Does take a few po meds. Appetite ok per RN. Review of Systems Review of Systems: Unobtainable due to cognitive status Physical Exam Constitutional: + uncomfortable Respiratory: normal respiratory effort; no labored breathing Cardiovascular: Rate/Rhythm: + irregularly irregular Gastrointestinal (Abdomen): distended, painful across mid abdomen Musculoskeletal: edema Neurologic: Speech / Cognition: + abnormal cognition Genitourinary: johns catheter, dark urine Results & Data ([facility]) Vital Signs (Past 12 Hours) Vital Signs Temp Pulse Pulse Resp BP BP Pulse Ox 06/03/22 08:00 06/03/22 07:00 99 H 06/03/22 08:07 98.2 F 96 H 18 115/75 95 06/03/22 06:27 98 H 120/88 06/03/22 00:00 95 H 06/03/22 03:50 98.1 F 98 H 20 120/88 95 06/02/22 23:20 79 116/79 06/02/22 23:00 98.1 F 79 18 116/79 96 O2 Del Method 06/03/22 08:00 Room Air 06/03/22 07:00 06/03/22 08:07 Room Air 06/03/22 06:27 06/03/22 00:00 06/03/22 03:50 Room Air 06/02/22 23:20 06/02/22 23:00 Room Air PG Care Time/CCT Total # of Minutes Spent Total Time Spent: 53 Total Time Spent with Patient: Total time spent is greater than 50% in coordination of care (as documented) at patient's floor/unit and/or counseling patient:[id number] Symptom management, goals of care, family education and support, coordination of care Coding Level of Care Code 40934 SUB INP/OBS CARE 3/50MIN Diagnoses Abdominal pain R10.9 Agitation R45.1 Palliative care encounter Z51.5
[2022-06-03] MEDS: risperiDONE 0.5 MG TABLET PO SCH ×2 (14:18→20:44)
--- NOTE | 2022-06-03 19:30 | Hospitalist Progress Note ---
Date of Service June 02, 2022 Assessment & Plan (1) Metastatic disease: Plan: I spoke at length with the patient's significant other of 30 years, Alis, initially at the patient's bedside though he became even more agitated with us speaking in front of him so we further continued separately. Her daughter was included in the conversation She did describe that in the immediate aftermath of his March hospitalization he seemed to be making some improvement but has had significant decline that goes all the way back to the beginning of April. We did discuss that it may be that the metastatic malignant process was contributing to that decline but it is nevertheless relevant that he has significant mental status/cognitive impairment coupled with persistent significant marrow/hematologic dysfunction all in the context of a malignancy that includes pathologic mediastinal lymphadenopathy, apparent hepatic metastases, peritoneal deposits, and probable adrenal metastases. I acknowledged that a widespread aggressive lymphoma is the one process that can both respond well to the chemotherapy and occasionally achieve sustained complete responses. The pattern in this patient seems extraordinarily unlikely for that potential diagnosis, however. We acknowledged that small cell lung cancer even with widespread metastases can occasionally respond well to treatment and achieve remissions at least for a time though with advanced stage disease relapse is almost inevitable. Even in that context, someone with poor performance status and pancytopenia to start has a far lesser likelihood of tolerating adequately aggressive therapy to achieve and sustain a meaningful response. Admittedly, marrow infiltration from the small cell cancer could be the cause of a patient with that disease presenting with significant pancytopenia but in that setting even a patient with otherwise relatively good physical functionality to start would be at significant morbidity/mortality risk for the prolonged initially and probably initially worsened cytopenias that would come with induction attempts. For most widespread metastatic nonhematologic malignancies, there is a significant evolving sense that patients with poor performance status a priori will not respond well to treatment and that such treatment has quality of life impairing toxicity or even life shortening major side effects. Just trying to do a biopsy in this patient to establish diagnosis would have bleeding risk even with platelet support. 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 Alis and I both feel that he has little or nothing to gain from further agg ressive diagnostic or therapeutic intervention directed to malignancy and that indeed there may be much to lose. I have strongly recommended and she concurs with a plan for only basic supportive measures. I have indicated that should there be an unexpected (and frankly nothing short of miraculous) dramatic improvement in his functionality we could reconsider but have repetitively emphasized that that is extraordinarily unlikely. Plan There is not seem to be any role for further malignancy oriented diagnosis or therapeutic intervention and rather care should focus fundamentally on comfort measures for the patient but also emotional and logistical support of Alis as she tries to deal with this very challenging situation. Admission and Anticipated Discharge Date Admission Date: May 27, 2022 Subjective Please see previous notes. Patient with what appears to be a widespread malignant process, pancytopenia, mental status changes and overall debility. Physical Exam Physical Exam: Patient is alert but agitated and confused. Results & Data Results & Data ([facility]) Vital Signs (Past 12 Hours) Vital Signs Temp Pulse Resp BP Pulse Ox O2 Del Method 06/03/22 08:00 Room Air 06/03/22 08:07 36.8 C 96 H 18 115/75 95 Room Air PG Care Time/CCT Total # of Minutes Spent Total Time Spent with Patient: Total time spent is greater than 50% in coordination of care (as documented) at patient's floor/unit and/or counseling patient: Coding Level of Care Code 06558 SUB INP/OBS CARE 25MIN Diagnoses Metastatic disease C79.9
--- NOTE | 2022-06-03 20:38 | Hospitalist Progress Note ---
Date of Service June 03, 2022 Assessment & Plan (1) Metastatic disease: Plan: Heme/onco on board debating whether to do biposy or not heme/onco and palliative care d/w family and patient currently on comfort measures (2) Pancytopenia: Plan: From above appreiaite heme/onco recommendations regarding anticoagulation and platelet numbers (3) Bacteremia: Plan: sepsis on ancef MSSA Plan On comfort care Admission and Anticipated Discharge Date Admission Date: May 27, 2022 Subjective patient currently on comfort care says he is ok mostly mumbling Review of Systems Review of Systems: Unobtainable due to cognitive status Physical Exam Neck: normal visual inspection Respiratory: normal respiratory effort, lungs clear to auscultation Cardiovascular: RRR, no murmur, no edema Gastrointestinal (Abdomen): normal bowel sounds, soft, nontender, no hepatosplenomegaly Neurologic: confused mumbles Results & Data Results & Data ([facility]) Vital Signs (Past 12 Hours) Vital Signs O2 Del Method 06/03/22 19:33 Room Air
[2022-06-04] MEDS: MoRPHine SULFATE 2 MG/ML CARP IV PRN ×5 (01:17→22:47)
[2022-06-04] MEDS: risperiDONE 0.5 MG TABLET PO SCH ×3 (04:00→21:17)
[2022-06-04] MEDS: LORazepam 2 MG/1 ML VIAL IV PRN (08:55)
[2022-06-04] MEDS: LACTULOSE SYRUP 10 GM/15 ML BTL 960 ML PO SCH ×2 (09:06→21:17)
--- NOTE | 2022-06-04 14:53 | Hospitalist Progress Note ---
Date of Service June 04, 2022 Assessment & Plan (1) Metastatic disease: Plan: Heme/onco on board debating whether to do biposy or not heme/onco and palliative care d/w family and patient currently on comfort measures 06/04 transitioned to comfort measures yesterday patient comfortable overall continue PRN Morphine, Ativan, etc monitor (2) Pancytopenia: Plan: From above no signs of bleeding (3) Bacteremia: Plan: sepsis placed on ancef MSSA Plan On comfort care Admission and Anticipated Discharge Date Admission Date: May 27, 2022 Subjective ff up for metastatic disease, etc seen resting in bed, comfortable sleeping not in distress discussed with RN patient comfortable overall with PRN Morphine, Ativan no other issues Review of Systems Review of Systems: all noted and negative except for above Physical Exam Physical Exam: General- sleeping, not in distress, breathing with no effort or accessory muscle use Eyes- anicteric Neck- no JVD Lungs- clear breath sounds bilaterally, no rales/wheezes Heart- normal rate, regular rhythm; no murmurs Abdomen- normal bowel sounds, nondistended, soft, nontender Extremities- no pretibial edema, no calf tenderness Neuro- sleeping Skin- warm & dry Results & Data Results & Data ([facility]) Vital Signs (Past 12 Hours) Vital Signs Temp Pulse Resp BP Pulse Ox O2 Del Method 06/04/22 08:00 Room Air 06/04/22 07:47 37.0 C 108 H 20 123/84 93 Room Air all noted and reviewed including below
[2022-06-05] MEDS: MoRPHine SULFATE 2 MG/ML CARP IV PRN ×4 (02:41→12:10)
[2022-06-05] MEDS: risperiDONE 0.5 MG TABLET PO SCH ×3 (05:36→22:12)
[2022-06-05] MEDS: LACTULOSE SYRUP 10 GM/15 ML BTL 960 ML PO SCH ×2 (09:56→22:12)
--- NOTE | 2022-06-05 17:06 | Hospitalist Progress Note ---
Date of Service June 05, 2022 Assessment & Plan (1) Metastatic disease: Plan: Heme/onco on board debating whether to do biposy or not heme/onco and palliative care d/w family and patient currently on comfort measures 06/04 transitioned to comfort measures yesterday patient comfortable overall continue PRN Morphine, Ativan, etc 06/05 Continue as needed morphine, Ativan Discussed with RN (2) Pancytopenia: Plan: From above no signs of bleeding (3) Bacteremia: Plan: sepsis placed on ancef MSSA Plan On comfort care Admission and Anticipated Discharge Date Admission Date: May 27, 2022 Subjective Follow-up for comfort measures status only, metastatic disease, etc. Discussed with patient's RN, patient has required multiple doses of morphine overnight Appears to be more comfortable this morning Patient seen examined at the bedside Mostly sleeping, awakens to verbal stimuli Mostly mumbling words, not oriented Not in distress, no signs of pain No other issues noted Review of Systems Review of Systems: all noted and negative except for above Physical Exam Physical Exam: General-drowsy, not in distress, breathing with no effort or accessory muscle use Eyes- anicteric Neck- no JVD Lungs- clear breath sounds bilaterally Heart- normal rate, regular rhythm; no murmurs Abdomen- normal bowel sounds, nondistended, soft, nontender Extremities- no pretibial edema, no calf tenderness Neuro- alert, oriented x 3; no gross focal neurologic deficits Skin- warm & dry Results & Data Results & Data ([facility]) Vital Signs (Past 12 Hours) Vital Signs O2 Del Method 06/05/22 08:45 Room Air all noted and reviewed including below
[2022-06-06] MEDS: risperiDONE 0.5 MG TABLET PO SCH ×2 (06:17→11:53)
[2022-06-06] MEDS: LACTULOSE SYRUP 10 GM/15 ML BTL 960 ML PO SCH (08:18)
[2022-06-06] MEDS: LORazepam 2 MG/1 ML VIAL IV PRN (09:25)
[2022-06-06] MEDS: MoRPHine SULFATE 2 MG/ML CARP IV PRN (09:32)
--- NOTE | 2022-06-06 09:50 | Palliative Care Progress Note ---
Date of Service June 06, 2022 Assessment & Plan (1) Abdominal pain: Plan: Continue prn morphine. Monitor for signs of discomfort. (2) Agitation: Plan: Unable to take po risperdal. Suspect restlessness is at least in part, delirium, which has been a problem for him. Continue lorazepam. Could use zyprexa ODT if needed. (3) Palliative care encounter: Plan: He appears to be actively dying. I called his SO, Alis, to update. She spent most of the weekend with him and has noticed progressive lethargy. Discussed likelihood that he will today. She is on her way in. Discussed with RN. Admission and Anticipated Discharge Date Admission Date: May 27, 2022 Subjective No response to voice or touch. Tolerates routine care. Has had morphine x 3 for restlessness. Reaching out. Review of Systems Review of Systems: Unobtainable due to reduced consciousness Physical Exam Constitutional: no acute distress ENMT: Mouth: + dry oral mucous membranes Respiratory: no respiratory distress no audible secretions Cardiovascular: irregular, bradycardia Skin: cool, mottled Neurologic: + obtunded Results & Data ([facility]) Vital Signs (Past 12 Hours) Vital Signs Pulse Resp BP O2 Del Method 06/06/22 09:43 56 L 20 96/50 L 06/06/22 08:00 Room Air PG Care Time/CCT Total # of Minutes Spent Total Time Spent with Patient: Total time spent is greater than 50% in coordination of care (as documented) at patient's floor/unit and/or counseling patient: Coding Level of Care Code 11384 SUB INP/OBS CARE 2/35MIN Diagnoses Abdominal pain R10.9 Agitation R45.1 Palliative care encounter Z51.5
--- NOTE | 2022-06-06 18:05 | Hospitalist Progress Note ---
Date of Service June 06, 2022 delayed entry date of service noted above Assessment & Plan (1) Metastatic disease: Plan: Heme/onco on board Biopsy contemplated, family declined heme/onco and palliative care d/w family and patient currently on comfort measures 06/04 transitioned to comfort measures yesterday patient comfortable overall continue PRN Morphine, Ativan, etc 06/05 Continue as needed morphine, Ativan Discussed with RN 06/06 Patient pronounced (2) Pancytopenia: Plan: From above no signs of bleeding (3) Bacteremia: Plan: sepsis placed on ancef MSSA Metabolic Encephalopathy Secondary to bacteremia Plan On comfort care Admission and Anticipated Discharge Date Admission Date: May 27, 2022 Subjective Follow-up for metastatic disease, etc. Informed by RN that patient has ceased to breathe, family at the bedside Patient seen and examined at bedside, no pulse rate, respiration, pupillary reflex Patient pronounced Patient's family at the bedside, extended condolences to the family Review of Systems Review of Systems: Patient Physical Exam Physical Exam: No pulse rate, respiration, pupillary reflex Results & Data Results & Data ([facility]) Vital Signs (Past 12 Hours) Vital Signs Pulse Resp BP O2 Del Method 06/06/22 09:43 56 L 20 96/50 L 06/06/22 08:00 Room Air all noted and reviewed including below
--- NOTE | 2022-06-16 17:59 | Discharge Summary ---
Discharge Summary Date of Service June 16, 2022 Notes For Next Care Provider Medication Changes From Visit patient Admission HPI Per Admitting Provider 62-year-old male with PMH DM type II, HLD, nonischemic cardiomyopathy, severe aortic valve stenosis s/p bioprosthetic aortic valve replacement, paroxysmal atrial fibrillation anticoagulant Eliquis, BPH, and other problems listed below who presents to the ED from [facility] for evaluation of hypotension. History obtained from review of outpatient record and patient's significant other who is the bedside. 04/02/2022-04/07/2022 -admitted to [facility] [place] left MCA CVA. Thrombectomy was attempted however occlusion was found to be chronic. Patient discharged to [facility] for rehab and returned home on 04/17/2022. 04/24/2022-04/27/2022 -admitted to [facility] for heart failure exacerbation, patient signed out AMA 04/30/2022-05/20/2022-admitted to [facility] [place] for trauma after falling down a set of 15 steps. Injuries included epistaxis, forehead lacerations, bilateral open nasal bone fracture, maxillary fracture, C5 spinous process fracture, nondisplaced fracture of middle finger. Incidental findings on imaging during admission included mediastinal lymphadenopathy, pulmonary nodules, liver lesions. Patient discharged to [facility] again where he remains today. Per significant other at the bedside, she states that the patient has not been participating in therapy and that he has been too weak. Over the past several days, she notes increasing lower extremity edema and legs have been weeping. No reported fevers. Appetite has been fair. Patient sent to the ED today for evaluation of hypotension. Upon arrival, patient was hypotensive at 64/44. This improved after a dose of albumin. Labs show WBC 6.9K, Hgb 8.2, platelets 51K, initial lactate 5.4 --> 3.4, HS troponin 66.4, procalcitonin 31.04, transaminitis -T bili 0.9, AST 92, ALT 184, alk phos 452. CT abdomen pelvis shows signs of diffuse metastatic disease. Patient was given IV cefepime and IV Vanco. Admission Exam Per Admitting Provider Constitutional: well developed, well nourished and + ill appearing; no acute distress Eyes: PERRL, conjunctivae normal, anicteric sclerae Faint bilateral periorbital ecchymosis noted ENMT: external ear and nose normal, oropharynx normal Respiratory: normal respiratory effort; no respiratory distress Auscultation: + diminished lung sounds Cardiovascular: Rate/Rhythm: regular rate and regular rhythm Vessels: normal peripheral pulses Extremities: + edema (+2-3 pitting edema BLE) Gastrointestinal (Abdomen): normal bowel sounds, soft, nontender, no hepatosplenomegaly Musculoskeletal: Extremities: no cyanosis and no clubbing Generally weak throughout Skin: no rashes, warm and dry Psychiatric: Orientation: oriented to person; + not alert (Awakens to verbal stimuli), + not oriented to place and + not oriented to time Principal Dx & Hospital Course #1 = Principal Diagnosis (1) Metastatic disease: Heme/onco on board Biopsy contemplated, family declined heme/onco and palliative care d/w family and patient currently on comfort measures 06/04 transitioned to comfort measures yesterday patient comfortable overall continue PRN Morphine, Ativan, etc 06/05 Continue as needed morphine, Ativan Discussed with RN 06/06 Patient pronounced (2) Pancytopenia: From above no signs of bleeding (3) Bacteremia: sepsis placed on ancef MSSA Metabolic Encephalopathy Secondary to bacteremia Plan On comfort care Discharge Exam No pulse rate, respiration, pupillary reflex Updated Medication List Medication Instructions Recorded Confirmed Type tamsulosin 0.4 mg capsule (Flomax) 0.4 mg PO DAILY 02/12/20 05/27/22 History acetaminophen 325 mg tablet 650 mg PO Q4H PRN Pain 05/27/22 05/27/22 History (Tylenol) apixaban 5 mg tablet (Eliquis) 5 mg PO BID 05/27/22 05/27/22 History atorvastatin 40 mg tablet 40 mg PO HS 05/27/22 05/27/22 History bacitracin 500 unit/gram topical 1 applic topical BID 05/27/22 05/27/22 History ointment bisacodyl 10 mg rectal suppository 10 mg [place] DAILY PRN Constipation 05/27/22 05/27/22 History clotrimazole 1 % topical cream 1 applic topical BID 05/27/22 05/27/22 History (Clotrimazole AF) empagliflozin 25 mg tablet 25 mg PO QAM 05/27/22 05/27/22 History (Jardiance) folic acid 1 mg tablet 1 mg PO DAILY 05/27/22 05/27/22 History furosemide 40 mg tablet (Lasix) 40 mg PO BID 05/27/22 05/27/22 History insulin aspart U-100 100 unit/mL 10 unit subcut TIDM 05/27/22 05/27/22 History subcutaneous solution insulin glargine 100 unit/mL 27 unit subcut HS 05/27/22 05/27/22 History subcutaneous solution (Lantus U-100 Insulin) lactulose 10 gram/15 mL oral 10 g PO BID 05/27/22 05/27/22 History solution magnesium hydroxide 400 mg/5 mL 30 ml PO DAILY PRN Constipation 05/27/22 05/27/22 History oral suspension (Milk of Magnesia) melatonin 3 mg tablet 9 mg PO HS 05/27/22 05/27/22 History metoprolol succinate 50 mg 50 mg PO DAILY 05/27/22 05/27/22 History tablet,extended release 24 hr multivitamin with minerals 1 tab PO DAILY 05/27/22 05/27/22 History ondansetron HCl 4 mg tablet 4 mg PO Q4H PRN NAUSEA/VOMITING 05/27/22 05/27/22 History polyethylene glycol 3350 17 17 g PO QDL PRN Constipation 05/27/22 05/27/22 History gram/dose oral powder (Miralax) potassium chloride 20 mEq 40 meq PO BID 05/27/22 05/27/22 History tablet,extended release risperidone 0.25 mg tablet 0.25 mg PO Q8H 05/27/22 05/27/22 History sacubitril 24 mg-valsartan 26 mg 1 tab PO Q12H 05/27/22 05/27/22 History tablet (Entresto) sennosides 8.6 mg tablet (senna) 17.2 mg PO BID 05/27/22 05/27/22 History sennosides 8.6 mg-docusate sodium 1 tab-cap PO QDL PRN Constipation 05/27/22 05/27/22 History 50 mg tablet (Senokot-S) thiamine HCl (vitamin B1) 100 mg 100 mg PO DAILY 05/27/22 05/27/22 History tablet Hospital Stay Data Consultations 05/27/22 15:40 ED Decision to Admit Stat 05/27/22 21:21 Consult Palliative Care Routine 05/29/22 12:16 Consult Oncology Routine Diagnostic Imagining Performed 05/27/22 12:16 CT Abd and Pelvis [CT abd pelvis IV con only] Stat CT angio chest PE protocol Stat 05/27/22 19:07 US biopsy liver Routine 05/27/22 19:[address] [CT head/brain wo con] Urgent Total Time Total Time Spent Total Time Spent (In Minutes): < 30 minutes
--- NOTE | 2022-06-23 06:40 | Coding Query ---
CODING QUERY To promote full compliance with coding requirements relating to patient care, provider participation is requested in all cases of medical insurance coder uncertainty. Please assist us with the question(s) below: Coding Question(s): Please document below the Time & Cause of . Thank you . Tyrese Fernandez [facility] Physician's Response(s): Time of : Cause of : Principal Diagnosis: "that condition established after study, to be chiefly responsible for occasioning the admission of the patient to the hospital for care." Co-Existing Principal Diagnosis: "when two or more diagnoses equally meet the criteria for principal diagnosis as determined by the circumstances of admission, diagnostic work up, and/or therapy provided, and the Alphabetic Index, Tabular List, or another coding guideline does not provide sequencing direction, any one of the diagnoses may be sequenced first." "When the physician has documented what appears to be a current diagnosis in the body of the record, but has not included the diagnosis in the final diagnostic statement, the physician should be asked whether the diagnosis should be added." (Source [facility] 2 QTR90. p3-4) RONEN
== END 2022-06-06 14:41 | disposition expired | DRG 871 ==
LOC: ED 12:07 → 4W 15:50 → SUATTDRO 15:50 → 4W 18:25 → 3E 06-05 16:05